=== PATIENT | male | born 1945 | race Caucasian/White ===

== ENCOUNTER 2016-10-08 07:35 | Inpatient (IN) | payer OTHER ==
--- NOTE | 2016-10-08 07:57 | EDPHY ---
H & P Time Seen by Provider: 10/08/16 07:57 HPI/ROS: CHIEF COMPLAINT: Per the patient, I feel helpless, per his he needs somewhere to be HISTORY OF PRESENT ILLNESS: This 71-year-old man has a long history of alcoholism. Apparently he has the admission arranged at [facility] in [place] for detox but starting gait is unclear. The patient presents telling his nurse he feels suicidal and telling me he feels hopeless and tired of living alcohol control my life. Apparently his filed for divorce yesterday. She says that he is leaving burners on and intermittently hallucinating at home. The patient has never had diagnosis of DTs or alcohol withdrawal seizures. His last drink he says was last night. Patient admits to suicidal thoughts but currently denies a plan. Symptoms moderate. REVIEW OF SYSTEMS: Eye: no change in vision ENT: no sore throat Cardiac: no chest pain or syncope Pulmonary: no cough or SOB Abdomen: no vomiting, diarrhea, abdominal pain Musculoskeletal: no back pain or neck pain, old right upper extremity amputation unchanged. Skin: Abrasion on his left elbow and right forehead and both knees from multiple falls over the past week. Neuro: no headache Constitutional: no fever : no urinary symptoms A comprehensive 10 point review of systems is otherwise negative aside from elements mentioned in the history of present illness. 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 Anxiety and alcoholism. Liang history and physical dated 12/19/2015 personally reviewed by myself. Includes hypertension, trigeminal neuralgia, hepatitis-C. Social history: Smoker, uses alcohol. General Appearance: Alert and conversant, cooperative. Eyes: No scleral icterus. ENT, Mouth: Dry mucous membranes. Respiratory: Normal respiratory effort, breath sounds equal, lungs are clear to auscultation. Cardiovascular: Regular rate and rhythm. Tachycardic. Gastrointestinal: Abdomen is soft and non tender. Neurological: Alert and oriented x3. Normally conversant. Face symmetric, normal movement and sensation in all extremities. He is moderately tremulous. He is not confused. He is able to lift each leg off the bed independently and is able to have a logical conversation with me. Skin: Warm and dry, no rashes. Musculoskeletal: Right upper extremity above elbow amputation, stump looks clean dry and intact. Psychiatric: Not agitated. Depressed, admits suicidal ideation, denies plan. Emergency Department course/MDM: Alcohol 106 but patient clinically has evidence of withdrawal. 1 mg Ativan IV. Case management and psychiatric consultations. 1105: additional 2mg IV ativan for continued tremor. 1156: Still tremulous after 3mgIV ativan; 2 additional mg IV ativan. Admit for alcohol withdrawal, 5mg IV ativan in ED. Smoking Status: Current every day smoker Constitutional: Initial Vital Signs Temperature (C) 36.6 C 10/08/16 07:40 Heart Rate 111 H 10/08/16 07:40 Respiratory Rate 22 H 10/08/16 07:40 Blood Pressure 141/94 H 10/08/16 07:40 O2 Sat (%) 97 10/08/16 07:40 O2 Delivery Mode Room Air Allergies/Adverse Reactions: No Known Allergies Allergy (Verified 10/08/16 07:39) Home Medications: Medication Instructions Recorded Herbals/Supplements -Info Only 1 ea PO DAILY 12/18/15 Ibuprofen [Motrin (*)] 200 mg PO Q8 PRN 12/18/15 Lisinopril [Zestril 40 mg (*)] 40 mg PO DAILY 12/18/15 Multivitamins [Multivitamin (*)] 1 each PO DAILY 12/18/15 Naphazoline HCl/Glycerin [Redness 1 drop EACHEYE DAILY PRN 12/18/15 Relief Eye Drops] [place]-3 Fatty Acids [Fish Oil 1000 1,000 mg PO DAILY 12/18/15 mg (*)] Amitriptyline HCl [Elavil 50 mg 25 mg PO HS #30 tab 12/23/15 (*)] Levothyroxine [Synthroid 25 mcg 25 mcg PO DAILY10 #30 tab 12/23/15 (*)] Pregabalin [Lyrica] 25 mg PO TID #90 cap 12/23/15 Tetrahydrozoline 0.05% [Visine (*)] 1 drops OP PRN PRN #0 opht.btl 12/23/15 Medical Decision Making - Diagnostics EKG Interpretation: 12-lead EKG interpreted by me; official reading is in trace master. My interpretation is sinus tachycardia, no acute ischemic changes. Imaging: Negative noncontrast head CT for trauma, reviewed by myself. Differential Diagnosis: Differential for depression considered including but not limited to axis 1 depression, situational reaction, metabolic, drug or alcohol related. Consult/Admit Bed Type: [facility] for Danny 1205 Critical Care Time: Critical care time spent by me, Dr. Patricia, exclusively with the care of this patient was 30 minutes, exclusive of PA or TRUCK DRIVER RUBBISH COLLECTOR time and exclusive of separate procedures. The organ system at risk was neurologic with alcohol withdrawal and I ordered multiple diagnostic studies including labs and imaging, multiple doses of intravenous benzodiazepines, discussion with hospitalist and repeat evaluations, to stabilize the patient and prevent worsening of the patient's condition. - Data Points Laboratory Results: Laboratory Results 10/08/16 08:02 10/08/16 08:02 10/08/16 10/08/16 08:58 08:02 WBC 4.44 10^3/uL (3.80-9.50) RBC 4.20 L 10^6/uL (4.40-6.38) Hgb 15.0 g/dL (13.7-17.5) Hct 42.3 % (40.0-51.0) MCV 100.7 H fL (81.5-99.8) MCH 35.7 H pg (27.9-34.1) MCHC 35.5 g/dL (32.4-36.7) RDW 12.8 % (11.5-15.2) Plt Count 185 10^3/uL (150-400) MPV 9.7 fL (8.7-11.7) Neut % (Auto) 61.9 % (39.3-74.2) Lymph % (Auto) 24.1 % (15.0-45.0) [place] % (Auto) 11.3 % (4.5-13.0) Eos % (Auto) 1.6 % (0.6-7.6) Baso % (Auto) 0.9 % (0.3-1.7) Nucleat RBC Rel Count 0.0 % (0.0-0.2) Absolute Neuts (auto) 2.75 10^3/uL (1.70-6.50) Absolute Lymphs (auto) 1.07 10^3/uL (1.00-3.00) Absolute Monos (auto) 0.50 10^3/uL (0.30-0.80) Absolute Eos (auto) 0.07 10^3/uL (0.03-0.40) Absolute Basos (auto) 0.04 10^3/uL (0.02-0.10) Absolute Nucleated RBC 0.00 10^3/uL (0-0.01) Immature Gran % 0.2 % (0.0-1.1) Immature Gran # 0.01 10^3/uL (0.00-0.10) Sodium 142 mEq/L (134-144) Potassium 3.7 mEq/L (3.5-5.2) Chloride 102 mEq/L (97-110) Carbon Dioxide 23 mEq/l (22-31) Anion Gap 17 mEq/L (8-16) BUN 14 mg/dL (7-23) Creatinine 0.8 mg/dL (0.7-1.3) Estimated GFR > 60 Glucose 126 H mg/dL (70-100) Calcium 8.9 mg/dL (8.5-10.4) Total Bilirubin 1.1 mg/dL (0.1-1.4) AST 181 H IU/L (17-59) ALT 120 H IU/L (21-72) Alkaline Phosphatase 125 IU/L (38-126) Total Protein 6.8 g/dL (6.3-8.2) Albumin 4.4 g/dL (3.5-5.0) TSH 4.150 uIU/mL (0.465-4.680) Salicylates < 1.0 L mg/dL (2.0-20.0) Urine Opiates Screen NEGATIVE (NEGATIVE) Acetaminophen < 10 L mcg/mL (10.0-30.0) Urine Barbiturates NEGATIVE (NEGATIVE) Ur Phencyclidine Scrn NEGATIVE (NEGATIVE) Ur Amphetamine Screen NEGATIVE (NEGATIVE) U Benzodiazepines Scrn NEGATIVE (NEGATIVE) Urine Cocaine Screen NEGATIVE (NEGATIVE) U Marijuana (THC) Screen NEGATIVE (NEGATIVE) Ethyl Alcohol 106 H mg/dL (0-10) Medications Given: Discontinued Medications Chlordiazepoxide HCl (Librium) 50 mg PO ONCE ONE Stop: 10/08/16 13:25 Last Admin: 10/08/16 13:53 Dose: Not Given Sodium Chloride (Ns) 1,000 mls @ 0 mls/hr IV EDNOW ONE PRN Reason: As Directed Stop: 10/08/16 08:09 Last Admin: 10/08/16 08:10 Dose: 1,000 mls Sodium Chloride (Ns) 1,000 mls @ 0 mls/hr IV ONCE ONE PRN Reason: Wide Open Stop: 10/08/16 11:58 Last Admin: 10/08/16 12:00 Dose: 1,000 mls Lorazepam (Ativan Injection) 1 mg IVP EDNOW ONE Stop: 10/08/16 08:36 Last Admin: 10/08/16 08:58 Dose: 1 mg Lorazepam (Ativan Injection) 2 mg IVP EDNOW ONE Stop: 10/08/16 11:16 Last Admin: 10/08/16 11:21 Dose: 2 mg Lorazepam (Ativan Injection) 2 mg IVP EDNOW ONE Stop: 10/08/16 11:57 Last Admin: 10/08/16 12:06 Dose: 2 mg Departure - Departure Disposition: [facility] Acute Clinical Impression: Alcohol withdrawal Qualifiers: Qualifier Code: (F10.230) Alcohol dependence with withdrawal, uncomplicated Condition: Fair
[2016-10-08] MEDS ORDERED: NS 1,000 ML IV ONE ×2 (08:08→11:57)
[2016-10-08 08:11] LABS: % IMMATURE GRANULYOCYTES 0.2 % (0.0-1.1); ABSOLUTE IMMATURE GRANULOCYTES 0.01 10^3/uL (0.00-0.10); ADD DIFF? NO; ADD MORPH? NO; ADD SCAN? NO; ATYPICAL LYMPHOCYTE FLAG 0 (0-99); FRAGMENT RBC FLAG 0 (0-99); HEMATOCRIT 42.3 % (40.0-51.0); LEFT SHIFT FLG 0 (0-99); LIPEMIA HEMOLYSIS FLAG 90 (0-99); MEAN CELL HEMOGLOBIN 35.7 pg (27.9-34.1); MEAN CELL HEMOGLOBIN CONCENTR. 35.5 g/dL (32.4-36.7); MEAN CELL VOLUME 100.7 fL (81.5-99.8); MEAN PLATELET VOLUME 9.7 fL (8.7-11.7); PLATELET CLUMPS FLAG 0 (0-99); PLATELET COUNT 185 10^3/uL (150-400); RED CELL DISTRIBUTION WIDTH 12.8 % (11.5-15.2)
[2016-10-08 08:26] LABS: ALANINE AMINOTRANSFERASE 120 IU/L (21-72); ALBUMIN 4.4 g/dL (3.5-5.0); ALKALINE PHOSPHATASE 125 IU/L (38-126); ANION GAP 17 mEq/L (8-16); ASPARTATE AMINOTRANSFERASE 181 IU/L (17-59); BILIRUBIN,TOTAL 1.1 mg/dL (0.1-1.4); CALCIUM 8.9 mg/dL (8.5-10.4); CARBON DIOXIDE 23 mEq/l (22-31); CHLORIDE 102 mEq/L (97-110); CREATININE 0.8 mg/dL (0.7-1.3); ETHANOL SERUM 106 mg/dL (0-10); GLOMERULAR FILTRATION RATE > 60; GLUCOSE 126 mg/dL (70-100); POTASSIUM 3.7 mEq/L (3.5-5.2); SODIUM 142 mEq/L (134-144); TOTAL PROTEIN 6.8 g/dL (6.3-8.2)
[2016-10-08] MEDS ORDERED: LORazepam 2 MG/ML INJ IVP ONE ×3 (08:35→11:56)
[2016-10-08 09:01] LABS: SALICYLATE < 1.0 mg/dL (2.0-20.0)
--- NOTE | 2016-10-08 11:11 | CPEKG ---
Heart Rate: 102 RR Interval: 588 P-R Interval: 168 QRSD Interval: 84 QT Interval: 344 QTC Interval: 449 P [place]: 69 QRS [place]: 46 T Wave [place]: 69 EKG Severity - OTHERWISE NORMAL ECG - EKG Impression: SINUS TACHYCARDIA Electronically Signed By: Frandy Patricia 08-Oct-2016 11:59:12
[2016-10-08] MEDS ORDERED: LORazepam 2 MG/ML INJ ONE (11:25)
--- NOTE | 2016-10-08 12:06 | CT ---
CT Brain (Without Contrast) at 1131 hours History: Head trauma, altered mental status, EtOH. Fall, hit right for head. Comparison: August 2016. Technique: Axial computed tomographic images of the brain without contrast. Dose reduction technique s were utilized. Findings: Ventricles, cisterns, and sulci are slightly widened consistent mild atrophy. No hydroceph alus, midline shift/herniation, or epidural/subdural hematomas. No acute intraparenchymal hemorrhage, definite infarct, or mass effect. Bone windows demonstrate no displaced fractures. Paranasal sinuses and mastoid air cells are clear. Impression: 1. Mild cerebral atrophy.. 2. No epidural or subdural hematoma. Findings and recommendations discussed with Emergency Department physician, Dr. Frandy Patricia, at 1205 ho ur, today. Final report concurs with initial preliminary interpretation.
[2016-10-08] MEDS ORDERED: THIAMINE HCL 500 MG in NS 100 ML IV ONE (13:24)
[2016-10-08] MEDS ORDERED: NS 1,000 ML IV SCH (13:30)
[2016-10-08] MEDS: chlordiazePOXIDE 25 MG CAP PO ONE ×2 (13:44→13:53)
[2016-10-08] MEDS: LORazepam 2 MG/ML INJ IVP PRN ×3 (13:53→22:05)
[2016-10-08] MEDS ORDERED: ONDANSETRON DISINTEGRATING 4 MG TAB PO PRN (14:13)
[2016-10-08] MEDS ORDERED: ONDANSETRON 4 MG/2 ML VIAL IVP PRN (14:13)
[2016-10-08] MEDS: D5W 1/2 NS W/ 20 KCl/L 1,000 ML IV SCH (14:31)
[2016-10-08] MEDS: DEXMEDETOMIDINE HCL 400 MCG in NS 100 ML IV SCH (15:56)
--- NOTE | 2016-10-08 17:41 | GHP ---
[f rep st] HISTORY AND PHYSICAL DATE OF ADMISSION: 10/08/2016 CHIEF COMPLAINT: Alcohol withdrawal. HISTORY OF PRESENT ILLNESS: This is a 71-year-old male with a history of significant alcoholism. He has been bingeing quite severely for the last several weeks. His apparently filed for divorce yesterday and since then he has been hallucinating and going into DTs. According to the ER physician, he has admitted to suicidal thoughts. The patient is quite confused at this time and not really par ticipating in history. REVIEW OF SYSTEMS: A 10-point review of systems was obtained and was otherwise negative. PAST MEDICAL HISTORY: 1. Alcoholism. 2. Right upper extremity amputation for bone cancer as a child. 3. Hypertension. 4. Trigeminal neuralgia. 5. Hepatitis C. SOCIAL HISTORY: Smoker. Drinks significant amount of alcohol daily. FAMILY HISTORY: Father had alcoholism. PHYSICAL EXAM: VITAL SIGNS: Afebrile. Blood pressure is 137/81, heart rate 95, oxygen saturation 9 6% on room air. GENERAL: Patient is confused but no apparent distress. HEENT: Nonicteric sclerae. Extraocular movements intact. Moist mucous membranes. NECK: Supple. No thyromegaly. LUNGS: Go od effort. Clear to auscultation bilaterally. CARDIOVASCULAR: Regular rate and rhythm. No murmurs , gallops. ABDOMEN: Positive bowel sounds. Soft, nontender, nondistended. No hepatosplenomegaly. EXTREMITIES: No clubbing, cyanosis, or edema. Right arm amputation. NEURO: Confused and tremulou s. LABORATORY DATA: CBC is normal. Chemistry is essentially normal. There are elevated liver function tests. Alcohol level is 106. IMAGING: CT scan head is negative. ASSESSMENT: This is a 71-year-old male presenting with alcohol withdrawal. PLAN: Will place on [facility] protocol. I think the patient's is looking at inpatient types of [facility]. /[id number]/MODL
[2016-10-09 05:07] LABS: % IMMATURE GRANULYOCYTES 0.4 % (0.0-1.1); ABSOLUTE IMMATURE GRANULOCYTES 0.01 10^3/uL (0.00-0.10); ADD DIFF? NO; ADD MORPH? NO; ADD SCAN? NO; ATYPICAL LYMPHOCYTE FLAG 10 (0-99); FRAGMENT RBC FLAG 0 (0-99); HEMATOCRIT 34.7 % (40.0-51.0); HEMOGLOBIN 12.1 g/dL (13.7-17.5); LEFT SHIFT FLG 0 (0-99); LIPEMIA HEMOLYSIS FLAG 90 (0-99); MEAN CELL HEMOGLOBIN 35.6 pg (27.9-34.1); MEAN CELL HEMOGLOBIN CONCENTR. 34.9 g/dL (32.4-36.7); MEAN CELL VOLUME 102.1 fL (81.5-99.8); MEAN PLATELET VOLUME 10.1 fL (8.7-11.7); PLATELET CLUMPS FLAG 0 (0-99); PLATELET COUNT 105 10^3/uL (150-400); RED CELL DISTRIBUTION WIDTH 12.1 % (11.5-15.2)
[2016-10-09 05:24] LABS: ANION GAP 7 mEq/L (8-16); CARBON DIOXIDE 23 mEq/l (22-31); CHLORIDE 107 mEq/L (97-110); CREATININE 0.5 mg/dL (0.7-1.3); GLOMERULAR FILTRATION RATE > 60; GLUCOSE 139 mg/dL (70-100); MAGNESIUM 1.7 mg/dL (1.6-2.3); POTASSIUM 4.3 mEq/L (3.5-5.2); SODIUM 137 mEq/L (134-144)
[2016-10-09] MEDS: ENOXAPARIN 40 MG/0.4 ML SYR SC SCH (08:39)
[2016-10-09] MEDS: chlordiazePOXIDE 25 MG CAP PO PRN ×4 (08:39→21:03)
[2016-10-09] MEDS: THIAMINE HCL 500 MG in NS 100 ML IV SCH (08:39)
[2016-10-09] MEDS ORDERED: MAGNESIUM SULF 2 GM/WATER 50 ML IV ONE (10:47)
--- NOTE | 2016-10-09 10:57 | HOSPPROG ---
Hospitalist Progress Note Assessment/Plan: * alcohol withdrawal * continue Librium/ Ativan/ Precedex * urinary retention * Angel placed * probably due to BPH * start Flomax * hypertension * probable depression Subjective: Confused Objective: Vital Signs Temp Pulse Resp BP Pulse Ox 35 C L 47 L 20 137/83 H 97 10/09/16 08:00 10/09/16 10:06 10/09/16 10:06 10/09/16 10:06 10/09/16 10:06 Laboratory Results 10/09/16 04:55 10/09/16 04:55 10/08/16 10/09/16 10/10/16 05:59 05:59 05:59 Intake Total 4628 Output Total 550 Balance 4078 - Physical Exam Constitutional: no apparent distress, appears nourished, not in pain Eyes: anicteric sclera, EOMI Ears, Nose, Mouth, Throat: moist mucous membranes, hearing normal, ears appear normal Cardiovascular: regular rate and rhythym Respiratory: no respiratory distress Gastrointestinal: normoactive bowel sounds, soft, non-tender abdomen, no palpable masses Neurologic: No AAOx3 Psychiatric: interacting appropriately, not anxious, not encephalopathic, thought process linear ICD10 Worksheet Patient Problems: Problems Problem Status Diagnosed Alcohol withdrawal Acute PTSD (post-traumatic stress disorder) Acute Severe major depression Acute
[2016-10-09] MEDS: TAMSULOSIN HCL 0.4 MG CAP PO SCH ×2 (11:41→21:03)
--- NOTE | 2016-10-09 12:23 | GCON ---
[f rep st] CONSULTATION FUNERAL ASSISTANT CONSULTATION REASON FOR ADMISSION: Alcohol withdrawal. HISTORY OF PRESENT ILLNESS: The patient is a 71-year-old white male with a past medical history of a lcoholism, right upper extremity amputation as a child, hypertension, hepatitis C, trigeminal neuralg ia. He apparently had been binge drinking for the last several weeks. His recently filed for d ivorce. He has been hallucinating, going into DTs. He was also having some suicidal ideation and he was admitted. Currently, he is resting comfortably. He is currently on CIWA protocol. PAST MEDICAL HISTORY: Significant for alcoholism, right upper extremity amputation, hypertension, tr igeminal neuralgia, hepatitis C. ALLERGIES: No known allergies to medications. SOCIAL HISTORY: Excessive alcohol use. He is also a smoker. He is though going through a d ivorce. PHYSICAL EXAM: VITAL SIGNS: Blood pressure is 123/77, pulse 64, respirations 17, temp 35, oxygen sa turation 97% on room air. GENERAL: He is a well-developed, well-nourished 71-year-old male who is c onfused and vaguely arousable. HEENT: Eyes: OPAL. EOMI. Throat shows no erythema or tonsillar hy pertrophy. NECK: Supple. No cervical adenopathy. HEART: Regular rate and rhythm without murmurs, rubs, or gallops. LUNGS: Mild prolongation of expiratory phase but no wheeze. ABDOMEN: Soft, non tender. Bowel sounds present in all 4 quadrants. EXTREMITIES: No clubbing, cyanosis, or edema. LABORATORIES: White count is 2.6, hemoglobin 12, hematocrit 34, platelet count is 105, MCV is elevat ed at 102. Sodium 137, potassium 4.3, chloride 107, CO2 23, BUN 12, creatinine 0.5, glucose is 139. Alcohol level is 106. IMPRESSION: 1. Alcoholism. 2. Acute alcohol withdrawal. 3. History of hypertension. 4. Hepatitis C. RECOMMENDATION: 1. Agree with CIWA protocol. 2. DVT and PE prophylaxis. 3. Stress ulcer prophylaxis. 4. Adequate nutrition. /[id number]/MODL
[2016-10-09] MEDS: LORazepam 2 MG/ML INJ IVP PRN ×5 (12:52→22:57)
[2016-10-09] MEDS: DEXMEDETOMIDINE HCL 400 MCG in NS 100 ML IV SCH (15:34)
[2016-10-09] MEDS: D5W 1/2 NS W/ 20 KCl/L 1,000 ML IV SCH (16:18)
[2016-10-10 05:35] LABS: % IMMATURE GRANULYOCYTES 0.2 % (0.0-1.1); ABSOLUTE IMMATURE GRANULOCYTES 0.01 10^3/uL (0.00-0.10); ADD DIFF? NO; ADD MORPH? NO; ADD SCAN? NO; ATYPICAL LYMPHOCYTE FLAG 0 (0-99); FRAGMENT RBC FLAG 0 (0-99); HEMATOCRIT 36.3 % (40.0-51.0); HEMOGLOBIN 12.8 g/dL (13.7-17.5); LEFT SHIFT FLG 0 (0-99); LIPEMIA HEMOLYSIS FLAG 90 (0-99); MEAN CELL HEMOGLOBIN 36.3 pg (27.9-34.1); MEAN CELL HEMOGLOBIN CONCENTR. 35.3 g/dL (32.4-36.7); MEAN CELL VOLUME 102.8 fL (81.5-99.8); MEAN PLATELET VOLUME 10.6 fL (8.7-11.7); PLATELET CLUMPS FLAG 0 (0-99); PLATELET COUNT 101 10^3/uL (150-400); RED BLOOD CELL COUNT 3.53 10^6/uL (4.40-6.38); RED CELL DISTRIBUTION WIDTH 12.2 % (11.5-15.2)
[2016-10-10 05:46] LABS: ANION GAP 6 mEq/L (8-16); CALCIUM 7.8 mg/dL (8.5-10.4); CARBON DIOXIDE 21 mEq/l (22-31); CHLORIDE 109 mEq/L (97-110); CREATININE 0.5 mg/dL (0.7-1.3); GLOMERULAR FILTRATION RATE > 60; GLUCOSE 139 mg/dL (70-100); MAGNESIUM 1.9 mg/dL (1.6-2.3); POTASSIUM 4.4 mEq/L (3.5-5.2); SODIUM 136 mEq/L (134-144)
[2016-10-10] MEDS: D5W 1/2 NS W/ 20 KCl/L 1,000 ML IV SCH (08:10)
[2016-10-10] MEDS: THIAMINE HCL 500 MG in NS 100 ML IV SCH (08:10)
--- NOTE | 2016-10-10 09:09 | PDINTPN ---
Operational Intelligence Officer Progress Note Assessment/Plan: Assessment/Plan: * ETOH abuse * ETOH withdraw-high CIWA score -continue protocol -continue precedex * HTN * Hep C * VTE proph * Stress ulcer proph Subjective: somnolent, but arousable. Objective: Vital Signs Temp Pulse Resp BP Pulse Ox 36.8 C 60 29 H 111/66 97 10/09/16 20:00 10/10/16 07:39 10/10/16 07:39 10/10/16 07:39 10/10/16 07:39 Laboratory Results 10/10/16 05:00 10/10/16 05:00 10/09/16 10/10/16 10/11/16 05:59 05:59 05:59 Intake Total 4628 3506 Output Total 550 2600 Balance 4078 906 Physical Exam - Physical Exam General Appearance: No alert EENT: PERRL/EOMI, normal ENT inspection, pharynx normal Neck: non-tender, full range of motion, supple, normal inspection Respiratory: decreased breath sounds, prolonged expiration, No respiratory distress Cardiac/Chest: normal peripheral pulses, regular rate, rhythm, systolic murmur Peripheral Pulses: 2+: carotid (R), carotid (L), femoral (R), femoral (L), dorsalis-pedis (R), dorsalis-pedis (L) Abdomen: normal bowel sounds, non-tender, soft Male Genitalia: deferred Rectal: deferred Skin: normal color, warm/dry Extremities: normal range of motion, non-tender, normal inspection, normal capillary refill Neuro/Psych: No alert, No oriented x 3 ICD10 Worksheet Patient Problems: Problems Problem Status Diagnosed Alcohol withdrawal Acute PTSD (post-traumatic stress disorder) Acute Severe major depression Acute
[2016-10-10] MEDS: TAMSULOSIN HCL 0.4 MG CAP PO SCH ×2 (09:44→21:35)
[2016-10-10] MEDS: ENOXAPARIN 40 MG/0.4 ML SYR SC SCH (09:44)
[2016-10-10] MEDS: chlordiazePOXIDE 25 MG CAP PO PRN (10:12)
[2016-10-10] MEDS ORDERED: TETRAHYDROZOLINE 0.05% 15 ML OPHT.BTL OP PRN (10:13)
[2016-10-10] MEDS: DEXMEDETOMIDINE HCL 400 MCG in NS 100 ML IV SCH (12:50)
--- NOTE | 2016-10-10 15:29 | HOSPPROG ---
Hospitalist Progress Note Assessment/Plan: * alcohol withdrawal * continue Librium/ Ativan/ Precedex * urinary retention * Rivas placed * probably due to BPH * start Flomax * hypertension * probable depression Subjective: confused and somewhat agitated at times Objective: Vital Signs Temp Pulse Resp BP Pulse Ox 36.8 C 64 21 H 120/70 97 10/09/16 20:00 10/10/16 12:00 10/10/16 12:00 10/10/16 12:00 10/10/16 12:00 Laboratory Results 10/10/16 05:00 10/10/16 05:00 10/09/16 10/10/16 10/11/16 05:59 05:59 05:59 Intake Total 4644 3506 Output Total 550 2600 Balance 4078 906 - Physical Exam Constitutional: no apparent distress, appears nourished, not in pain Eyes: anicteric sclera, EOMI Ears, Nose, Mouth, Throat: moist mucous membranes Cardiovascular: regular rate and rhythym Respiratory: no respiratory distress, no rales or rhonchi, clear to auscultation Gastrointestinal: normoactive bowel sounds, soft, non-tender abdomen, no palpable masses Genitourinary: rivas in urethra Skin: warm Neurologic: No AAOx3 Psychiatric: encephalopathic ICD10 Worksheet Patient Problems: Problems Problem Status Diagnosed Alcohol withdrawal Acute PTSD (post-traumatic stress disorder) Acute Severe major depression Acute
[2016-10-10] MEDS: chlordiazePOXIDE 25 MG CAP PO SCH ×2 (17:25→21:35)
[2016-10-10] MEDS: GABAPENTIN 100 MG CAP PO SCH ×2 (17:25→21:35)
[2016-10-10] MEDS: LORazepam 2 MG/ML INJ IVP PRN (20:19)
[2016-10-10] MEDS ORDERED: AMITRIPTYLINE HCL 50 MG TAB PO SCH (21:00)
[2016-10-10] MEDS: AMITRIPTYLINE HCL 25 MG TAB PO SCH (21:35)
[2016-10-11] MEDS: LORazepam 2 MG/ML INJ IVP PRN ×4 (01:14→23:37)
[2016-10-11 04:32] LABS: % IMMATURE GRANULYOCYTES 0.6 % (0.0-1.1); ABSOLUTE IMMATURE GRANULOCYTES 0.04 10^3/uL (0.00-0.10); ADD DIFF? NO; ADD MORPH? NO; ADD SCAN? NO; ATYPICAL LYMPHOCYTE FLAG 0 (0-99); FRAGMENT RBC FLAG 0 (0-99); HEMATOCRIT 35.1 % (40.0-51.0); HEMOGLOBIN 12.7 g/dL (13.7-17.5); LEFT SHIFT FLG 0 (0-99); LIPEMIA HEMOLYSIS FLAG 90 (0-99); MEAN CELL HEMOGLOBIN 36.5 pg (27.9-34.1); MEAN CELL HEMOGLOBIN CONCENTR. 36.2 g/dL (32.4-36.7); MEAN CELL VOLUME 100.9 fL (81.5-99.8); MEAN PLATELET VOLUME 10.5 fL (8.7-11.7); PLATELET CLUMPS FLAG 0 (0-99); PLATELET COUNT 100 10^3/uL (150-400); RED BLOOD CELL COUNT 3.48 10^6/uL (4.40-6.38); RED CELL DISTRIBUTION WIDTH 11.9 % (11.5-15.2)
[2016-10-11 04:47] LABS: ANION GAP 4 mEq/L (8-16); CALCIUM 7.7 mg/dL (8.5-10.4); CARBON DIOXIDE 24 mEq/l (22-31); CHLORIDE 108 mEq/L (97-110); CREATININE 0.5 mg/dL (0.7-1.3); GLOMERULAR FILTRATION RATE > 60; GLUCOSE 96 mg/dL (70-100); MAGNESIUM 1.8 mg/dL (1.6-2.3); POTASSIUM 3.7 mEq/L (3.5-5.2); SODIUM 136 mEq/L (134-144)
[2016-10-11] MEDS: THIAMINE HCL 100 MG TAB PO SCH (08:08)
[2016-10-11] MEDS: GABAPENTIN 100 MG CAP PO SCH ×3 (08:08→23:15)
[2016-10-11] MEDS: chlordiazePOXIDE 25 MG CAP PO SCH ×3 (08:09→23:15)
[2016-10-11] MEDS: LISINOPRIL 40 MG TAB PO SCH (08:09)
[2016-10-11] MEDS: LEVOTHYROXINE 25 MCG TAB PO SCH (08:09)
[2016-10-11] MEDS: ENOXAPARIN 40 MG/0.4 ML SYR SC SCH (08:11)
--- NOTE | 2016-10-11 08:57 | PDINTPN ---
Semiconductor Processing Technician Progress Note Assessment/Plan: Assessment/Plan: * ETOH abuse * ETOH withdraw-still with high CIWA score -continue protocol -continue precedex * HTN * Hep C * VTE proph * Stress ulcer proph Subjective: Sedated/somnolent Objective: Vital Signs Temp Pulse Resp BP Pulse Ox 36.4 C 53 L 16 119/93 H 98 10/11/16 07:34 10/11/16 07:34 10/11/16 07:34 10/11/16 08:09 10/11/16 07:34 Laboratory Results 10/11/16 04:21 10/11/16 04:21 10/10/16 10/11/16 10/12/16 05:59 05:59 05:59 Intake Total 3506 2914 Output Total 2600 2500 Balance 906 414 Laboratory Results 10/11/16 04:21 10/11/16 04:21 10/11/16 04:21 Calcium 7.7 L mg/dL (8.5 - 10.4) Phosphorus 4.0 mg/dL (2.5 - 4.5) Magnesium 1.8 mg/dL (1.6 - 2.3) Physical Exam - Physical Exam General Appearance: no apparent distress, No alert EENT: PERRL/EOMI, normal ENT inspection, pharynx normal, TMs normal Neck: non-tender, full range of motion, supple, normal inspection Respiratory: chest non-tender, lungs clear, normal breath sounds Cardiac/Chest: normal peripheral pulses, regular rate, rhythm, systolic murmur Peripheral Pulses: 2+: carotid (R), carotid (L), femoral (R), femoral (L), dorsalis-pedis (R), dorsalis-pedis (L) Abdomen: normal bowel sounds, non-tender, soft Male Genitalia: deferred Rectal: deferred Skin: normal color, warm/dry Extremities: normal range of motion, non-tender, normal inspection, normal capillary refill ICD10 Worksheet Patient Problems: Problems Problem Status Diagnosed Alcohol withdrawal Acute PTSD (post-traumatic stress disorder) Acute Severe major depression Acute
[2016-10-11] MEDS ORDERED: TAMSULOSIN HCL 0.4 MG CAP PO SCH (09:00)
[2016-10-11] MEDS: TAMSULOSIN HCL 0.4 MG CAP PO SCH ×2 (09:04→23:15)
[2016-10-11] MEDS: D5W 1/2 NS W/ 20 KCl/L 1,000 ML IV SCH ×2 (10:03→18:11)
[2016-10-11] MEDS: DEXMEDETOMIDINE HCL 400 MCG in NS 100 ML IV SCH (10:57)
--- NOTE | 2016-10-11 13:48 | HOSPPROG ---
Hospitalist Progress Note Assessment/Plan: * alcohol withdrawal * continue Librium/ Ativan/ Precedex * urinary retention * Rivas placed * probably due to BPH * patient was on Flomax at home. Increase to twice daily * hypertension * probable depression Subjective: no new events Objective: Vital Signs Temp Pulse Resp BP Pulse Ox 36.4 C 56 L 26 H 121/85 H 98 10/11/16 12:00 10/11/16 12:00 10/11/16 12:00 10/11/16 12:00 10/11/16 12:00 Laboratory Results 10/11/16 04:21 10/11/16 04:21 10/10/16 10/11/16 10/12/16 05:59 05:59 05:59 Intake Total 3506 2914 Output Total 2600 2500 Balance 906 414 discussed with Pulmonary - Physical Exam Constitutional: no apparent distress, appears nourished, not in pain Eyes: anicteric sclera, EOMI Ears, Nose, Mouth, Throat: moist mucous membranes Cardiovascular: regular rate and rhythym Respiratory: no respiratory distress Gastrointestinal: normoactive bowel sounds, soft, non-tender abdomen, no palpable masses Genitourinary: rivas in urethra Neurologic: No AAOx3 ICD10 Worksheet Patient Problems: Problems Problem Status Diagnosed Alcohol withdrawal Acute PTSD (post-traumatic stress disorder) Acute Severe major depression Acute
[2016-10-11] MEDS: AMITRIPTYLINE HCL 25 MG TAB PO SCH (23:15)
[2016-10-12] MEDS: DEXMEDETOMIDINE HCL 400 MCG in NS 100 ML IV SCH ×3 (02:29→17:19)
[2016-10-12] MEDS: LORazepam 2 MG/ML INJ IVP PRN ×2 (03:33→07:40)
[2016-10-12 04:07] LABS: % IMMATURE GRANULYOCYTES 0.4 % (0.0-1.1); ABSOLUTE IMMATURE GRANULOCYTES 0.03 10^3/uL (0.00-0.10); ADD DIFF? NO; ADD MORPH? NO; ADD SCAN? NO; ATYPICAL LYMPHOCYTE FLAG 0 (0-99); FRAGMENT RBC FLAG 0 (0-99); HEMATOCRIT 37.2 % (40.0-51.0); HEMOGLOBIN 13.1 g/dL (13.7-17.5); LEFT SHIFT FLG 0 (0-99); LIPEMIA HEMOLYSIS FLAG 90 (0-99); MEAN CELL HEMOGLOBIN 36.3 pg (27.9-34.1); MEAN CELL HEMOGLOBIN CONCENTR. 35.2 g/dL (32.4-36.7); MEAN PLATELET VOLUME 10.6 fL (8.7-11.7); PLATELET CLUMPS FLAG 0 (0-99); PLATELET COUNT 111 10^3/uL (150-400); RED BLOOD CELL COUNT 3.61 10^6/uL (4.40-6.38); RED CELL DISTRIBUTION WIDTH 11.9 % (11.5-15.2)
[2016-10-12 04:23] LABS: ALANINE AMINOTRANSFERASE 64 IU/L (21-72); ALBUMIN 2.5 g/dL (3.5-5.0); ALKALINE PHOSPHATASE 83 IU/L (38-126); ANION GAP 9 mEq/L (8-16); ASPARTATE AMINOTRANSFERASE 59 IU/L (17-59); BILIRUBIN,TOTAL 0.9 mg/dL (0.1-1.4); CARBON DIOXIDE 23 mEq/l (22-31); CHLORIDE 109 mEq/L (97-110); CREATININE 0.5 mg/dL (0.7-1.3); GLOMERULAR FILTRATION RATE > 60; GLUCOSE 78 mg/dL (70-100); MAGNESIUM 1.9 mg/dL (1.6-2.3); POTASSIUM 3.8 mEq/L (3.5-5.2); SODIUM 141 mEq/L (134-144); TOTAL PROTEIN 5.2 g/dL (6.3-8.2)
[2016-10-12] MEDS: D5W 1/2 NS W/ 20 KCl/L 1,000 ML IV SCH ×2 (07:31→15:33)
--- NOTE | 2016-10-12 08:42 | PDINTPN ---
Transcription Typist Progress Note Assessment/Plan: Assessment/Plan: * ETOH abuse * ETOH withdraw-worse. Still with high CIWA score, hallucinations and now restrained -continue protocol -continue precedex * HTN * Hep C * VTE proph * Stress ulcer proph Overall, slow to improve Subjective: Awake, but terrribly confused. Objective: Vital Signs Temp Pulse Resp BP Pulse Ox 36.7 C 65 21 H 144/88 H 99 10/12/16 04:00 10/12/16 07:59 10/12/16 07:59 10/12/16 07:59 10/12/16 07:59 Laboratory Results 10/12/16 03:58 10/12/16 03:58 10/11/16 10/12/16 10/13/16 05:59 05:59 05:59 Intake Total 2914 2797 Output Total 2500 4000 Balance 414 -1203 Laboratory Results 10/12/16 03:58 10/12/16 03:58 10/12/16 03:58 Calcium 8.0 L mg/dL (8.5 - 10.4) Magnesium 1.9 mg/dL (1.6 - 2.3) Total Bilirubin 0.9 mg/dL (0.1 - 1.4) AST 59 IU/L (17 - 59) ALT 64 IU/L (21 - 72) Alkaline Phosphatase 83 IU/L (38 - 126) Total Protein 5.2 L g/dL (6.3 - 8.2) Albumin 2.5 L g/dL (3.5 - 5.0) Physical Exam - Physical Exam General Appearance: other (awake), No alert EENT: PERRL/EOMI, normal ENT inspection, pharynx normal Neck: non-tender, full range of motion, supple, normal inspection Respiratory: chest non-tender, lungs clear, normal breath sounds Cardiac/Chest: normal peripheral pulses, regular rate, rhythm Peripheral Pulses: 2+: carotid (R), carotid (L), femoral (R), femoral (L), dorsalis-pedis (R), dorsalis-pedis (L) Abdomen: normal bowel sounds, non-tender, soft Male Genitalia: deferred Rectal: deferred Skin: normal color, warm/dry Extremities: other (right arm amputation) Neuro/Psych: cognition abnormalities, disoriented to place, disoriented to time , No alert, No oriented x 3 ICD10 Worksheet Patient Problems: Problems Problem Status Diagnosed Alcohol withdrawal Acute PTSD (post-traumatic stress disorder) Acute Severe major depression Acute
[2016-10-12] MEDS: THIAMINE HCL 100 MG TAB PO SCH (12:03)
[2016-10-12] MEDS: ENOXAPARIN 40 MG/0.4 ML SYR SC SCH (12:03)
[2016-10-12] MEDS: chlordiazePOXIDE 25 MG CAP PO SCH ×3 (12:03→21:10)
[2016-10-12] MEDS: GABAPENTIN 100 MG CAP PO SCH ×3 (12:03→21:10)
[2016-10-12] MEDS: LISINOPRIL 40 MG TAB PO SCH (12:03)
[2016-10-12] MEDS: LEVOTHYROXINE 25 MCG TAB PO SCH (12:03)
[2016-10-12] MEDS: TAMSULOSIN HCL 0.4 MG CAP PO SCH ×2 (12:03→20:47)
--- NOTE | 2016-10-12 13:38 | HOSPPROG ---
Hospitalist Progress Note Assessment/Plan: # Acute alcohol withdrawal- patient with agitation overnight requiring IV Precedex oxygen saturations 95% on room air- patient remains very confused this morning telemetry( personally reviewed and interpreted) sinus rhythm - continue Precedex - continue CIWA # acute urinary retention- suspect secondary to BPH- Angel placed - Flomax increased to twice daily # hypertension - systolic blood pressures ranging 120-150 - continue lisinopril # suspected depression- likely contributing # prophylaxis Lovenox # diet regular when protecting airway # disposition greater than 2 midnights as patient requiring IV Precedex and critical care I have discussed the case with Dr. Mckinney - we will work to wean Precedex once safe Subjective: believe sees in [place] Objective: Vital Signs Temp Pulse Resp BP Pulse Ox 36.7 C 60 19 157/77 H 98 10/12/16 04:00 10/12/16 12:09 10/12/16 12:09 10/12/16 12:09 10/12/16 12:09 Laboratory Results 10/12/16 03:58 10/12/16 03:58 10/11/16 10/12/16 10/13/16 05:59 05:59 05:59 Intake Total 2914 2797 Output Total 2500 4000 Balance 414 -1203 - Physical Exam Constitutional: appears nourished Eyes: anicteric sclera Ears, Nose, Mouth, Throat: dry mucous membranes Cardiovascular: regular rate and rhythym Respiratory: no respiratory distress, no rales or rhonchi Gastrointestinal: normoactive bowel sounds, soft, non-tender abdomen Genitourinary: no bladder fullness Skin: warm, normal color Musculoskeletal: No asymmetric calves Neurologic: No AAOx3 Psychiatric: No agitated Lymph, Heme, Immunologic: no cervical LAD ICD10 Worksheet Patient Problems: Problems Problem Status Diagnosed Alcohol withdrawal Acute PTSD (post-traumatic stress disorder) Acute Severe major depression Acute
[2016-10-12] MEDS: AMITRIPTYLINE HCL 25 MG TAB PO SCH (20:47)
[2016-10-13] MEDS: DEXMEDETOMIDINE HCL 400 MCG in NS 100 ML IV SCH ×3 (01:15→19:08)
[2016-10-13] MEDS: LORazepam 2 MG/ML INJ IVP PRN ×2 (01:19→17:05)
[2016-10-13 04:36] LABS: HEMATOCRIT 37.4 % (40.0-51.0); HEMOGLOBIN 13.5 g/dL (13.7-17.5); MEAN CELL HEMOGLOBIN 36.4 pg (27.9-34.1); MEAN CELL HEMOGLOBIN CONCENTR. 36.1 g/dL (32.4-36.7); MEAN CELL VOLUME 100.8 fL (81.5-99.8); RED BLOOD CELL COUNT 3.71 10^6/uL (4.40-6.38); RED CELL DISTRIBUTION WIDTH 11.9 % (11.5-15.2)
[2016-10-13 04:55] LABS: ANION GAP 7 mEq/L (8-16); CALCIUM 8.4 mg/dL (8.5-10.4); CARBON DIOXIDE 21 mEq/l (22-31); CHLORIDE 110 mEq/L (97-110); CREATININE 0.5 mg/dL (0.7-1.3); GLOMERULAR FILTRATION RATE > 60; GLUCOSE 146 mg/dL (70-100); POTASSIUM 4.7 mEq/L (3.5-5.2); SODIUM 138 mEq/L (134-144); SPECIMEN HEMOLYSIS 126
[2016-10-13] MEDS: D5W 1/2 NS W/ 20 KCl/L 1,000 ML IV SCH ×2 (07:36→15:22)
[2016-10-13] MEDS: ENOXAPARIN 40 MG/0.4 ML SYR SC SCH (11:12)
[2016-10-13] MEDS: TAMSULOSIN HCL 0.4 MG CAP PO SCH ×2 (11:12→22:18)
[2016-10-13] MEDS: LISINOPRIL 40 MG TAB PO SCH (11:12)
[2016-10-13] MEDS: GABAPENTIN 100 MG CAP PO SCH ×3 (11:12→22:19)
[2016-10-13] MEDS: THIAMINE HCL 100 MG TAB PO SCH (11:12)
[2016-10-13] MEDS: LEVOTHYROXINE 25 MCG TAB PO SCH (11:12)
[2016-10-13] MEDS: chlordiazePOXIDE 25 MG CAP PO SCH ×3 (11:12→22:19)
--- NOTE | 2016-10-13 12:14 | PDINTPN ---
Supervisor [place] Progress Note Assessment/Plan: Assessment/plan: * Alcohol withdrawal- still with episodes of agitated delerium and remains on precedex drip with CIWA; though scoring less. * Platelets 113 today and slowly drifting down. May be 2/2 splenic sequestration versus HIT, though suspicion is low. follow for now. * HTN- controlled * Hep C * 10/13/16 12:11 Objective: Vital Signs Temp Pulse Resp BP Pulse Ox 36.3 C 62 20 113/70 100 10/13/16 07:29 10/13/16 11:38 10/13/16 11:38 10/13/16 11:38 10/13/16 11:38 Laboratory Results 10/13/16 04:15 10/13/16 04:15 10/12/16 10/13/16 10/14/16 05:59 05:59 05:59 Intake Total 7527 3279 Output Total 4000 4175 Balance -1203 -896 Physical Exam - Physical Exam General Appearance: no apparent distress, other (somnolent but answers questions and follows commands), No alert EENT: PERRL/EOMI, No scleral icterus (R) Neck: non-tender, full range of motion Respiratory: lungs clear, normal breath sounds, No respiratory distress, No rales, No rhonchi, No wheezing Cardiac/Chest: normal peripheral pulses, regular rate, rhythm, No edema, No JVD Abdomen: normal bowel sounds, non-tender, soft Skin: normal color, warm/dry Extremities: No normal inspection, No pedal edema, No swelling Neuro/Psych: no motor/sensory deficits ICD10 Worksheet Patient Problems: Problems Problem Status Diagnosed Alcohol withdrawal Acute PTSD (post-traumatic stress disorder) Acute Severe major depression Acute
--- NOTE | 2016-10-13 20:21 | HOSPPROG ---
Hospitalist Progress Note Assessment/Plan: # Acute alcohol withdrawal- patient with agitation again overnight requiring IV Precedex today oxygen saturations 95% on room air- patient remains very confused this morning telemetry(personally reviewed and interpreted) sinus rhythm - continue Precedex - continue CIWA # acute urinary retention- suspect secondary to BPH- Rivas placed- creatinine 0.5 - Flomax increased to twice daily - cont rivas 2/2 confusion # hypertension - systolic blood pressures ranging 120-150 - continue lisinopril # suspected depression- likely contributing # prophylaxis Lovenox # diet regular when protecting airway # disposition greater than 2 midnights as patient requiring IV Precedex and critical care I have discussed the case with Dr. Mckinney - patient slowly improving continue precedex for now Subjective: denies pain Objective: Vital Signs Temp Pulse Resp BP Pulse Ox 36.3 C 63 20 114/71 100 10/13/16 15:27 10/13/16 15:27 10/13/16 15:27 10/13/16 16:06 10/13/16 15:27 Laboratory Results 10/13/16 04:15 10/13/16 04:15 10/12/16 10/13/16 10/14/16 05:59 05:59 05:59 Intake Total 6370 5841 1928 Output Total 4000 6125 1300 Balance -1203 894 628 - Physical Exam Constitutional: appears nourished Eyes: anicteric sclera Ears, Nose, Mouth, Throat: moist mucous membranes Cardiovascular: regular rate and rhythym Respiratory: no respiratory distress, no rales or rhonchi Gastrointestinal: normoactive bowel sounds, soft, non-tender abdomen Genitourinary: no bladder fullness Skin: normal color Musculoskeletal: No asymmetric calves Neurologic: No AAOx3 Psychiatric: No interacting appropriately Lymph, Heme, Immunologic: no cervical LAD ICD10 Worksheet Patient Problems: Problems Problem Status Diagnosed Alcohol withdrawal Acute PTSD (post-traumatic stress disorder) Acute Severe major depression Acute
[2016-10-13] MEDS: AMITRIPTYLINE HCL 25 MG TAB PO SCH (22:18)
[2016-10-14] MEDS: DEXMEDETOMIDINE HCL 400 MCG in NS 100 ML IV SCH (05:17)
[2016-10-14 07:23] LABS: ANION GAP 7 mEq/L (8-16); CALCIUM 8.4 mg/dL (8.5-10.4); CARBON DIOXIDE 24 mEq/l (22-31); CHLORIDE 110 mEq/L (97-110); CREATININE 0.6 mg/dL (0.7-1.3); GLOMERULAR FILTRATION RATE > 60; GLUCOSE 77 mg/dL (70-100); POTASSIUM 4.2 mEq/L (3.5-5.2); SODIUM 141 mEq/L (134-144)
[2016-10-14] MEDS: LORazepam 2 MG/ML INJ IVP PRN ×2 (07:32→17:45)
[2016-10-14] MEDS: ENOXAPARIN 40 MG/0.4 ML SYR SC SCH (08:17)
[2016-10-14] MEDS: TAMSULOSIN HCL 0.4 MG CAP PO SCH ×2 (08:18→22:08)
[2016-10-14] MEDS: chlordiazePOXIDE 25 MG CAP PO SCH ×2 (08:18→22:00)
[2016-10-14] MEDS: THIAMINE HCL 100 MG TAB PO SCH (08:18)
[2016-10-14] MEDS: GABAPENTIN 100 MG CAP PO SCH ×3 (08:18→21:59)
[2016-10-14] MEDS: LISINOPRIL 40 MG TAB PO SCH (08:18)
[2016-10-14] MEDS: LEVOTHYROXINE 25 MCG TAB PO SCH (08:26)
[2016-10-14] MEDS ORDERED: OLANZapine DISINTEGR 5 MG TAB PO ONE (10:46)
[2016-10-14] MEDS ORDERED: LORazepam 2 MG/ML INJ IVP PRN ×2 (10:46→10:47)
[2016-10-14] MEDS ORDERED: LORazepam 2 MG/ML INJ IVP SCH (12:00)
--- NOTE | 2016-10-14 13:25 | HOSPPROG ---
Hospitalist Progress Note Assessment/Plan: # Acute alcohol withdrawal- patient with agitation again overnight requiring IV Precedex overnight oxygen saturations 100% on room air- patient remains very confused this morning telemetry (personally reviewed and interpreted) sinus rhythm - wean Precedex - stop chlorazepate - lower dose ativan scheduled until off precedex - starting zyprexa # acute urinary retention- suspect secondary to BPH- Rivas placed- creatinine 0.6 - Flomax increased to twice daily - cont rivas 2/2 confusion # hypertension - systolic blood pressures ranging 120-150 - continue lisinopril # suspected depression- likely contributing # prophylaxis Lovenox # diet regular when protecting airway # disposition greater than 2 midnights as patient requiring IV Precedex and critical care I have discussed the case with Dr. Mckinney - will start low-dose zyprexa to wean patient off Precedex today Subjective: denies pain Objective: Vital Signs Temp Pulse Resp BP Pulse Ox 35.7 C L 105 H 19 114/81 H 100 10/14/16 07:51 10/14/16 12:00 10/14/16 12:00 10/14/16 12:00 10/14/16 12:00 Laboratory Results 10/13/16 04:15 10/14/16 06:00 10/13/16 10/14/16 10/15/16 05:59 05:59 05:59 Intake Total 3279 3657 Output Total 4175 3050 Balance -896 607 - Physical Exam Constitutional: chronically ill appearing Eyes: anicteric sclera Ears, Nose, Mouth, Throat: dry mucous membranes Cardiovascular: regular rate and rhythym Respiratory: no respiratory distress, no rales or rhonchi Gastrointestinal: normoactive bowel sounds, soft, non-tender abdomen Genitourinary: no bladder fullness Skin: warm, normal color Musculoskeletal: No asymmetric calves Neurologic: No AAOx3 Psychiatric: No interacting appropriately Lymph, Heme, Immunologic: no cervical LAD ICD10 Worksheet Patient Problems: Problems Problem Status Diagnosed Alcohol withdrawal Acute PTSD (post-traumatic stress disorder) Acute Severe major depression Acute
--- NOTE | 2016-10-14 13:31 | PDINTPN ---
Sand Miller Progress Note Assessment/Plan: Assessment/plan: * Alcohol withdrawal- Improving though still with episodic confusion. He may be clearing his etoh wd and benzos may be actually adding to his delerium. There may be an element of underlying dementia as well, according to his . Trial of alternate agents, eg Zyprexa and try to limit benzos and down-titrate precedex. * Platelets 113 today and slowly drifting down. May be 2/2 splenic sequestration versus HIT, though suspicion is low. Recheck in AM * HTN- controlled * Hep C * Objective: Vital Signs Temp Pulse Resp BP Pulse Ox 35.7 C L 105 H 19 114/81 H 100 10/14/16 07:51 10/14/16 12:00 10/14/16 12:00 10/14/16 12:00 10/14/16 12:00 Laboratory Results 10/13/16 04:15 10/14/16 06:00 10/13/16 10/14/16 10/15/16 05:59 05:59 05:59 Intake Total 3279 3657 Output Total 4172 3050 Balance -896 607 Physical Exam - Physical Exam General Appearance: alert, other (confused, up in chair) EENT: PERRL/EOMI Neck: non-tender, supple Respiratory: lungs clear, normal breath sounds, No respiratory distress, No rales, No wheezing Cardiac/Chest: normal peripheral pulses, regular rate, rhythm Abdomen: normal bowel sounds, non-tender, soft Skin: normal color, warm/dry, No rash Lymphatic: No no adenopathy Extremities: non-tender, No pedal edema Neuro/Psych: alert ICD10 Worksheet Patient Problems: Problems Problem Status Diagnosed Alcohol withdrawal Acute PTSD (post-traumatic stress disorder) Acute Severe major depression Acute
[2016-10-14] MEDS: NS 1,000 ML IV SCH (18:38)
[2016-10-14] MEDS: METOPROLOL TARTRATE 25 MG TAB PO SCH ×2 (18:39→22:00)
--- NOTE | 2016-10-14 19:36 | CPEKG ---
Heart Rate: 96 RR Interval: 625 P-R Interval: 204 QRSD Interval: 98 QT Interval: 388 QTC Interval: 491 P [place]: 65 QRS [place]: 38 T Wave [place]: 67 EKG Severity - ABNORMAL ECG - EKG Impression: SINUS RHYTHM EKG Impression: ISAI, CONSIDER BIATRIAL ABNORMALITIES EKG Impression: PROBABLE POSTERIOR INFARCT EKG Impression: BORDERLINE PROLONGED QT INTERVAL EKG Impression: MODERATE BASELINE ARTIFACT Electronically Signed By: Ry Darby 15-Oct-2016 13:37:49
[2016-10-14 19:51] LABS: ANION GAP 8 mEq/L (8-16); CALCIUM 8.7 mg/dL (8.5-10.4); CARBON DIOXIDE 23 mEq/l (22-31); CHLORIDE 108 mEq/L (97-110); CREATININE 0.6 mg/dL (0.7-1.3); GLOMERULAR FILTRATION RATE > 60; GLUCOSE 109 mg/dL (70-100); MAGNESIUM 1.8 mg/dL (1.6-2.3); POTASSIUM 4.1 mEq/L (3.5-5.2); SODIUM 139 mEq/L (134-144)
[2016-10-14 20:03] LABS: TROPONIN I < 0.012 ng/mL (0-0.034)
[2016-10-14] MEDS ORDERED: IOPAMIDOL (ISOVUE 370) 100 ML BTL IV ONE (20:19)
--- NOTE | 2016-10-14 21:29 | CT ---
CT Pulmonary Angiogram Clinical Indications: Shortness of breath and elevated D-dimer in a 71-year-old male; evaluate for p ulmonary embolic disease. Technique: Thinly collimated multidetector helical CT imaging was performed through the chest while 90 mL of Isovue-370 were injected intravenously, without complication. The images were obtained at 4 -mm thickness and reconstructed at 1.5-mm thickness. Sagittal and coronal reconstructions were perfo rmed. The examination is reviewed on the workstation by the interpreting physician at multiple windo w/level settings. Dose reduction techniques were utilized. Findings Chest: Bilateral pleural effusions are noted, and there is bilateral lower lung consolidation, which is presumably compressive atelectasis rather than pneumonia. There is linear opacity, with associat ed pleural thickening, at the right lung apex. This has not changed significantly compared to the pr evious CT scan of the chest of February 19, 2010. Hilar and mediastinal contours are normal. The heart s ize is normal. Hepatic low-attenuation raises the possibility of steatosis. The upper abdomen is ne gative for acute abnormality on this arterial phase study. CT Pulmonary Angiogram: The pulmonary arterial system is well opacified. No intraluminal filling de fects are seen to suggest acute or chronic pulmonary embolic disease. No vascular malformations are seen. Minimal calcified aortic plaque formation is noted. The thoracic aorta has a normal contour, without evidence of aneurysm or dissection. Impressions 1. No evidence of pulmonary embolic disease. 2. Bilateral pleural effusions and basilar opacities, probably atelectasis rather than pneumonia. 3. Apical scarring on the right side. 4. See above report for additional findings.
[2016-10-14] MEDS: AMITRIPTYLINE HCL 25 MG TAB PO SCH (22:00)
[2016-10-14] MEDS ORDERED: chlordiazePOXIDE 25 MG CAP PO SCH (22:00)
[2016-10-14] MEDS: OLANZapine DISINTEGR 5 MG TAB PO SCH (22:00)
[2016-10-15] MEDS: LORazepam 2 MG/ML INJ IVP PRN (01:03)
[2016-10-15 05:12] LABS: HEMATOCRIT 38.7 % (40.0-51.0); HEMOGLOBIN 13.6 g/dL (13.7-17.5); MEAN CELL HEMOGLOBIN 35.2 pg (27.9-34.1); MEAN CELL HEMOGLOBIN CONCENTR. 35.1 g/dL (32.4-36.7); MEAN CELL VOLUME 100.3 fL (81.5-99.8); RED BLOOD CELL COUNT 3.86 10^6/uL (4.40-6.38); RED CELL DISTRIBUTION WIDTH 12.2 % (11.5-15.2)
[2016-10-15 05:32] LABS: ANION GAP 10 mEq/L (8-16); CALCIUM 8.1 mg/dL (8.5-10.4); CARBON DIOXIDE 24 mEq/l (22-31); CHLORIDE 110 mEq/L (97-110); CREATININE 0.6 mg/dL (0.7-1.3); GLOMERULAR FILTRATION RATE > 60; GLUCOSE 76 mg/dL (70-100); POTASSIUM 3.3 mEq/L (3.5-5.2); SODIUM 144 mEq/L (134-144)
[2016-10-15] MEDS: METOPROLOL TARTRATE 25 MG TAB PO SCH ×2 (08:30→19:25)
[2016-10-15] MEDS: TAMSULOSIN HCL 0.4 MG CAP PO SCH ×2 (08:32→19:27)
[2016-10-15] MEDS: LISINOPRIL 40 MG TAB PO SCH (08:33)
[2016-10-15] MEDS: ENOXAPARIN 40 MG/0.4 ML SYR SC SCH (08:34)
[2016-10-15] MEDS: chlordiazePOXIDE 25 MG CAP PO SCH (08:34)
[2016-10-15] MEDS: GABAPENTIN 100 MG CAP PO SCH ×3 (08:34→21:44)
--- NOTE | 2016-10-15 09:14 | HOSPPROG ---
Hospitalist Progress Note Assessment/Plan: 71 yo M a delirium tremens tachycardia: rates 150-200 regular suspect AF vs SVT currently not tachy PE workup neg no anticoag consider BB await echo Acute alcohol withdrawal- 1. off precedex 2. decrease clorazepate to 5 tid gareth 3. ativan is prn- use sparingly 4. hs zyprexa hypokalemia: replete hypomag: replete acute urinary retention- suspect secondary to BPH- Rivas placed- creatinine 0.6 - Flomax increased to twice daily - cont rivas 2/2 confusion hypertension - systolic blood pressures ranging 120-150 - continue lisinopril suspected depression- likely contributing prophylaxis Lovenox diet regular # disposition greater than 2 midnights as patient requiring IV Precedex and critical care I have discussed the case with Dr. Mckinney - will start low-dose zyprexa to wean patient off Precedex today Subjective: episode of narrow complex tachycardia yesterday afternoon (tele interp by me). PE workup neg. case d/w Dr. Mckinney Objective: Vital Signs Temp Pulse Resp BP Pulse Ox 36.8 C 100 19 164/92 H 98 10/15/16 07:32 10/15/16 07:32 10/15/16 07:32 10/15/16 07:32 10/15/16 07:32 Laboratory Results 10/15/16 04:30 10/15/16 04:30 10/14/16 10/15/16 10/16/16 05:59 05:59 05:59 Intake Total 3657 2078 Output Total 3050 3850 500 Balance 607 -2892 -500 - Physical Exam Constitutional: no apparent distress, other (alert, moderate confusion) Eyes: PERRL, anicteric sclera Ears, Nose, Mouth, Throat: moist mucous membranes, hearing normal Cardiovascular: regular rate and rhythym, no murmur, rub, or gallop, No systolic murmur Respiratory: no respiratory distress, no rales or rhonchi, clear to auscultation Gastrointestinal: normoactive bowel sounds, soft, non-tender abdomen, no palpable masses Genitourinary: rivas in urethra Skin: warm, normal color Musculoskeletal: full muscle strength, no muscle tenderness Neurologic: sensation intact bilaterally, No AAOx3 Psychiatric: interacting appropriately ICD10 Worksheet Patient Problems: Problems Problem Status Diagnosed Alcohol withdrawal Acute PTSD (post-traumatic stress disorder) Acute Severe major depression Acute
[2016-10-15] MEDS ORDERED: MAGNESIUM SULF 2 GM/WATER 50 ML IV ONE (09:15)
[2016-10-15] MEDS: POTASSIUM CL 20 MEQ PKT PO SCH (10:07)
[2016-10-15] MEDS: LEVOTHYROXINE 25 MCG TAB PO SCH (10:23)
[2016-10-15] MEDS: THIAMINE HCL 100 MG TAB PO SCH (10:23)
--- NOTE | 2016-10-15 10:47 | ECHO ---
[id number] + + [address] : : [place] [address] : : [phone] + + Adult Echocardiographic Report + -----+ :Name: MIKE HANSENmac Date: 10/15/2016 07:48 AM BP: 164/92 mmHg : : Hospital Admission Number: [id number] Location : 243: :: 1945 Gender: Male Height: 70 in : :Age: 71 yrs Race: WH Weight: 130 lb : :Reason For Study: HTN SVT : : BSA: 1.7 meters2 : :History: ETOH withdrawal; HTN; SVT : + -----+ MMode/2D Measurements & Calculations IVSd: 1.3 cm LVIDd: 3.8 cm FS: 39.8 % Ao root diam: 3.1 cm LVPWd: 1.00 cm LVIDs: 2.3 cm EDV(Teich): 61.6 ml ESV(Teich): 17.8 ml EF(Teich): 71.1 % LVOT diam: 2.3 cm LVOT area: 4.1 cm2 Normal Measurement Values: + + :LVIDd (3.5-5.7cm) IVSd (0.6-1.1cm) LVPWd (0.6-1.1cm) Aortic Root (2.0-3.7cm)Left Atrium (1.5-4.0cm): :LV Vol(d) (76-115ml) LV Vol(s) (29-48ml) Ejec Fraction (50-65%)PV Jabari (0.6- 1.2m/s) TV Jabari (0.4-1.0m/s) : :MV E Jabari (0.8-1.0m/s)MV A Jabari (0.3-1.0m/s)LVOT Jabari (0.7-1.2m/s) Asc Ao Jabari ( 0.9-1.8m/s) : + + Doppler Measurements & Calculations MV E max jabari: Ao V2 max: LV V1 max: PA V2 max: 44.4 cm/sec 129.9 cm/sec 72.1 cm/sec 84.2 cm/sec MV A max jabari: Ao max P.8 mmHg LV V1 max PG: PA max P.1 cm/sec 2.1 mmHg 2.8 mmHg MV E/A: 0.63 YONG(V,D): 2.3 cm2 Left Ventricle The left ventricle is normal in size and function. There is mild asymmetric left ventricular hypertrophy. Ejection Fraction = 65-70%. There is Doppler evidence for diastolic dysfunction. No obvious regional wall motion abnormalities however it is difficult to rule out due to suboptimal endocardial definition. Right Ventricle Grossly normal RV size and function. Atria The left atrial size is normal. Right atrial size is normal. Mitral Valve The mitral valve is normal in structure and function. There is no mitral valve stenosis. There is no mitral regurgitation noted. Tricuspid Valve The tricuspid valve is not well visualized. There is no tricuspid stenosis. No tricuspid regurgitation. Aortic Valve The aortic valve is trileaflet. Mild Aortic Valve Calcification. There is no aortic stenosis. There is no aortic insufficiency. Pulmonic Valve The pulmonic valve is not well visualized. Great Vessels The aortic root is normal size. Sinus of valvsalva upper limits of normal. Pericardium/Pleural There is no pericardial effusion. Conclusion A two-dimensional transthoracic echocardiogram with M-mode and Doppler was performed. Technically difficult study with suboptimal windows. The left ventricle is normal in size and function. There is mild asymmetric left ventricular hypertrophy. Ejection Fraction = 65-70%. There is Doppler evidence for diastolic dysfunction. No obvious regional wall motion abnormalities however it is difficult to rule out due to suboptimal endocardial definition. Final Reading Physician: Dr Jigna Mendosa electronically signed on 10/15/2016 10:46 AM Ordering Physician: Ry Lemus Performed By: Chanda Sarmiento
--- NOTE | 2016-10-15 12:37 | PDINTPN ---
Primary Health Organisation Manager Progress Note Assessment/Plan: Assessment/plan: * Alcohol withdrawal- More alert but still confused today; off precedex but episode of tachycardia last pm (a flutter?). Librium dose decreased today as well. Continue Zyprexa * Tachy- currently sinus. Possible precedex rebound phenomenon. Observe. * Thrombocytopenia- resolved. * HTN- controlled * Hep C * Objective: Vital Signs Temp Pulse Resp BP Pulse Ox 36.9 C 94 22 H 155/108 H 93 10/15/16 11:34 10/15/16 11:34 10/15/16 11:34 10/15/16 11:34 10/15/16 11:34 Laboratory Results 10/15/16 04:30 10/15/16 04:30 10/14/16 10/15/16 10/16/16 05:59 05:59 05:59 Intake Total 3657 2078 Output Total 3050 3850 500 Balance 607 -6869 -500 Physical Exam - Physical Exam General Appearance: no apparent distress, other (confused but alert and follows commands. Up in chair. ) EENT: PERRL/EOMI, normal ENT inspection Neck: non-tender, supple Respiratory: lungs clear, normal breath sounds, No respiratory distress, No rales, No wheezing Cardiac/Chest: normal peripheral pulses, regular rate, rhythm, No edema, No JVD Abdomen: non-tender, soft Skin: normal color, warm/dry, No rash Lymphatic: no adenopathy Extremities: non-tender, No pedal edema Neuro/Psych: alert, No oriented x 3, No abnormal chemical laboratory technician II-XII ICD10 Worksheet Patient Problems: Problems Problem Status Diagnosed Alcohol withdrawal Acute PTSD (post-traumatic stress disorder) Acute Severe major depression Acute
[2016-10-15] MEDS: NS 1,000 ML IV SCH (16:03)
[2016-10-15] MEDS: AMITRIPTYLINE HCL 25 MG TAB PO SCH (19:27)
[2016-10-15] MEDS: OLANZapine DISINTEGR 5 MG TAB PO SCH (19:27)
[2016-10-16] MEDS: NS 1,000 ML IV SCH (00:04)
--- NOTE | 2016-10-16 00:25 | CPEKG ---
Heart Rate: 156 RR Interval: 385 P-R Interval: 152 QRSD Interval: 80 QT Interval: 228 QTC Interval: 367 P [place]: -72 QRS [place]: 50 EKG Severity - ABNORMAL ECG - EKG Impression: SUPRAVENTRICULAR TACHYCARDIA PSEUDO R PRIME IN LEAD III SUGGESTS AVNRT EKG Impression: REPOLARIZATION ABNORMALITY, PROB RATE RELATED Electronically Signed By: Esvin Fabian 16-Oct-2016 12:09:13
[2016-10-16] MEDS ORDERED: METOPROLOL TARTRATE 5 MG/5 ML INJ ONE (00:27)
[2016-10-16] MEDS ORDERED: METOPROLOL TARTRATE 5 MG/5 ML INJ IVP ONE ×2 (00:28→07:52)
[2016-10-16 04:42] LABS: ANION GAP 6 mEq/L (8-16); CALCIUM 7.6 mg/dL (8.5-10.4); CARBON DIOXIDE 22 mEq/l (22-31); CHLORIDE 115 mEq/L (97-110); CREATININE 0.5 mg/dL (0.7-1.3); GLOMERULAR FILTRATION RATE > 60; GLUCOSE 88 mg/dL (70-100); MAGNESIUM 1.9 mg/dL (1.6-2.3); POTASSIUM 3.3 mEq/L (3.5-5.2); SODIUM 143 mEq/L (134-144)
[2016-10-16] MEDS: METOPROLOL TARTRATE 25 MG TAB PO SCH ×2 (09:04→20:27)
[2016-10-16] MEDS: LISINOPRIL 40 MG TAB PO SCH (09:05)
[2016-10-16] MEDS: ENOXAPARIN 40 MG/0.4 ML SYR SC SCH (09:27)
[2016-10-16] MEDS: GABAPENTIN 100 MG CAP PO SCH ×3 (09:28→20:35)
[2016-10-16] MEDS: THIAMINE HCL 100 MG TAB PO SCH (09:28)
[2016-10-16] MEDS: TAMSULOSIN HCL 0.4 MG CAP PO SCH ×2 (09:28→20:33)
[2016-10-16] MEDS: POTASSIUM CL 20 MEQ PKT PO SCH (10:23)
[2016-10-16] MEDS: LEVOTHYROXINE 25 MCG TAB PO SCH (10:23)
--- NOTE | 2016-10-16 11:37 | HOSPPROG ---
Hospitalist Progress Note Assessment/Plan: 71 yo M a delirium tremens tachycardia: intermittent SVT on po BB echo unremarkable use prn IV bb Acute alcohol withdrawal- 1. off precedex 2. we have dc'd all benzos today- follow response hypokalemia: replete hypomag: replete acute urinary retention- suspect secondary to BPH- Rivas placed- creatinine 0.6 - Flomax increased to twice daily - cont rivas 2/2 confusion hypertension - systolic blood pressures ranging 120-150 - continue lisinopril suspected depression- likely contributing prophylaxis Lovenox diet regular # disposition greater than 2 midnights as patient requiring IV Precedex and critical care I have discussed the case with Dr. Mckinney - will start low-dose zyprexa to wean patient off Precedex today Subjective: case d/w dr mckinney. ekg overnight w SVT (interp by me). recurrent SVT on monitor Objective: Vital Signs Temp Pulse Resp BP Pulse Ox 37 C 101 H 17 140/89 H 97 10/16/16 08:00 10/16/16 09:04 10/16/16 08:00 10/16/16 09:05 10/16/16 08:00 Laboratory Results 10/15/16 04:30 10/16/16 04:20 10/15/16 10/16/16 10/17/16 05:59 05:59 05:59 Intake Total 2078 2711 Output Total 3850 3450 Balance -5511 -038 - Physical Exam Constitutional: no apparent distress, other (obtunded. less alert than yesterday ) Eyes: PERRL, anicteric sclera Ears, Nose, Mouth, Throat: moist mucous membranes, hearing normal Cardiovascular: regular rate and rhythym, no murmur, rub, or gallop, No systolic murmur Respiratory: no respiratory distress, no rales or rhonchi Gastrointestinal: normoactive bowel sounds, soft, non-tender abdomen Genitourinary: No rivas in urethra Skin: warm, normal color Musculoskeletal: full muscle strength, no muscle tenderness Neurologic: No AAOx3, No sensation intact bilaterally Psychiatric: not anxious, No interacting appropriately Lymph, Heme, Immunologic: no cervical LAD ICD10 Worksheet Patient Problems: Problems Problem Status Diagnosed Alcohol withdrawal Acute PTSD (post-traumatic stress disorder) Acute Severe major depression Acute
--- NOTE | 2016-10-16 12:09 | PDINTPN ---
Policy Loan Calculator Progress Note Assessment/Plan: Assessment/plan: 71 M admitted 10/08/16 with acute etoh wd. Long history of binge drinking and recent marital problems. Treated initially with precedex and CIWA protocol with slow improvement. Off Precedex as of 10/14 * Alcohol withdrawal- Remains confused. Agree with plans to minimize medications especially benzos. Librium decreased 10/15 and dc'd 10/16. * Tachy- sinus tachycardia around 110 and BP about 150/x. Monitor closely and holding back on beta david to avoid masking wd symptoms. I would initiate labetolol 10 mg q 6 prn SBP> 160 * Thrombocytopenia- resolved. * HTN- controlled. As above. * Hep C * 10/16/16 12:09 10/16/16 12:10 Objective: Vital Signs Temp Pulse Resp BP Pulse Ox 37 C 101 H 17 140/89 H 97 10/16/16 08:00 10/16/16 09:04 10/16/16 08:00 10/16/16 09:05 10/16/16 08:00 Laboratory Results 10/15/16 04:30 10/16/16 04:20 10/15/16 10/16/16 10/17/16 05:59 05:59 05:59 Intake Total 2484 6311 Output Total 4539 8846 Balance -4187 -045 Physical Exam - Physical Exam General Appearance: no apparent distress, other (confused and oriented x1) EENT: PERRL/EOMI, normal ENT inspection Neck: full range of motion, supple Respiratory: lungs clear, normal breath sounds, No respiratory distress Cardiac/Chest: normal peripheral pulses, regular rate, rhythm Abdomen: normal bowel sounds, non-tender, soft Skin: normal color, warm/dry, No rash Neuro/Psych: cognition abnormalities, other (awake but confused and calm) ICD10 Worksheet Patient Problems: Problems Problem Status Diagnosed Alcohol withdrawal Acute PTSD (post-traumatic stress disorder) Acute Severe major depression Acute
[2016-10-16] MEDS: POTASSIUM Cl (KCl) 100 ML IV SCH ×4 (13:20→16:29)
[2016-10-16] MEDS: AMITRIPTYLINE HCL 25 MG TAB PO SCH (20:26)
[2016-10-16] MEDS: OLANZapine DISINTEGR 5 MG TAB PO SCH (20:29)
[2016-10-16] MEDS: NS W/ 20 KCl/L 1,000 ML IV SCH (23:14)
[2016-10-17 05:53] LABS: ANION GAP 6 mEq/L (8-16); CALCIUM 6.2 mg/dL (8.5-10.4); CARBON DIOXIDE 19 mEq/l (22-31); CHLORIDE 119 mEq/L (97-110); CREATININE 0.5 mg/dL (0.7-1.3); GLOMERULAR FILTRATION RATE > 60; GLUCOSE 64 mg/dL (70-100); MAGNESIUM 1.5 mg/dL (1.6-2.3); POTASSIUM 4.6 mEq/L (3.5-5.2); SODIUM 144 mEq/L (134-144)
[2016-10-17] MEDS ORDERED: PROTOCOL MAGNESIUM 1 DOSE IV PRN (06:33)
[2016-10-17] MEDS ORDERED: PROTOCOL POTASSIUM 1 DOSE MISC PRN (06:33)
[2016-10-17] MEDS ORDERED: MAGNESIUM SULF 1 GM/DEXTROSE 100 ML IV ONE (07:01)
[2016-10-17] MEDS: LISINOPRIL 40 MG TAB PO SCH (07:31)
[2016-10-17] MEDS: POTASSIUM CL 20 MEQ PKT PO SCH (07:31)
[2016-10-17] MEDS: GABAPENTIN 100 MG CAP PO SCH ×3 (07:32→22:13)
[2016-10-17] MEDS: METOPROLOL TARTRATE 25 MG TAB PO SCH ×2 (07:32→22:12)
[2016-10-17] MEDS: ENOXAPARIN 40 MG/0.4 ML SYR SC SCH (07:32)
[2016-10-17] MEDS: TAMSULOSIN HCL 0.4 MG CAP PO SCH ×2 (07:35→22:15)
[2016-10-17] MEDS: THIAMINE HCL 100 MG TAB PO SCH (07:35)
--- NOTE | 2016-10-17 09:21 | HOSPPROG ---
Hospitalist Progress Note Assessment/Plan: 71 yo M a delirium tremens tachycardia: intermittent SVT on po BB echo unremarkable use prn IV bb none overnight; leave BB as is Acute alcohol withdrawal- 1. off precedex 2. we have dc'd all benzos today- follow response hypokalemia: replete hypomag: replete acute urinary retention- suspect secondary to BPH- Rivas placed- creatinine 0.6 - Flomax increased to twice daily - cont rivas / confusion will attempt rivas removal AM 10/18 hypertension - systolic blood pressures ranging 120-150 - continue lisinopril suspected depression- likely contributing prophylaxis Lovenox diet regular disposition: inpatient Subjective: more alert this AM. case d/w dr szymanski. tele: (interp by me) no AF since last night Objective: Vital Signs Temp Pulse Resp BP Pulse Ox 36.8 C 110 H 18 168/114 H 100 10/17/16 07:19 10/17/16 07:19 10/17/16 07:19 10/17/16 07:31 10/17/16 07:19 Laboratory Results 10/15/16 04:30 10/17/16 05:20 10/16/16 10/17/16 10/18/16 05:59 05:59 05:59 Intake Total 2711 2033 200 Output Total 3450 1390 Balance -739 643 200 - Physical Exam Constitutional: no apparent distress, No appears nourished Eyes: PERRL, anicteric sclera Ears, Nose, Mouth, Throat: moist mucous membranes, hearing normal, ears appear normal Cardiovascular: regular rate and rhythym, no murmur, rub, or gallop, No systolic murmur Respiratory: no respiratory distress, no rales or rhonchi Gastrointestinal: normoactive bowel sounds, soft, non-tender abdomen Genitourinary: rivas in urethra Skin: warm, normal color Musculoskeletal: no muscle tenderness, No full muscle strength Neurologic: No AAOx3 ICD10 Worksheet Patient Problems: Problems Problem Status Diagnosed Alcohol withdrawal Acute PTSD (post-traumatic stress disorder) Acute Severe major depression Acute
--- NOTE | 2016-10-17 11:33 | PDINTPN ---
Metal Finish Inspector Progress Note Assessment/Plan: Assessment/plan: 71 M admitted 10/08/16 with acute etoh wd. Long history of binge drinking and recent marital problems. Treated initially with precedex and CIWA protocol with slow improvement. Off Precedex as of 10/14 * Alcohol withdrawal- Improving confusion/delerium. Recieved librium overnight, but dc'd today. Remains on QHS Zyprexa * Tachy- Similar as 10/16. Monitor closely and holding back on beta david to avoid masking wd symptoms. I would initiate labetolol 10 mg q 6 prn SBP> 160 * Thrombocytopenia- resolved. * HTN- controlled. As above. * Hep C * likely PCU/medsurg status soon 10/16/16 12:09 10/16/16 12:10 10/17/16 11:31 Objective: Vital Signs Temp Pulse Resp BP Pulse Ox 36.7 C 72 17 125/77 H 98 10/17/16 11:22 10/17/16 11:22 10/17/16 11:22 10/17/16 11:22 10/17/16 11:22 Laboratory Results 10/15/16 04:30 10/17/16 05:20 10/16/16 10/17/16 10/18/16 05:59 05:59 05:59 Intake Total 2711 2033 200 Output Total 3450 1390 Balance -739 643 200 Physical Exam - Physical Exam General Appearance: alert, no apparent distress, other (less somnolent. Knew [facility]. Wanted to go fishing when he is able) EENT: PERRL/EOMI, pharynx normal Neck: full range of motion, supple Respiratory: lungs clear, normal breath sounds, No respiratory distress, No rales, No wheezing Cardiac/Chest: normal peripheral pulses, regular rate, rhythm Abdomen: non-tender, soft, No organomegaly Skin: warm/dry, No rash Lymphatic: no adenopathy Extremities: non-tender, No pedal edema Neuro/Psych: alert ICD10 Worksheet Patient Problems: Problems Problem Status Diagnosed Alcohol withdrawal Acute PTSD (post-traumatic stress disorder) Acute Severe major depression Acute
[2016-10-17] MEDS ORDERED: LIDOCAINE 1% 30 ML SDV ONE (11:59)
[2016-10-17] MEDS: LEVOTHYROXINE 25 MCG TAB PO SCH (14:22)
[2016-10-17] MEDS: NS W/ 20 KCl/L 1,000 ML IV SCH (16:09)
[2016-10-17 18:56] LABS: POTASSIUM 4.4 mEq/L (3.5-5.2)
[2016-10-17] MEDS: OLANZapine DISINTEGR 5 MG TAB PO SCH (22:11)
[2016-10-17] MEDS: AMITRIPTYLINE HCL 25 MG TAB PO SCH (22:12)
[2016-10-18 05:23] LABS: ANION GAP 11 mEq/L (8-16); CALCIUM 8.8 mg/dL (8.5-10.4); CARBON DIOXIDE 24 mEq/l (22-31); CHLORIDE 107 mEq/L (97-110); CREATININE 0.5 mg/dL (0.7-1.3); GLOMERULAR FILTRATION RATE > 60; GLUCOSE 86 mg/dL (70-100); MAGNESIUM 2.1 mg/dL (1.6-2.3); POTASSIUM 4.2 mEq/L (3.5-5.2); SODIUM 142 mEq/L (134-144)
[2016-10-18] MEDS: ENOXAPARIN 40 MG/0.4 ML SYR SC SCH (07:59)
[2016-10-18] MEDS: METOPROLOL TARTRATE 25 MG TAB PO SCH ×2 (07:59→22:32)
[2016-10-18] MEDS: LISINOPRIL 40 MG TAB PO SCH (08:00)
[2016-10-18] MEDS: POTASSIUM CL 20 MEQ PKT PO SCH (08:01)
[2016-10-18] MEDS: TAMSULOSIN HCL 0.4 MG CAP PO SCH ×2 (08:01→22:33)
[2016-10-18] MEDS: GABAPENTIN 100 MG CAP PO SCH ×3 (08:01→22:33)
[2016-10-18] MEDS: THIAMINE HCL 100 MG TAB PO SCH (08:01)
[2016-10-18] MEDS: LEVOTHYROXINE 25 MCG TAB PO SCH (09:01)
--- NOTE | 2016-10-18 11:19 | HOSPPROG ---
Hospitalist Progress Note Assessment/Plan: 71 yo M a delirium tremens tachycardia: intermittent SVT on po BB echo unremarkable ok to be off tele Acute alcohol withdrawal- 1. off precedex 2. we have dc'd all benzos today- follow response 3. slowly improving hypokalemia: dc electrolyte protocol hypomag: dc electrolyte protocol acute urinary retention- rivas out continue flomax hypertension - systolic blood pressures ranging 120-150 - continue lisinopril suspected depression- likely contributing prophylaxis Lovenox diet regular disposition: inpatient to floor Subjective: more alert. case d/w dr neal. tele: no svt in 2 days (interp by me) Objective: Vital Signs Temp Pulse Resp BP Pulse Ox 36.4 C 84 18 161/96 H 99 10/18/16 08:00 10/18/16 08:00 10/18/16 08:00 10/18/16 08:00 10/18/16 08:00 Laboratory Results 10/15/16 04:30 10/18/16 05:00 10/17/16 10/18/16 10/19/16 05:59 05:59 05:59 Intake Total 2033 1250 200 Output Total 1390 1800 150 Balance 643 -550 50 ICD10 Worksheet Patient Problems: Problems Problem Status Diagnosed Alcohol withdrawal Acute PTSD (post-traumatic stress disorder) Acute Severe major depression Acute
--- NOTE | 2016-10-18 11:38 | PDINTPN ---
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 Long history of binge drinking and recent marital problems. Treated initially with precedex and CIWA protocol with slow improvement. Off Precedex as of 10/14 * Alcohol withdrawal- Improving confusion/delerium. Recieved librium overnight, none since. Remains on QHS Zyprexa * Tachycardia- Improved. On metoprolol low dose * Thrombocytopenia- resolved. * HTN- controlled. As above. * Hep C Plan: Benzodiazepines PRN, but would use sparingly. OK to transfer to /. Begin discharge planning. Subjective: Calm, denies pain, answers inconsistently to other questions. Objective: Vital Signs Temp Pulse Resp BP Pulse Ox 36.4 C 91 17 152/79 H 100 10/18/16 11:20 10/18/16 11:20 10/18/16 11:20 10/18/16 11:20 10/18/16 11:20 Laboratory Results 10/15/16 04:30 10/18/16 05:00 10/17/16 10/18/16 10/19/16 05:59 05:59 05:59 Intake Total 2033 1250 200 Output Total 1390 1800 150 Balance 643 -550 50 Physical Exam - Physical Exam General Appearance: alert, no apparent distress EENT: normal ENT inspection Neck: normal inspection Respiratory: lungs clear, normal breath sounds Cardiac/Chest: regular rate, rhythm, No edema Abdomen: normal bowel sounds, non-tender, soft Skin: normal color, warm/dry Extremities: non-tender, normal inspection, other (RUE amputation.) Neuro/Psych: alert, normal mood/affect, oriented x 3 ICD10 Worksheet Patient Problems: Problems Problem Status Diagnosed Alcohol withdrawal Acute PTSD (post-traumatic stress disorder) Acute Severe major depression Acute
[2016-10-18 18:33] LABS: POTASSIUM 4.3 mEq/L (3.5-5.2)
[2016-10-18] MEDS: AMITRIPTYLINE HCL 25 MG TAB PO SCH (22:32)
[2016-10-18] MEDS: OLANZapine DISINTEGR 5 MG TAB PO SCH (22:33)
[2016-10-19 03:43] LABS: POTASSIUM 4.3 mEq/L (3.5-5.2)
[2016-10-19] MEDS: LISINOPRIL 40 MG TAB PO SCH (08:29)
[2016-10-19] MEDS: LEVOTHYROXINE 25 MCG TAB PO SCH (08:29)
[2016-10-19] MEDS: POTASSIUM CL 20 MEQ PKT PO SCH (08:29)
[2016-10-19] MEDS: TAMSULOSIN HCL 0.4 MG CAP PO SCH ×2 (08:30→21:43)
[2016-10-19] MEDS: ENOXAPARIN 40 MG/0.4 ML SYR SC SCH (08:30)
[2016-10-19] MEDS: METOPROLOL TARTRATE 25 MG TAB PO SCH ×2 (08:30→21:43)
[2016-10-19] MEDS: GABAPENTIN 100 MG CAP PO SCH ×3 (08:30→21:43)
[2016-10-19] MEDS: THIAMINE HCL 100 MG TAB PO SCH (08:30)
--- NOTE | 2016-10-19 09:35 | HOSPPROG ---
Hospitalist Progress Note Assessment/Plan: 71 yo M a delirium tremens tachycardia: intermittent SVT on po BB echo unremarkable ok to be off tele Acute alcohol withdrawal- resolved delirium: severe and prolonged i think his alcohol withdrawal has resolved and he is now just delirious hypokalemia: dc electrolyte protocol hypomag: dc electrolyte protocol acute urinary retention- rivas out continue flomax hypertension - systolic blood pressures ranging 120-150 - continue lisinopril suspected depression- likely contributing constipation: add miralax prophylaxis Lovenox diet regular disposition: inpatient to floor Subjective: urinating (actually incontinent). more alert. constipated Objective: Vital Signs Temp Pulse Resp BP Pulse Ox 36.5 C 89 20 159/88 H 99 10/19/16 08:00 10/19/16 08:30 10/19/16 08:00 10/19/16 08:30 10/19/16 08:00 Laboratory Results 10/15/16 04:30 10/19/16 03:30 10/18/16 10/19/16 10/20/16 05:59 05:59 05:59 Intake Total 1250 554 Output Total 1800 500 Balance -550 54 - Physical Exam Constitutional: no apparent distress, appears nourished Eyes: PERRL, anicteric sclera Ears, Nose, Mouth, Throat: moist mucous membranes, hearing normal Cardiovascular: regular rate and rhythym, no murmur, rub, or gallop Respiratory: no respiratory distress, no rales or rhonchi Gastrointestinal: normoactive bowel sounds, soft, non-tender abdomen Genitourinary: no bladder fullness, No rivas in urethra Skin: warm, normal color Musculoskeletal: full muscle strength Neurologic: sensation intact bilaterally, No AAOx3 Psychiatric: not anxious, No interacting appropriately ICD10 Worksheet Patient Problems: Problems Problem Status Diagnosed Alcohol withdrawal Acute PTSD (post-traumatic stress disorder) Acute Severe major depression Acute
[2016-10-19] MEDS: POLYETHYLENE GLYCOL 3350 17 GM PKT PO SCH (10:23)
[2016-10-19] MEDS: ACETAMINOPHEN 650 MG/20.3 ML UDCUP PO PRN (18:11)
[2016-10-19] MEDS: OLANZapine DISINTEGR 5 MG TAB PO SCH (21:44)
[2016-10-19] MEDS: AMITRIPTYLINE HCL 25 MG TAB PO SCH (21:44)
[2016-10-20] MEDS ORDERED: HALOPERIDOL LACT 5 MG/ML INJ IVP ONE (01:19)
[2016-10-20] MEDS ORDERED: HALOPERIDOL LACT 5 MG/ML INJ ONE (01:27)
[2016-10-20] MEDS: ENOXAPARIN 40 MG/0.4 ML SYR SC SCH (08:07)
[2016-10-20] MEDS: LISINOPRIL 40 MG TAB PO SCH (08:08)
[2016-10-20] MEDS: POLYETHYLENE GLYCOL 3350 17 GM PKT PO SCH (08:08)
[2016-10-20] MEDS: POTASSIUM CL 20 MEQ PKT PO SCH (08:09)
[2016-10-20] MEDS: LEVOTHYROXINE 25 MCG TAB PO SCH (08:10)
[2016-10-20] MEDS: METOPROLOL TARTRATE 25 MG TAB PO SCH (08:10)
[2016-10-20] MEDS: GABAPENTIN 100 MG CAP PO SCH ×2 (08:10→15:42)
[2016-10-20] MEDS: THIAMINE HCL 100 MG TAB PO SCH (08:12)
[2016-10-20] MEDS: TAMSULOSIN HCL 0.4 MG CAP PO SCH (08:12)
--- NOTE | 2016-10-20 08:32 | HOSPPROG ---
Hospitalist Progress Note Assessment/Plan: #Acute alcohol withdrawal: resolved #Acute encephalopathy -possibly Wernicke's get collateral info from . s/p high-dose thiamine #Alcohol abuse: needs counseling on cessation #Tachycardia -improved with BB; TTE WNL #Hypokalemia/hypomagnesium: resolved #Macrocytic anemia: due to Etoh #Accelerated HTN: cont Lisinopril #Deconditioning:PT/OT #BPH: Flomax #Diet: renal #DVT px:Lovenox #Disp: placement will be issue given 2-person assist. SNF vs LTAC. Talk with SW Subjective: agitated overnight. Objective: Vital Signs Temp Pulse Resp BP Pulse Ox 36.6 C 76 14 136/92 H 95 10/20/16 07:56 10/20/16 07:56 10/19/16 16:00 10/20/16 07:56 10/20/16 07:56 Laboratory Results 10/15/16 04:30 10/19/16 03:30 10/19/16 10/20/16 10/21/16 05:59 05:59 05:59 Intake Total 554 943 Output Total 500 350 Balance 54 593 - Physical Exam Constitutional: no apparent distress Eyes: PERRL Ears, Nose, Mouth, Throat: moist mucous membranes, hearing normal Cardiovascular: regular rate and rhythym, no murmur, rub, or gallop Respiratory: no respiratory distress, no rales or rhonchi Gastrointestinal: normoactive bowel sounds Genitourinary: no bladder fullness Skin: warm Musculoskeletal: other (roll belt in place) Neurologic: other (alert to self. Thinks we are in [employer] [facility]) Psychiatric: poor insight, poor judgement ICD10 Worksheet Patient Problems: Problems Problem Status Diagnosed Alcohol withdrawal Acute PTSD (post-traumatic stress disorder) Acute Severe major depression Acute
[2016-10-20] MEDS: OLANZapine DISINTEGR 5 MG TAB PO SCH (22:30)
[2016-10-21] MEDS: GABAPENTIN 100 MG CAP PO SCH ×4 (00:06→20:20)
[2016-10-21] MEDS: AMITRIPTYLINE HCL 25 MG TAB PO SCH ×2 (00:06→20:20)
[2016-10-21] MEDS: METOPROLOL TARTRATE 25 MG TAB PO SCH ×3 (00:06→20:20)
[2016-10-21] MEDS: TAMSULOSIN HCL 0.4 MG CAP PO SCH ×3 (00:07→20:20)
[2016-10-21 05:46] LABS: ANION GAP 7 mEq/L (8-16); CALCIUM 9.1 mg/dL (8.5-10.4); CARBON DIOXIDE 28 mEq/l (22-31); CHLORIDE 104 mEq/L (97-110); CREATININE 0.7 mg/dL (0.7-1.3); GLOMERULAR FILTRATION RATE > 60; GLUCOSE 86 mg/dL (70-100); POTASSIUM 3.9 mEq/L (3.5-5.2); SODIUM 139 mEq/L (134-144)
[2016-10-21] MEDS: ENOXAPARIN 40 MG/0.4 ML SYR SC SCH (08:25)
[2016-10-21] MEDS: LEVOTHYROXINE 25 MCG TAB PO SCH (08:25)
[2016-10-21] MEDS: THIAMINE HCL 100 MG TAB PO SCH (08:25)
[2016-10-21] MEDS: POLYETHYLENE GLYCOL 3350 17 GM PKT PO SCH (08:25)
[2016-10-21] MEDS: POTASSIUM CL 20 MEQ PKT PO SCH (08:26)
[2016-10-21] MEDS: LISINOPRIL 40 MG TAB PO SCH (08:26)
--- NOTE | 2016-10-21 10:26 | HOSPPROG ---
Hospitalist Progress Note Assessment/Plan: #Acute alcohol withdrawal: resolved #Acute encephalopathy -possibly Wernicke's.s/p high-dose thiamine -TSH normal. Check b12. Tried calling for collateral; left message. #Agitation -add Zyprexa 2.5mg daily, 5mg qhs #Alcohol abuse: needs counseling on cessation #Tachycardia -improved with BB; TTE WNL #Hypokalemia/hypomagnesium: resolved #Macrocytic anemia: due to Etoh #Accelerated HTN: cont Lisinopril #Deconditioning:PT/OT #BPH: Flomax #Diet: renal #DVT px:Lovenox #Disp: placement will be issue given 2-person assist. SNF vs LTAC. Objective: Vital Signs Temp Pulse Resp BP Pulse Ox 36.4 C 75 16 165/100 H 92 10/21/16 07:43 10/21/16 07:43 10/21/16 07:43 10/21/16 07:43 10/21/16 07:43 Laboratory Results 10/15/16 04:30 10/21/16 05:10 10/20/16 10/21/16 10/22/16 05:59 05:59 05:59 Intake Total 943 750 Output Total 350 Balance 593 750 - Physical Exam Constitutional: no apparent distress Eyes: PERRL Ears, Nose, Mouth, Throat: moist mucous membranes Cardiovascular: regular rate and rhythym Respiratory: no respiratory distress Gastrointestinal: normoactive bowel sounds Genitourinary: no bladder fullness Musculoskeletal: generalized weakness Neurologic: other (alert to self) Psychiatric: flat affect, other (tangential) ICD10 Worksheet Patient Problems: Problems Problem Status Diagnosed Alcohol withdrawal Acute PTSD (post-traumatic stress disorder) Acute Severe major depression Acute
[2016-10-21] MEDS: OLANZapine 2.5 MG TAB PO SCH (12:46)
[2016-10-21] MEDS: OLANZapine DISINTEGR 5 MG TAB PO SCH (20:21)
[2016-10-22 05:50] LABS: ANION GAP 11 mEq/L (8-16); CALCIUM 9.7 mg/dL (8.5-10.4); CARBON DIOXIDE 29 mEq/l (22-31); CHLORIDE 105 mEq/L (97-110); CREATININE 0.7 mg/dL (0.7-1.3); GLOMERULAR FILTRATION RATE > 60; GLUCOSE 89 mg/dL (70-100); POTASSIUM 4.6 mEq/L (3.5-5.2); SODIUM 145 mEq/L (134-144)
[2016-10-22] MEDS: LISINOPRIL 40 MG TAB PO SCH (09:25)
[2016-10-22] MEDS: THIAMINE HCL 100 MG TAB PO SCH (09:25)
[2016-10-22] MEDS: OLANZapine 2.5 MG TAB PO SCH (09:25)
[2016-10-22] MEDS: METOPROLOL TARTRATE 25 MG TAB PO SCH ×2 (09:25→21:50)
[2016-10-22] MEDS: ENOXAPARIN 40 MG/0.4 ML SYR SC SCH (09:28)
[2016-10-22] MEDS: LEVOTHYROXINE 25 MCG TAB PO SCH (09:28)
[2016-10-22] MEDS: GABAPENTIN 100 MG CAP PO SCH ×3 (09:28→21:50)
[2016-10-22] MEDS: TAMSULOSIN HCL 0.4 MG CAP PO SCH ×2 (09:28→21:51)
[2016-10-22] MEDS: POLYETHYLENE GLYCOL 3350 17 GM PKT PO SCH (09:51)
[2016-10-22] MEDS: POTASSIUM CL 20 MEQ PKT PO SCH (09:51)
--- NOTE | 2016-10-22 12:51 | HOSPPROG ---
Hospitalist Progress Note Assessment/Plan: #Acute alcohol withdrawal: resolved #Acute on suspected chronic encephalopathy -possibly Wernicke's.s/p high-dose thiamine -TSH/B12 normal. -spoke with , he has not been mentally clear since Xmas, but coordination now improved. He has had similar confusion during prior hospitalization #Agitation -improved. Zyprexa 5mg BID #Alcohol abuse: needs counseling on cessation #Tachycardia -improved with BB; TTE WNL #Hypokalemia/hypomagnesium: resolved #Macrocytic anemia: due to Etoh #Accelerated HTN: cont Lisinopril #Deconditioning:PT/OT. Still requiring 24/7 care at this point #BPH: Flomax #Diet: renal #DVT px:Lovenox #Disp: SW is assisting with placement options. Subjective: patient not sleeping at night. Objective: Vital Signs Temp Pulse Resp BP Pulse Ox 36.3 C 78 14 150/99 H 97 10/22/16 07:47 10/22/16 07:47 10/22/16 07:47 10/22/16 07:47 10/22/16 07:47 Laboratory Results 10/15/16 04:30 10/22/16 05:15 10/21/16 10/22/16 10/23/16 05:59 05:59 05:59 Intake Total 750 650 Balance 750 650 - Physical Exam Constitutional: no apparent distress Eyes: PERRL Ears, Nose, Mouth, Throat: moist mucous membranes, hearing normal Cardiovascular: regular rate and rhythym Respiratory: no respiratory distress Gastrointestinal: normoactive bowel sounds Genitourinary: no bladder fullness Neurologic: AAOx3 (alert to self only. Follows commands) ICD10 Worksheet Patient Problems: Problems Problem Status Diagnosed Alcohol withdrawal Acute PTSD (post-traumatic stress disorder) Acute Severe major depression Acute
[2016-10-22 15:42] LABS: COLOR YELLOW; LEUKOCYTE ESTERASE,URINE NEGATIVE (NEGATIVE); NITRITE,URINE NEGATIVE (NEGATIVE)
[2016-10-22] MEDS: OLANZapine DISINTEGR 5 MG TAB PO SCH (21:50)
[2016-10-22] MEDS: AMITRIPTYLINE HCL 25 MG TAB PO SCH (21:51)
[2016-10-23 06:44] LABS: ANION GAP 13 mEq/L (8-16); CALCIUM 9.7 mg/dL (8.5-10.4); CARBON DIOXIDE 27 mEq/l (22-31); CHLORIDE 107 mEq/L (97-110); CREATININE 0.8 mg/dL (0.7-1.3); GLOMERULAR FILTRATION RATE > 60; GLUCOSE 77 mg/dL (70-100); POTASSIUM 4.2 mEq/L (3.5-5.2); SODIUM 147 mEq/L (134-144)
[2016-10-23] MEDS: THIAMINE HCL 100 MG TAB PO SCH (07:59)
[2016-10-23] MEDS: TAMSULOSIN HCL 0.4 MG CAP PO SCH ×2 (07:59→21:54)
[2016-10-23] MEDS: LISINOPRIL 40 MG TAB PO SCH (07:59)
[2016-10-23] MEDS: POTASSIUM CL 20 MEQ PKT PO SCH (07:59)
[2016-10-23] MEDS: ENOXAPARIN 40 MG/0.4 ML SYR SC SCH (07:59)
[2016-10-23] MEDS: GABAPENTIN 100 MG CAP PO SCH ×3 (07:59→21:54)
[2016-10-23] MEDS: OLANZapine DISINTEGR 5 MG TAB PO SCH ×2 (08:01→21:54)
[2016-10-23] MEDS: METOPROLOL TARTRATE 25 MG TAB PO SCH ×2 (08:01→21:54)
[2016-10-23] MEDS: POLYETHYLENE GLYCOL 3350 17 GM PKT PO SCH (08:07)
[2016-10-23] MEDS: LEVOTHYROXINE 25 MCG TAB PO SCH (11:15)
--- NOTE | 2016-10-23 15:33 | HOSPPROG ---
Hospitalist Progress Note Assessment/Plan: #Acute alcohol withdrawal: resolved #Acute on suspected chronic encephalopathy -possibly Wernicke's.s/p high-dose thiamine -TSH/B12 normal. UA negative -spoke with , he has not been mentally clear since Xmas, but coordination now improved. He has had similar confusion during prior hospitalization #Agitation -improved. Zyprexa 5mg BID #Severe protein caloric malnutrition: underweight with BMI 16. Nutrition consult #Alcohol abuse: needs counseling on cessation #Tachycardia -improved with BB; TTE WNL #Hypokalemia/hypomagnesium: resolved #Macrocytic anemia: due to Etoh #Accelerated HTN: cont Lisinopril #Deconditioning:PT/OT. Still requiring 24/7 care at this point #BPH: Flomax #Diet: renal #DVT px:Lovenox #Disp: SW is assisting with placement options. Subjective: no acute events Objective: Vital Signs Temp Pulse Resp BP Pulse Ox 36.5 C 76 18 148/90 H 100 10/23/16 08:14 10/23/16 08:14 10/23/16 08:14 10/23/16 08:14 10/23/16 08:14 Laboratory Results 10/15/16 04:30 10/23/16 06:00 10/22/16 10/23/16 10/24/16 05:59 05:59 05:59 Intake Total 650 450 480 Output Total 575 250 Balance 650 -125 230 - Physical Exam Constitutional: no apparent distress Eyes: PERRL Ears, Nose, Mouth, Throat: moist mucous membranes Cardiovascular: regular rate and rhythym Respiratory: no respiratory distress Gastrointestinal: normoactive bowel sounds, soft, non-tender abdomen Genitourinary: no bladder fullness Musculoskeletal: full muscle strength ICD10 Worksheet Patient Problems: Problems Problem Status Diagnosed Alcohol withdrawal Acute PTSD (post-traumatic stress disorder) Acute Severe major depression Acute
[2016-10-23] MEDS: AMITRIPTYLINE HCL 25 MG TAB PO SCH (21:54)
[2016-10-24] MEDS: POTASSIUM CL 20 MEQ PKT PO SCH (09:30)
[2016-10-24] MEDS: POLYETHYLENE GLYCOL 3350 17 GM PKT PO SCH (09:31)
[2016-10-24] MEDS: METOPROLOL TARTRATE 25 MG TAB PO SCH ×2 (09:32→21:11)
[2016-10-24] MEDS: THIAMINE HCL 100 MG TAB PO SCH (09:32)
[2016-10-24] MEDS: LISINOPRIL 40 MG TAB PO SCH (09:32)
[2016-10-24] MEDS: LEVOTHYROXINE 25 MCG TAB PO SCH (09:32)
[2016-10-24] MEDS: GABAPENTIN 100 MG CAP PO SCH ×3 (09:33→21:11)
[2016-10-24] MEDS: TAMSULOSIN HCL 0.4 MG CAP PO SCH ×2 (09:33→21:11)
[2016-10-24] MEDS: ENOXAPARIN 40 MG/0.4 ML SYR SC SCH (09:34)
[2016-10-24] MEDS: OLANZapine DISINTEGR 5 MG TAB PO SCH ×2 (10:30→21:11)
--- NOTE | 2016-10-24 14:21 | HOSPPROG ---
Hospitalist Progress Note Assessment/Plan: #Acute alcohol withdrawal: resolved #Acute on suspected chronic encephalopathy -possibly Wernicke's.s/p high-dose thiamine -TSH/B12 normal. UA negative -spoke with , he has not been mentally clear since Xmas, but coordination now improved. He has had similar confusion during prior hospitalization -he will very likely be slow to recover or this may be new baseline #Agitation -improved. Zyprexa 5mg BID #Severe protein caloric malnutrition: underweight with BMI 16. Nutrition consult #Alcohol abuse: needs counseling on cessation #Tachycardia -improved with BB; TTE WNL #Hypokalemia/hypomagnesium: resolved #Macrocytic anemia: due to Etoh #Accelerated HTN: cont Lisinopril #Deconditioning:PT/OT. Still requiring 24/7 care at this point #BPH: Flomax #Diet: renal #DVT px:Lovenox #Disp: filing for divorce, but supportive of him and working with for placement options Subjective: no acute events Objective: Vital Signs Temp Pulse Resp BP Pulse Ox 36.3 C 80 16 140/93 H 98 10/24/16 07:30 10/24/16 07:30 10/24/16 07:30 10/24/16 07:30 10/24/16 07:30 Laboratory Results 10/15/16 04:30 10/23/16 06:00 10/23/16 10/24/16 10/25/16 05:59 05:59 05:59 Intake Total 450 1200 200 Output Total 575 450 Balance -125 750 200 - Physical Exam Constitutional: no apparent distress, cachectic Eyes: PERRL Ears, Nose, Mouth, Throat: moist mucous membranes Cardiovascular: regular rate and rhythym Respiratory: no respiratory distress Gastrointestinal: normoactive bowel sounds Genitourinary: no bladder fullness Skin: warm Musculoskeletal: generalized weakness Neurologic: other (alert to self only) ICD10 Worksheet Patient Problems: Problems Problem Status Diagnosed Alcohol withdrawal Acute PTSD (post-traumatic stress disorder) Acute Severe major depression Acute
[2016-10-24] MEDS: AMITRIPTYLINE HCL 25 MG TAB PO SCH (21:11)
[2016-10-25] MEDS: METOPROLOL TARTRATE 25 MG TAB PO SCH ×2 (08:27→23:30)
[2016-10-25] MEDS: OLANZapine DISINTEGR 5 MG TAB PO SCH ×2 (08:28→23:31)
[2016-10-25] MEDS: THIAMINE HCL 100 MG TAB PO SCH (08:28)
[2016-10-25] MEDS: LEVOTHYROXINE 25 MCG TAB PO SCH (08:28)
[2016-10-25] MEDS: GABAPENTIN 100 MG CAP PO SCH ×3 (08:28→23:31)
[2016-10-25] MEDS: TAMSULOSIN HCL 0.4 MG CAP PO SCH ×2 (08:28→23:31)
[2016-10-25] MEDS: LISINOPRIL 40 MG TAB PO SCH (08:28)
[2016-10-25] MEDS: ENOXAPARIN 40 MG/0.4 ML SYR SC SCH (08:28)
[2016-10-25] MEDS: POTASSIUM CL 20 MEQ PKT PO SCH (08:29)
[2016-10-25] MEDS: POLYETHYLENE GLYCOL 3350 17 GM PKT PO SCH (08:29)
--- NOTE | 2016-10-25 09:57 | HOSPPROG ---
Hospitalist Progress Note Assessment/Plan: Patient is 71-year-old male with history significant for alcoholism. Has been bingeing significantly prior to his admission. His has filed for divorce. On admission he was admitted to suicidal thoughts. At that time his placed in the intensive care unit. Today is my 1st encounter with the patient. Chart reviewed. #Acute alcohol withdrawal: resolved #Acute on suspected chronic encephalopathy/concern for dementia -most likely Wernicke's - s/p high-dose thiamine/ Will continue on oral dose thiamine - patient has 2 out of the 3 classic triad for Wernicke's /ataxia with associated encephalopathy (nystagmus is not present) -TSH/B12 normal. UA negative -likely new baseline -check ammonia level #Agitation/frequent pacing -Zyprexa 5mg BID # elevated d dimer -CTA done during hospitalization is negative for a PE #Severe protein caloric malnutrition: underweight with BMI 16. Nutrition consult #Alcohol abuse: -causing the above -patient is too confused to talk about this #Tachycardia -resolved -improved with BB #elevated LFT's -resolved #Hypokalemia/hypomagnesium: resolved #Macrocytic anemia: due to Etoh # HTN: cont Lisinopril #Deconditioning: * PT/OT. Still requiring 24/7 care at this point #BPH: Flomax #Diet: renal #DVT px:Lovenox #Disp:pending/ CM looking into placement #Plan: check chemistry panel and ammonia level Subjective: Volodymyr is pacing, no c/o pain. Objective: Vital Signs Temp Pulse Resp BP Pulse Ox 36.4 C 74 18 113/77 94 10/25/16 07:04 10/25/16 07:04 10/25/16 07:04 10/25/16 07:04 10/25/16 07:04 Microbiology 10/22/16 14:30 Urine Culture - Final Urine,Catheterized Enterococcus Faecalis Laboratory Results 10/15/16 04:30 10/23/16 06:00 10/24/16 10/25/16 10/26/16 05:59 05:59 05:59 Intake Total 1200 794 Output Total 450 Balance 750 794 - Physical Exam Constitutional: not in pain, chronically ill appearing, cachectic Eyes: PERRL Ears, Nose, Mouth, Throat: dry mucous membranes Respiratory: no respiratory distress Skin: warm Musculoskeletal: full muscle strength Neurologic: other (oriented only to himself) Psychiatric: encephalopathic, poor insight, poor judgement, poor memory ICD10 Worksheet Patient Problems: Problems Problem Status Diagnosed Alcohol withdrawal Acute PTSD (post-traumatic stress disorder) Acute Severe major depression Acute
[2016-10-25 11:33] LABS: ANION GAP 17 mEq/L (8-16); CALCIUM 10.8 mg/dL (8.5-10.4); CARBON DIOXIDE 25 mEq/l (22-31); CHLORIDE 107 mEq/L (97-110); GLOMERULAR FILTRATION RATE 46; GLUCOSE 173 mg/dL (70-100); POTASSIUM 5.1 mEq/L (3.5-5.2); SODIUM 149 mEq/L (134-144)
[2016-10-25 11:48] LABS: CREATININE 1.5 mg/dL (0.7-1.3)
[2016-10-25] MEDS ORDERED: NS 500 ML IV ONE (15:20)
[2016-10-25] MEDS ORDERED: 1/2 NS 1,000 ML IV SCH (15:30)
[2016-10-25] MEDS: ACETAMINOPHEN 650 MG/20.3 ML UDCUP PO PRN (23:31)
[2016-10-25] MEDS: AMITRIPTYLINE HCL 25 MG TAB PO SCH (23:31)
[2016-10-26 05:34] LABS: ANION GAP 11 mEq/L (8-16); CALCIUM 9.7 mg/dL (8.5-10.4); CARBON DIOXIDE 23 mEq/l (22-31); CHLORIDE 109 mEq/L (97-110); CREATININE 1.9 mg/dL (0.7-1.3); GLOMERULAR FILTRATION RATE 35; GLUCOSE 75 mg/dL (70-100); POTASSIUM 4.4 mEq/L (3.5-5.2); SODIUM 143 mEq/L (134-144)
[2016-10-26] MEDS: TAMSULOSIN HCL 0.4 MG CAP PO SCH ×2 (08:26→21:03)
[2016-10-26] MEDS: GABAPENTIN 100 MG CAP PO SCH ×3 (08:26→21:03)
[2016-10-26] MEDS: METOPROLOL TARTRATE 25 MG TAB PO SCH ×2 (08:26→21:14)
[2016-10-26] MEDS: THIAMINE HCL 100 MG TAB PO SCH (08:26)
[2016-10-26] MEDS: OLANZapine DISINTEGR 5 MG TAB PO SCH ×2 (08:32→21:03)
[2016-10-26] MEDS: POLYETHYLENE GLYCOL 3350 17 GM PKT PO SCH (08:38)
--- NOTE | 2016-10-26 09:42 | HOSPPROG ---
Hospitalist Progress Note Assessment/Plan: Patient is 71-year-old male with history significant for alcoholism. Had been bingeing significantly prior to his admission. His has filed for divorce. On admission he was admitted to suicidal thoughts. At that time his placed in the intensive care unit. Today is my 1st encounter with the patient. Chart reviewed. #Acute alcohol withdrawal: resolved #Acute on suspected chronic encephalopathy/concern for dementia -most likely Wernicke's -s/p high-dose thiamine/ Will continue on oral dose thiamine - patient has 2 out of the 3 classic triad for Wernicke's /ataxia with associated encephalopathy (nystagmus is not present) -TSH/B12 normal. UA negative. Ammonia level stable. -likely new baseline #acute renal insufficiency -patient appears clinically dry -hold ACEI and any nephrotoxic medications -Normal saline -recheck labs in a.m. #Hypernatremia -resolved with giving fluids yesterday #Agitation/frequent pacing -Zyprexa 5mg BID # elevated d dimer -CTA done during hospitalization is negative for a PE #Severe protein caloric malnutrition: underweight with BMI 16. #Alcohol abuse: -causing the above -patient is too confused to talk about this #Tachycardia -resolved -improved with BB #elevated LFT's -resolved #Hypokalemia/hypomagnesium: resolved #Macrocytic anemia: due to Etoh # HTN: holding Lisinopril due to renal insuff/ will place on Norvasc #Deconditioning: * PT/OT. Still requiring 24/7 care at this point #BPH: Flomax #Diet: renal #DVT px: changed to heparin tid #Disp:pending/ CM looking into placement #Plan: check chemistry panel in a.m. Subjective: Volodymyr has no complaints. Objective: Vital Signs Temp Pulse Resp BP Pulse Ox 36.4 C 80 16 140/78 H 99 10/26/16 08:00 10/26/16 08:26 10/26/16 08:00 10/26/16 08:26 10/26/16 08:00 Microbiology 10/22/16 14:30 Urine Culture - Final Urine,Catheterized Enterococcus Faecalis Laboratory Results 10/15/16 04:30 10/26/16 05:07 10/25/16 10/26/16 10/27/16 05:59 05:59 05:59 Intake Total 794 1700 200 Output Total 250 Balance 794 1700 -50 - Physical Exam Constitutional: not in pain, chronically ill appearing, cachectic Eyes: PERRL Ears, Nose, Mouth, Throat: hearing normal Cardiovascular: no murmur, rub, or gallop Respiratory: no respiratory distress Gastrointestinal: normoactive bowel sounds Skin: warm Musculoskeletal: abnormal gait, generalized weakness Neurologic: other (oriented only to himself and his 's name) Psychiatric: encephalopathic, poor insight, poor judgement, poor memory, No thought process linear ICD10 Worksheet Patient Problems: Problems Problem Status Diagnosed Alcohol withdrawal Acute PTSD (post-traumatic stress disorder) Acute Severe major depression Acute
[2016-10-26] MEDS: LEVOTHYROXINE 25 MCG TAB PO SCH (09:45)
[2016-10-26] MEDS: NS 1,000 ML IV SCH ×2 (09:49→18:11)
[2016-10-26] MEDS: HEPARIN 5,000 UNIT/0.5 ML SYR SC SCH ×2 (15:23→23:49)
[2016-10-26] MEDS: OLANZapine 2.5 MG TAB PO PRN (16:23)
[2016-10-26] MEDS: AMITRIPTYLINE HCL 25 MG TAB PO SCH (21:03)
[2016-10-27] MEDS: HEPARIN 5,000 UNIT/0.5 ML SYR SC SCH ×3 (00:02→15:15)
[2016-10-27 05:51] LABS: ANION GAP 8 mEq/L (8-16); CALCIUM 9.3 mg/dL (8.5-10.4); CARBON DIOXIDE 24 mEq/l (22-31); CHLORIDE 110 mEq/L (97-110); CREATININE 0.9 mg/dL (0.7-1.3); GLOMERULAR FILTRATION RATE > 60; GLUCOSE 78 mg/dL (70-100); POTASSIUM 4.5 mEq/L (3.5-5.2); SODIUM 142 mEq/L (134-144)
[2016-10-27] MEDS: METOPROLOL TARTRATE 25 MG TAB PO SCH ×2 (08:20→20:08)
[2016-10-27] MEDS: TAMSULOSIN HCL 0.4 MG CAP PO SCH ×2 (08:20→20:07)
[2016-10-27] MEDS: OLANZapine DISINTEGR 5 MG TAB PO SCH ×2 (08:22→20:07)
[2016-10-27] MEDS: GABAPENTIN 100 MG CAP PO SCH ×3 (08:22→21:03)
[2016-10-27] MEDS: THIAMINE HCL 100 MG TAB PO SCH (08:22)
[2016-10-27] MEDS: POLYETHYLENE GLYCOL 3350 17 GM PKT PO SCH (08:29)
[2016-10-27] MEDS: LEVOTHYROXINE 25 MCG TAB PO SCH (09:30)
--- NOTE | 2016-10-27 14:34 | HOSPPROG ---
Hospitalist Progress Note Assessment/Plan: Hospitalist Progress Note Assessment/Plan: Patient is 71-year-old male with history significant for alcoholism. Had been bingeing significantly prior to his admission. His has filed for divorce. On admission he was admitted to suicidal thoughts. At that time his placed in the intensive care unit. Today is my 1st encounter with the patient. Chart reviewed. #Acute alcohol withdrawal: resolved #Acute on suspected chronic encephalopathy/concern for dementia -most likely Wernicke's -s/p high-dose thiamine/ Will continue on oral dose thiamine - patient has 2 out of the 3 classic triad for Wernicke's /ataxia with associated encephalopathy (nystagmus is not present) -TSH/B12 normal. UA negative. Ammonia level stable. -likely new baseline -prn Zyprexa 2.5 mg bid/ patient has done well, calms him, but doesn't sedate him too much. -Palliative Care to evaluate him and discuss w his code status #acute renal insufficiency -better -hold ACEI and any nephrotoxic medications #Hypernatremia -resolved with giving fluids yesterday #Agitation/frequent pacing -Zyprexa 5mg BID # elevated d dimer -CTA done during hospitalization is negative for a PE #Severe protein caloric malnutrition: underweight with BMI 16. #Alcohol abuse: -causing the above -patient is too confused to talk about this #Tachycardia -resolved -improved with BB #elevated LFT's -resolved #Hypokalemia/hypomagnesium: resolved #Macrocytic anemia: due to Etoh # HTN: holding Lisinopril due to renal insuff/ will place on Norvasc #Deconditioning: * PT/OT. Still requiring 24/7 care at this point #BPH: Flomax #Diet: renal #DVT px: changed to heparin tid #Disp:pending/ CM looking into placement Subjective: Pt up ambulating in the hallway. COnfused. Wants to leave. Objective: Vital Signs Temp Pulse Resp BP Pulse Ox 36.6 C 79 16 125/99 H 94 10/27/16 07:53 10/27/16 07:53 10/27/16 07:53 10/27/16 07:53 10/27/16 07:53 Laboratory Results 10/15/16 04:30 10/27/16 04:57 10/26/16 10/27/16 10/28/16 05:59 05:59 05:59 Intake Total 1700 1851 Output Total 1450 Balance 1700 401 - Physical Exam Constitutional: not in pain, chronically ill appearing, cachectic Eyes: PERRL, anicteric sclera, EOMI Ears, Nose, Mouth, Throat: moist mucous membranes, hearing normal, ears appear normal Cardiovascular: regular rate and rhythym, No JVD, No edema Respiratory: no respiratory distress, no rales or rhonchi, reduced air movement Gastrointestinal: No tenderness, No ascites, No guarding Skin: warm, normal color, No erythema Musculoskeletal: no joint effusions, abnormal gait, generalized weakness Neurologic: No AAOx3 Psychiatric: poor insight, poor judgement, poor memory, No interacting appropriately, No thought process linear ICD10 Worksheet Patient Problems: Problems Problem Status Diagnosed Alcohol withdrawal Acute PTSD (post-traumatic stress disorder) Acute Severe major depression Acute
[2016-10-27] MEDS: OLANZapine 2.5 MG TAB PO PRN (15:43)
[2016-10-27] MEDS: AMITRIPTYLINE HCL 25 MG TAB PO SCH (20:07)
[2016-10-28 01:08] VITALS: RESP 16
[2016-10-28] MEDS: OLANZapine 2.5 MG TAB PO PRN ×2 (02:50→10:28)
[2016-10-28] MEDS: METOPROLOL TARTRATE 25 MG TAB PO SCH (08:52)
[2016-10-28] MEDS: TAMSULOSIN HCL 0.4 MG CAP PO SCH (08:57)
[2016-10-28] MEDS: OLANZapine DISINTEGR 5 MG TAB PO SCH (08:57)
[2016-10-28] MEDS: GABAPENTIN 100 MG CAP PO SCH ×2 (08:57→15:02)
[2016-10-28] MEDS: THIAMINE HCL 100 MG TAB PO SCH (08:57)
[2016-10-28] MEDS: POLYETHYLENE GLYCOL 3350 17 GM PKT PO SCH (08:58)
[2016-10-28] MEDS: LEVOTHYROXINE 25 MCG TAB PO SCH (08:59)
--- NOTE | 2016-10-28 10:28 | PDIAF ---
- Diagnosis Diagnosis: ams Code Status: Full Code - Medication Management Discharge Medications: Medications to Continue on Transfer Ibuprofen [Motrin (*)] 200 mg PO Q8 PRN 12/18/15 [Last Taken Unknown] Lisinopril [Zestril 40 mg (*)] 40 mg PO DAILY 12/18/15 [Last Taken 12/18/15] Amitriptyline HCl [Elavil 50 mg (*)] 25 mg PO HS #30 tab 12/23/15 [Last Taken Unknown] Levothyroxine [Synthroid 25 mcg (*)] 25 mcg PO DAILY10 #30 tab 12/23/15 [Last Taken Unknown] Tetrahydrozoline 0.05% [Visine (*)] 1 drops OP PRN PRN #0 opht.btl 12/23/15 [ Last Taken Unknown] Docusate Sodium [Colace 100 MG (*)] 100 mg PO DAILY PRN 10/09/16 [Last Taken Unknown] Gabapentin [Neurontin 100 MG (*)] 100 mg PO TID 10/09/16 [Last Taken Unknown] Herbals/Supplements -Info Only 1 ea PO AD 10/09/16 [Last Taken Unknown] Acetaminophen [Tylenol 650/20.3ML Oral Liq (*)] 650 mg PO Q6H PRN #0 udcup 10/28 [Last Taken Unknown] Metoprolol Tartrate [Lopressor 25 mg (*)] 12.5 mg PO BID #0 tab 10/28/16 [Last Taken Unknown] OLANZapine DISINTEGR [ZyPREXA ZYDIS (*)] 5 mg PO DAILY #0 tab 10/28/16 [Last Taken Unknown] OLANZapine DISINTEGR [ZyPREXA ZYDIS (*)] 5 mg PO HS #0 tab 10/28/16 [Last Taken Unknown] OLANZapine [ZyPREXA 2.5 mg (*)] 2.5 mg PO BID PRN #0 tab 10/28/16 [Last Taken Unknown] Polyethylene Glycol 3350 [Miralax 17 gm (*)] 17 gm PO DAILY #0 pkt 10/28/16 [ Last Taken Unknown] Potassium Chloride Po [Klor Packets 20 meq (*)] 20 meq PO DAILY #0 pkt 10/28/16 [Last Taken Unknown] Tamsulosin HCl [Flomax 0.4 MG (*)] 0.4 mg PO BID #0 cap 10/28/16 [Last Taken Unknown] Thiamine HCl [Vitamin B-1] 100 mg PO DAILY #0 tab 10/28/16 [Last Taken Unknown] amLODIPine BESYLATE [Norvasc 2.5 mg (*)] 2.5 mg PO DAILY #0 tab 10/28/16 [Last Taken Unknown] Discharge Medications: Refer to the Discharge Home Medication list for PRN reason. PICC Care - Routine: N/A - Orders Services needed: Registered Nurse, Physical Therapy, Occupational Therapy Diet Texture: Dysphagia 3 - Advanced - Moist, Bite-Size, Thin Liquids, Meds Whole w/Liquids - Follow Up Care Current Providers and Referrals: Prince Vargas DO [Primary Care Provider] - As per Instructions
--- NOTE | 2016-10-28 15:07 | HOSPPROG ---
Hospitalist Progress Note Assessment/Plan: Hospitalist Progress Note Assessment/Plan: Patient is 71-year-old male with history significant for alcoholism. Had been bingeing significantly prior to his admission. His has filed for divorce. On admission he was admitted to suicidal thoughts. At that time his placed in the intensive care unit. #Acute alcohol withdrawal: resolved #Acute on suspected chronic encephalopathy/concern for dementia -most likely Wernicke's -s/p high-dose thiamine/ Will continue on oral dose thiamine - patient has 2 out of the 3 classic triad for Wernicke's /ataxia with associated encephalopathy (nystagmus is not present) -TSH/B12 normal. UA negative. Ammonia level stable. -likely new baseline -prn Zyprexa 2.5 mg bid/ patient has done well, calms him, but doesn't sedate him too much. -Palliative Care to evaluate him and discuss w his code status #acute renal insufficiency -better -hold ACEI and any nephrotoxic medications #Hypernatremia -resolved with giving fluids yesterday #Agitation/frequent pacing -Zyprexa 5mg BID # elevated d dimer -CTA done during hospitalization is negative for a PE #Severe protein caloric malnutrition: underweight with BMI 16. #Alcohol abuse: -causing the above -patient is too confused to talk about this #Tachycardia -resolved -improved with BB #elevated LFT's -resolved #Hypokalemia/hypomagnesium: resolved #Macrocytic anemia: due to Etoh # HTN: holding Lisinopril due to renal insuff/ will place on Norvasc #Deconditioning: * PT/OT. Still requiring 24/7 care at this point #BPH: Flomax #Diet: renal #DVT px: changed to heparin tid #Disp:Pt was discharged. appealing. D/W CM. Await process. Subjective: Up walking. Anxious. No pain. Objective: Vital Signs Temp Pulse Resp BP Pulse Ox 36.3 C 85 16 120/65 94 10/28/16 07:27 10/28/16 08:52 10/28/16 07:27 10/28/16 08:57 10/28/16 07:27 Laboratory Results 10/15/16 04:30 10/27/16 04:57 10/27/16 10/28/16 10/29/16 05:59 05:59 05:59 Intake Total 1851 1350 Output Total 1450 Balance 401 1350 - Physical Exam Constitutional: chronically ill appearing, unkempt Eyes: PERRL, anicteric sclera Ears, Nose, Mouth, Throat: moist mucous membranes, hearing normal Cardiovascular: No JVD, No tachycardia Respiratory: no respiratory distress, reduced air movement Gastrointestinal: No tenderness, No ascites Skin: warm, normal color Musculoskeletal: no joint effusions, generalized weakness Neurologic: No AAOx3 Psychiatric: encephalopathic, poor insight, poor judgement, poor memory, No thought process linear ICD10 Worksheet Patient Problems: Problems Problem Status Diagnosed Alcohol withdrawal Acute PTSD (post-traumatic stress disorder) Acute Severe major depression Acute
[2016-10-28 15:10] VITALS: BP 139/80; PULSE 84; TEMP 98.3; O2SAT 95
--- NOTE | 2016-10-28 17:01 | GDS ---
[f rep st] DISCHARGE SUMMARY DISCHARGE DIAGNOSES: 1. Acute alcohol withdrawal. 2. Acute encephalopathy. 3. Acute renal insufficiency. 4. Hyponatremia. 5. Agitation. 6. Severe calorie malnutrition. 7. Chronic alcohol abuse. 8. Tachycardia. 9. Electrolyte abnormalities. 10. Microcytic anemia. 11. Hypertension. 12. Deconditioning. HOSPITAL COURSE: The patient is a 71-year-old male who [facility] He was evaluated and diagnosed with: 1. Severe alcohol withdrawal. He has been treated with supportive management during this hospitaliz ation, and his withdrawal symptoms have resolved. 2. Acute encephalopathy. This is likely secondary to the patient's excessive alcohol consumption. It is likely that he suffers from Wernicke's and requires significant outpatient management. 3. Acute renal insufficiency. This has improved with hydration and discontinuation of nephrotoxic m edications. 4. Hyponatremia. This has resolved with IV fluids. 5. Agitation. The patient has responded appropriately to Zyprexa and is not agitated currently. 6. Severe protein-calorie malnutrition. We will continue supportive replacement. 7. Chronic alcohol abuse. The patient will be admitted to an inpatient facility. 8. Tachycardia. This has resolved. 9. Electrolyte abnormalities. These have been replaced. 10. Chronic microcytic anemia. This is secondary to the patient's alcohol consumption. DISPOSITION: The patient will be discharged to inpatient correction facility with a locked unit given his complications. His is in agreement with this plan. I have discussed this dispositio n with Case Management. DISCHARGE MEDICATIONS: Please refer to EMR form. I spent greater than 35 minutes in the care, coordination, and management of this patient's dispositi on. /[id number]/MODL
== END 2016-10-28 16:40 | DRG 896 ==
LOC: F2N 12:59 → F3N 10-23 23:00
PROVIDERS: ADMIT Internal Medicine; ATTEND Internal Medicine
DX: F10.230 Alcohol dependence with withdrawal, uncomplicated (principal); G31.2 Degeneration of nervous system due to alcohol; E43 Unspecified severe protein-calorie malnutrition; E87.1 Hypo-osmolality and hyponatremia; Z68.1 Body mass index [BMI] 19.9 or less, adult; E83.42 Hypomagnesemia; K59.00 Constipation, unspecified; N28.9 Disorder of kidney and ureter, unspecified; R00.0 Tachycardia, unspecified; D50.9 Iron deficiency anemia, unspecified; I10 Essential (primary) hypertension; B19.20 Unspecified viral hepatitis C without hepatic coma; N40.1 Benign prostatic hyperplasia with lower urinary tract symptoms; R33.9 Retention of urine, unspecified; Z72.0 Tobacco use
CPT/HCPCS: 80305; 82607-90; 92507-GN; 92523-GN; 92526-GN; 92610-GN; 96374; 97116-GP; 97162-GP; 97166-GO; 97530-GO; 97530-GP; 97535-GO; G0480; G8978-GP-CJ; G8978-GP-CL; G8979-GP-CI; G8980-GP-CI; G8987-GO-CK; G8987-GO-CM; G8988-GO-CJ; G8988-GO-CK; G8996-GN-CL; G8997-GN-CJ; G9162-GN-CL; G9163-GN-CJ; G9164-GN-CL; G9165-GN-CL; G9166-GN-CJ; J1650; J3411; J3475; Q9967

== ENCOUNTER 2016-11-16 12:01 | Emergency (ER) | payer OTHER ==
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
[2016-11-16 12:33] VITALS: TEMP 98.4; O2SAT 94
[2016-11-16 14:46] VITALS: BP 132/79; PULSE 79; RESP 16
== END 2016-11-16 15:23 | disposition home or self-care (01) ==
LOC: EDUNIT#
DX: S09.90XA Unspecified injury of head, initial encounter (principal); S51.012A Laceration without foreign body of left elbow, initial encounter; F17.200 Nicotine dependence, unspecified, uncomplicated; Y08.89XA Assault by other specified means, initial encounter

== ENCOUNTER 2017-09-22 15:10 | Emergency (ER) | payer OTHER ==
[2017-09-22 15:22] VITALS: RESP 18
--- NOTE | 2017-09-22 15:56 | EDPHY ---
H & P Time Seen by Provider: 09/22/17 15:30 HPI/ROS: CHIEF COMPLAINT: Alcoholism, medication request HISTORY OF PRESENT ILLNESS: 72-year-old male presents to the emergency department by private vehicle requesting medications. The patient is a known alcoholic. He last drank this morning. He has not had alcohol withdrawal seizures. He would like to quit drinking. [facility] but apparently Medicare did not cover that. He has also recently from his and is unable to get his medications over last few days. Specifically he is asking for his Zestril, Synthroid, Neurontin, and Zyprexa. Patient denies abdominal pain or chest pain. No vomiting or diarrhea. REVIEW OF SYSTEMS: Constitutional: No fever, no chills. Eyes: No double or blurry vision. ENT: No sore throat. Respiratory: No cough, no shortness of breath. Cardiac: No chest pain. Gastrointestinal: No abdominal pain, vomiting or diarrhea. Genitourinary: No dysuria. Musculoskeletal: No neck or back pain. Skin: No rashes. Neurological: No headache. Past Medical/Surgical History: Alcoholism, throat cancer, chronic nerve pain, anxiety, dementia, encephalopathy Social History: Single Smoking Status: Current every day smoker Physical Exam: General Appearance: Alert, no distress. Eyes: Pupils equal and round. Extraocular motions are all intact. ENT: Mouth: Mucous membranes moist. Respiratory: No wheezing, rhonchi, or rales, lungs are clear to auscultation. Cardiovascular: Regular rate and rhythm. Gastrointestinal: Abdomen is soft and nontender, no masses, no rebound or guarding, bowel sounds normal. Neurological: Alert and oriented x 3, cranial nerves II through XII grossly intact Skin: Warm and dry, no rashes. Musculoskeletal: Nontender to palpate along the cervical, thoracic or lumbar spine. Neck is supple. Extremities: Full range of motion and no peripheral edema. Right above elbow amputation. Psychiatric: Patient is oriented X 3, there is no agitation. Constitutional: Initial Vital Signs Temperature (C) 36.7 C 09/22/17 15:19 Heart Rate 90 09/22/17 15:19 Respiratory Rate 18 09/22/17 15:19 Blood Pressure 147/100 H 09/22/17 15:19 O2 Sat (%) 97 09/22/17 15:19 O2 Delivery Mode Room Air Allergies/Adverse Reactions: No Known Allergies Allergy (Verified 09/22/17 15:18) Home Medications: Medication Instructions Recorded Ibuprofen [Motrin (*)] 200 mg PO Q8 PRN 12/18/15 Lisinopril [Zestril 40 mg (*)] 40 mg PO DAILY 12/18/15 Amitriptyline HCl [Elavil 50 mg 25 mg PO HS #30 tab 12/23/15 (*)] Levothyroxine [Synthroid 25 mcg 25 mcg PO DAILY10 #30 tab 12/23/15 (*)] Gabapentin [Neurontin 100 MG (*)] 100 mg PO TID 10/09/16 Herbals/Supplements -Info Only 1 ea PO AD 10/09/16 OLANZapine DISINTEGR [ZyPREXA 5 mg PO HS #0 tab 10/28/16 ZYDIS (*)] Tamsulosin HCl [Flomax 0.4 MG (*)] 0.4 mg PO BID #0 cap 10/28/16 amLODIPine BESYLATE [Norvasc 2.5 2.5 mg PO DAILY #0 tab 10/28/16 mg (*)] Gabapentin 100 mg PO TID #42 tablet 09/22/17 Levothyroxine Sodium [Synthroid] 25 mcg PO DAILY #14 tablet 09/22/17 Lisinopril [Zestril 40 mg (*)] 40 mg PO DAILY #14 tab 09/22/17 OLANZapine DISINTEGR [ZyPREXA 5 mg PO HS #14 tab 09/22/17 ZYDIS (*)] Medical Decision Making ED Course/Re-evaluation: 72-year-old male presents to the emergency department wanting alcohol detox. The patient is a daily drinker and would like to stop. He states that he tried to go to [facility] [place], however he states that his Medicare would not cover it. He also states that he is benign able to get his medications over last couple of days because he recently from his who has all of his medications. Patient was also seen by case preparer and liner and who has helped to arrange for follow- up appointments with the patient. Patient was given 2 week supply of Zestril, Synthroid, Neurontin, and Zyprexa Zydis. Differential Diagnosis: Including but not limited to alcohol withdrawal, electrolyte abnormality, seizure, Wernicke encephalopathy - Data Points Laboratory Results: Laboratory Results 09/22/17 16:05 09/22/17 16:05 09/22/17 09/22/17 16:05 16:05 WBC 5.75 10^3/uL 10^3/uL (3.80-9.50) RBC 5.02 10^6/uL 10^6/uL (4.40-6.38) Hgb 17.4 g/dL g/dL (13.7-17.5) Hct 48.3 % % (40.0-51.0) MCV 96.2 fL fL (81.5-99.8) MCH 34.7 pg H pg (27.9-34.1) MCHC 36.0 g/dL g/dL (32.4-36.7) RDW 13.3 % % (11.5-15.2) Plt Count 235 10^3/uL 10^3/uL (150-400) MPV 10.0 fL fL (8.7-11.7) Neut % (Auto) 57.1 % % (39.3-74.2) Lymph % (Auto) 33.2 % % (15.0-45.0) Jones % (Auto) 8.3 % % (4.5-13.0) Eos % (Auto) 0.5 % L % (0.6-7.6) Baso % (Auto) 0.7 % % (0.3-1.7) Nucleat RBC Rel Count 0.0 % % (0.0-0.2) Absolute Neuts (auto) 3.28 10^3/uL 10^3/uL (1.70-6.50) Absolute Lymphs (auto) 1.91 10^3/uL 10^3/uL (1.00-3.00) Absolute Monos (auto) 0.48 10^3/uL 10^3/uL (0.30-0.80) Absolute Eos (auto) 0.03 10^3/uL 10^3/uL (0.03-0.40) Absolute Basos (auto) 0.04 10^3/uL 10^3/uL (0.02-0.10) Absolute Nucleated RBC 0.00 10^3/uL 10^3/uL (0-0.01) Immature Gran % 0.2 % % (0.0-1.1) Immature Gran # 0.01 10^3/uL 10^3/uL (0.00-0.10) Sodium 147 mEq/L H mEq/L (134-144) Potassium 4.3 mEq/L mEq/L (3.5-5.2) Chloride 104 mEq/L mEq/L (97-110) Carbon Dioxide 23 mEq/l mEq/l (22-31) Anion Gap 20 mEq/L H mEq/L (8-16) BUN 24 mg/dL H mg/dL (7-23) Creatinine 0.7 mg/dL mg/dL (0.7-1.3) Estimated GFR > 60 Glucose 95 mg/dL mg/dL (70-100) Calcium 10.1 mg/dL mg/dL (8.5-10.4) Ethyl Alcohol 146 mg/dL H mg/dL (0-10) Departure - Departure Disposition: Home, Routine, Self-Care Clinical Impression: Medication refill Alcohol dependence Qualifiers: Substance use status: uncomplicated Qualified Code(s): F10.20 - Alcohol dependence, uncomplicated Condition: Good Instructions: Alcohol Dependence (ED), Medicine Refill (ED) Additional Instructions: Take medications as prescribed. Follow up per case management instructions regarding alcohol detox. 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
[2017-09-22 16:23] LABS: PLATELET COUNT 235 10^3/uL (150-400)
[2017-09-22 17:38] VITALS: BP 166/92; PULSE 89; TEMP 98.2; O2SAT 94
--- NOTE | 2017-09-22 18:15 | ASDISCHSUM ---
Discharge Information Plan Status:Homeless/Assisted Medically Cleared to Leave: Discharge Date:09/22/2017 05:36 PM CM D/C Disposition:Streets (Homeless) ADT D/C Disposition:Home, Routine, Self-Care Projected Discharge Date:09/22/2017 05:36 PM Transportation at D/C:Self Discharge Delay Reason: Follow-Up Date:09/22/2017 05:36 PM Discharge Slot: Final Diagnosis: Placement Information Patient Contact Information Contact Name:IZZY(EX )MARGARITA Relationship: Address:[address] City:[place] Alternate Phone: [facility]/Zip Code:[place] [address] Email: Financial Information Financial Class: Primary Plan Desc:MEDICARE OUTPATIENT Primary Plan Number:[id number] Secondary Plan Desc:DANNY Secondary Plan Number:[id number] Assessment Information [facility] CM Progress Note CM Note CM Note Notes: Patient presented to the ED for "wanting to stop drinking." Patient hasn't been to [facility] since 2016 after he had been admitted for acute encephelopathy related to alcohol abuse. See previous CM notes in [facility]. We discussed outpatient alcohol abuse options, he said he had been to the [facility] a couple days ago but that they just "sent me to the [facility] at the [facility]" and Medicare doesn't cover treatment services. Patient recently had been staying in a hotel for the last 3 days. Patient is , his ex- Izzy lives locally but their relationship is "contentious" and she is not able to provide any help anymore. Spoke with patient and he has difficulty remembering his PCP, etc. Called [facility] and pt's PCP is Teodoro Gay, last visit was 09/16/17. Patient does not remember that visit at all. Patient states that if I make an appointment for him and write it in his discharge paperwork that will be evette to remember the appt. This scheduled an appt on Tuesday09/26/17 at 11am, arrival by 1030. Patient agreeable to this and understands that he can visit with a mental health case manager there to look into additional outpatient treatment, etc. Patient provided prescriptions for four of his home medications (pharmacy provided a med rec today), including Gabapentin. Patient states he gets them filled at [facility] on . This CM suggested he go and get them filled at our [facility]. Patient understands where it is located. Patient was discharged to the [facility], with Rxns and instructions to followup with [facility]. However, patient was discharged before this CM was able to type in the appt time. This CM plans to follow up with PC on Tuesday09/26/17 and see if Rebecca the homeless outreach RN can try to reach out to patient. Date Signed: 09/22/2017 06:14 PM Electronically Signed By:Althea Flores RN Intervention Information
--- NOTE | 2017-09-22 18:15 | ASMTCMCOM ---
CM Note CM Note Notes: Patient presented to the ED for "wanting to stop drinking." Patient hasn't been to [facility] since 2016 after he had been admitted for acute encephelopathy related to alcohol abuse. See previous CM notes in [facility]. We discussed outpatient alcohol abuse options, he said he had been to the [facility] ([facility] a couple days ago but that they just "sent me to the [facility] at the [facility]" and Medicare doesn't cover [facility] treatment services. Patient recently had been staying in a hotel for the last 3 days. Patient is , his ex- Izzy lives locally but their relationship is "contentious" and she is not able to provide any help anymore. Spoke with patient and he has difficulty remembering his PCP, etc. Called [facility] and pt's PCP is Teodoro Gay, last visit was 09/16/17. Patient does not remember that visit at all. Patient states that if I make an appointment for him and write it in his discharge paperwork that will be evette to remember the appt. This CM scheduled an appt on Tuesday09/26/17 at 11am, arrival by 1030. Patient agreeable to this and understands that he can visit with a leather case finisher there to look into additional outpatient treatment, etc. Patient provided prescriptions for four of his home medications (pharmacy provided a med rec today), including Gabapentin. Patient states he gets them filled at [facility] on . This CM suggested he go and get them filled at our [facility]. Patient understands where it is located. Patient was discharged to the [facility], with Rxns and instructions to followup with [facility]. However, patient was discharged before this CM was able to type in the appt time. This CM plans to follow up with PC on Tuesday09/26/17 and see if Rebecca the homeless outreach RN can try to reach out to patient. Date Signed: 09/22/2017 06:14 PM Electronically Signed By:Althea Flores RN
== END 2017-09-22 17:36 | disposition home or self-care (01) ==
DX: F10.20 Alcohol dependence, uncomplicated (principal); F17.200 Nicotine dependence, unspecified, uncomplicated; Z76.0 Encounter for issue of repeat prescription; Z85.818 Personal history of malignant neoplasm of other sites of lip, oral cavity, and pharynx
CPT/HCPCS: G0480

== ENCOUNTER 2017-09-26 16:27 | Emergency (ER) | payer OTHER ==
[2017-09-26] MEDS ORDERED: chlordiazePOXIDE 25 MG CAP PO ONE (18:07)
--- NOTE | 2017-09-26 18:12 | EDPHY ---
H & P Smoking Status: Current every day smoker Time Seen by Provider: 09/26/17 17:57 HPI/ROS: CHIEF COMPLAINT: "I just need to stop drinking " HISTORY OF PRESENT ILLNESS: 72-year-old male, currently living out of his van, had a friend drive him to the ER. Patient is requesting sobriety from alcohol. Last drink of alcohol was approximately 8 hr ago. Denies hallucination. Denies seizure. Denies nausea or vomiting. Denies suicidal or homicidal ideation. Denies complaints of pain or discomfort REVIEW OF SYSTEMS: A ten point review of systems was performed and is negative with the exception of the items mentioned in the HPI PAST MEDICAL & SURGICAL HISTORY: alcoholism history SOCIAL HISTORY:Positive for daily alcohol use PHYSICAL EXAM (Prior to examination, patient consented to physical exam, hands were washed and my usual and customary physical exam procedures followed) 1) GENERAL: Well-developed, well-nourished, alert and oriented. Appears to be in no acute distress. Alert oriented x4. GCS 15. 2) HEAD: Normocephalic, atraumatic 3) HEENT: Pupils equal, round, reactive to light bilaterally. Sclera anicteric. Nasopharynx, oropharynx, clear, no lesions. 4) NECK: Full range of motion, no meningeal signs. 5) LUNGS: Clear auscultation bilaterally, no wheezes, no rhonchi, no retractions. 6) HEART: Regular rate and rhythm, no murmur, no heave, no gallop. 7) ABDOMEN: No guarding, no rebound, no focal tendernessn, 8) MUSCULOSKELETAL: Mild tremor noted. Moving all extremities, no focal areas of tenderness, no obvious trauma. No peripheral edema or discoloration. 9) BACK: No obvious trauma, no visual or palpable abnormality. 10) SKIN: No rash, no petechiae. 11) Psychiatric: Patient is oriented X 3, there is no agitation. DIFFERENTIAL DIAGNOSIS: [ In no particular include but limited to delirium tremens, acute alcohol withdrawal, alcohol withdrawal seizure, encephalopathy (Maggie,Jane Sis) Constitutional: Initial Vital Signs Temperature (C) 36 C 09/26/17 16:35 Heart Rate 92 09/26/17 16:35 Respiratory Rate 18 09/26/17 16:35 Blood Pressure 161/98 H 09/26/17 16:35 O2 Sat (%) 94 09/26/17 16:35 O2 Delivery Mode Room Air Allergies/Adverse Reactions: No Known Allergies Allergy (Verified 09/26/17 16:41) Home Medications: Medication Instructions Recorded Ibuprofen [Motrin (*)] 200 mg PO Q8 PRN 12/18/15 Lisinopril [Zestril 40 mg (*)] 40 mg PO DAILY 12/18/15 Amitriptyline HCl [Elavil 50 mg 25 mg PO HS #30 tab 12/23/15 (*)] Levothyroxine [Synthroid 25 mcg 25 mcg PO DAILY10 #30 tab 12/23/15 (*)] Gabapentin [Neurontin 100 MG (*)] 100 mg PO TID 10/09/16 Herbals/Supplements -Info Only 1 ea PO AD 10/09/16 OLANZapine DISINTEGR [ZyPREXA 5 mg PO HS #0 tab 10/28/16 ZYDIS (*)] Tamsulosin HCl [Flomax 0.4 MG (*)] 0.4 mg PO BID #0 cap 10/28/16 amLODIPine BESYLATE [Norvasc 2.5 2.5 mg PO DAILY #0 tab 10/28/16 mg (*)] Gabapentin 100 mg PO TID #42 tablet 09/22/17 Levothyroxine Sodium [Synthroid] 25 mcg PO DAILY #14 tablet 09/22/17 Lisinopril [Zestril 40 mg (*)] 40 mg PO DAILY #14 tab 09/22/17 OLANZapine DISINTEGR [ZyPREXA 5 mg PO HS #14 tab 09/22/17 ZYDIS (*)] MDM/Departure - MDM Medications Given: Discontinued Medications Chlordiazepoxide (Librium 25 Mg Prepack#6) 1 btl TAKEHOME EDNOW ONE Stop: 09/26/17 18:15 Last Admin: 09/26/17 18:18 Dose: 1 btl Chlordiazepoxide HCl (Librium) 25 mg PO EDNOW ONE Stop: 09/26/17 18:08 Last Admin: 09/26/17 18:12 Dose: 25 mg ED Course/Re-evaluation: Doubt encephalopathy, doubt delirium tremens. [facility] He will be sent via [employer] cab with [employer]. Usual and customary alcohol withdrawal precautions and instructions provided Care of patient under supervision of secondary supervising physician Dr Falcon . (MaggieJane Sis) I did not see this patient while he was in the emergency department. However his care was discussed with the PA while the patient was in the department. I agree with treatment plan and management (Zackary Falcon) - Depart Disposition: Home, Routine, Self-Care Clinical Impression: Alcohol withdrawal Qualifiers: Complication of substance-induced condition: uncomplicated Qualified Code(s): F10.230 - Alcohol dependence with withdrawal, uncomplicated Condition: Good Instructions: Chlordiazepoxide (By mouth), Abuse of Alcohol (ED), Alcohol Withdrawal (ED) Referrals: [facility] [Outside] - 1-2 days without fail
[2017-09-26] MEDS ORDERED: CHLORDIAZEPOXIDE 25MG PREPK#6 BTL TAKEHOME ONE (18:14)
[2017-09-26 18:24] VITALS: BP 159/87; PULSE 89; RESP 19; TEMP 98.2; O2SAT 96
--- NOTE | 2017-09-26 19:36 | ASDISCHSUM ---
Discharge Information Plan Status:Substance Abuse Referrals Medically Cleared to Leave: Discharge Date:09/26/2017 06:26 PM D/C Disposition:[facility] (Homeless) ADT D/C Disposition:Home, Routine, Self-Care Projected Discharge Date:09/26/2017 06:26 PM Transportation at D/C:Cab Voucher Discharge Delay Reason: Follow-Up Date:09/26/2017 06:26 PM Discharge Slot: Final Diagnosis: Placement Information Patient Contact Information Contact Name:VASILIY(EX )MARGARITA Relationship:Other Address:[address] [place] [address] City:[place] Alternate Phone: State/Zip Code:[place] [address] Email: Financial Information Financial Class: Primary Plan Desc:MEDICARE OUTPATIENT Primary Plan Number:[id number] Secondary Plan Desc: Secondary Plan Number:[id number] Assessment Information [facility] CM Progress Note CM Note CM Note Notes: Patient presented to the ED with a friend, Zac Solis" (h:[phone]; c:[phone]) for help with obtaining a Rxn for his Gabapentin. Patient had not initially come to check-in to the ED. This CM worked with patient during his last ED visit 09/22/17 and provided him with Rxns for several of his home meds, including gabapentin. Patient states he lost it. Patient had an appointment at [facility] this morning but he states "I didn't feel up to going." Patient had also been provided information on [facility] locations but patient says he slept in his truck the last two nights. There is definite concern about patient driving while admitting to drinking throughout the day, and also whether patient is experiencing cognitive deficits and memory loss issues in addition to his ETOH abuse. See past admission 10/08/16-10/28/16 and ED visit on 11/16/16 for further history and possible dementia diagnosis. This CM spoke with patient and Agapito regarding the risks of drinking alcohol and taking Gabapentin. This CM called and scheduled another appt for pt with PC tomorrow at 11:20am; Agapito says he will make sure patient gets to appt. We discussed patient going to [facility] for [facility] tonight; predicting that if he were to just show up there, would send him back to the ED for med clearance and Librium; this CM recommended he check into the ED to be med cleared and provided the librium and then we would cab him to . Pt and Agapito agreeable to this plan. Agapito left to drive pt's truck to his house at [address] [place] [address]; Agapito has the keys to pts car. Agapito was able to bring pt's cell phone ([phone]) to him in the ED. Patient d/c'd to with Librium via cab. This CM called [facility] and spoke with Andie and relayed eventual discharge plan: Agapito to pick pt up in the morning from detox and transport to PC appt. CM to follow up w/pt and PC tomorrow. Date Signed: 09/26/2017 07:34 PM Electronically Signed By:Althea Flores RN Intervention Information Intervention Type:Cab Vouchers Date of Service:09/26/2017 07:34 PM Patient Type:Emergency Room Staff Member:ANASTASIA Flores [place] Hours:0.25 Discipline:[employer] Supervisor Severity: Comment:cab to [facility] Intervention Type:Medication Date of Service:09/26/2017 07:34 PM Patient Type:Emergency Room Staff Member:ANASTASIA Flores [place] Hours:0.25 Discipline:[employer] Supervisor Severity: Comment:Librium pre-pack provided and given to fibre optic cable splicer to give to [facility] staff Intervention Type:Health Clinic Date of Service:09/26/2017 07:34 PM Patient Type:Emergency Room Staff Member:ANASTASIA Flores [place] Hours:0.25 Discipline:[employer] Supervisor Severity: Comment:Follow-up apt with [facility]
--- NOTE | 2017-09-27 20:01 | ASMTCMCOM ---
CM Note CM Note Notes: Followed up with [facility] today; patient did make it to his appt this morning and met with a provider, Behavioral Health RN and Circulation Clerk. CM available for further assistance if needed. Date Signed: 09/27/2017 08:01 PM Electronically Signed By:Althea Flores RN
== END 2017-09-26 18:26 | disposition home or self-care (01) ==
DX: F10.230 Alcohol dependence with withdrawal, uncomplicated (principal); F17.200 Nicotine dependence, unspecified, uncomplicated

== ENCOUNTER 2017-10-12 09:46 | Inpatient (IN) | payer OTHER ==
--- NOTE | 2017-10-12 10:09 | EDPHY ---
H & P Stated Complaint: cough/sob exertional hypoxia Time Seen by Provider: 10/12/17 10:01 HPI/ROS: Chief Complaint: Shortness of breath, cough HPI: 72-year-old homeless male presenting with several days of worsening cough and shortness of breath. Cough is nonproductive. No fevers or chills. No body aches. No sore throat or headache. No nausea or vomiting. He does feel quite fatigued. Has a history of pneumonia a year ago and this feels similar. He is currently a smoker. Does not have a diagnosis of COPD. Also has a strong history of alcohol abuse. ROS: 10 point Review of Systems is negative except as noted in the HPI. 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 PMHx: chronic nerve pain in mouth, anxiety, alcoholism, dementia - Social History Smoking Status: Current every day smoker Constitutional: Initial Vital Signs Temperature (C) 36.9 C 10/12/17 09:50 Heart Rate 110 H 10/12/17 09:50 Respiratory Rate 22 H 10/12/17 09:50 Blood Pressure 151/80 H 10/12/17 09:50 O2 Sat (%) 90 L 10/12/17 09:50 O2 Delivery Mode Room Air Allergies/Adverse Reactions: No Known Allergies Allergy (Verified 10/12/17 09:49) Home Medications: Medication Instructions Recorded Ibuprofen [Motrin (*)] 200 mg PO Q8 PRN 12/18/15 Lisinopril [Zestril 40 mg (*)] 40 mg PO DAILY 12/18/15 Amitriptyline HCl [Elavil 50 mg 25 mg PO HS #30 tab 12/23/15 (*)] Levothyroxine [Synthroid 25 mcg 25 mcg PO DAILY10 #30 tab 12/23/15 (*)] Gabapentin [Neurontin 100 MG (*)] 100 mg PO TID 10/09/16 Herbals/Supplements -Info Only 1 ea PO AD 10/09/16 OLANZapine DISINTEGR [ZyPREXA 5 mg PO HS #0 tab 10/28/16 ZYDIS (*)] Tamsulosin HCl [Flomax 0.4 MG (*)] 0.4 mg PO BID #0 cap 10/28/16 amLODIPine BESYLATE [Norvasc 2.5 2.5 mg PO DAILY #0 tab 10/28/16 mg (*)] Gabapentin 100 mg PO TID #42 tablet 09/22/17 Levothyroxine Sodium [Synthroid] 25 mcg PO DAILY #14 tablet 09/22/17 Lisinopril [Zestril 40 mg (*)] 40 mg PO DAILY #14 tab 09/22/17 OLANZapine DISINTEGR [ZyPREXA 5 mg PO HS #14 tab 09/22/17 ZYDIS (*)] Medical Decision Making - Diagnostics Imaging Results: Imaging Impressions Chest X-Ray 10/12/17 10:09 Impression: Bilateral lower lung pneumonia with a small left pleural effusion. ED Course/Re-evaluation: [age] will male with upper respiratory symptoms. He meets SIRS criteria. Will order sepsis screen. Chest x-ray noted for bilateral lower infiltrates. He is positive for both influenza a and rhino virus. Patient's lactate is greater than 2. IV fluid bolus has been ordered. Ceftriaxone has been ordered. His hemodynamics have been appropriate. He is satting 91% on room air. Hospitalist has been paged. - Data Points Laboratory Results: Laboratory Results 10/12/17 10:55 10/12/17 10:55 10/12/17 10/12/17 10/12/17 10:55 10:55 10:55 WBC RBC Hgb Hct MCV MCH MCHC RDW Plt Count MPV Neut % (Auto) Lymph % (Auto) [place] % (Auto) Eos % (Auto) Baso % (Auto) Nucleat RBC Rel Count Absolute Neuts (auto) Absolute Lymphs (auto) Absolute Monos (auto) Absolute Eos (auto) Absolute Basos (auto) Absolute Nucleated RBC Immature Gran % Seg Neutrophils % Band Neutrophils % Lymphocytes % Monocytes % Immature Gran # Absolute Seg Neuts Absolute Band Neuts Absolute Lymphocytes Absolute Monocytes Toxic Vacuolation Platelet Estimate Polychromasia PT 16.9 SEC H SEC (12.0-15.0) INR 1.36 H (0.83-1.16) APTT 27.8 SEC SEC (23.0-38.0) VBG Lactic Acid 2.8 mmol/L H mmol/L (0.7-2.1) Sodium 140 mEq/L mEq/L (135-145) Potassium 3.7 mEq/L mEq/L (3.5-5.2) Chloride 97 mEq/L mEq/L (97-110) Carbon Dioxide 23 mEq/l mEq/l (22-31) Anion Gap 20 mEq/L H mEq/L (8-16) BUN 13 mg/dL mg/dL (7-23) Creatinine 0.6 mg/dL L mg/dL (0.7-1.3) Estimated GFR > 60 Glucose 89 mg/dL mg/dL (70-100) Calcium 8.8 mg/dL mg/dL (8.5-10.4) Total Bilirubin 1.3 mg/dL mg/dL (0.1-1.4) Nasal Influenza A PCR Nasal Influenza B PCR 10/12/17 10/12/17 10:55 10:09 WBC 23.17 10^3/uL H 10^3/uL (3.80-9.50) RBC 4.55 10^6/uL 10^6/uL (4.40-6.38) Hgb 15.2 g/dL g/dL (13.7-17.5) Hct 43.0 % % (40.0-51.0) MCV 94.5 fL fL (81.5-99.8) MCH 33.4 pg pg (27.9-34.1) MCHC 35.3 g/dL g/dL (32.4-36.7) RDW 12.9 % % (11.5-15.2) Plt Count 444 10^3/uL H 10^3/uL (150-400) MPV 9.8 fL fL (8.7-11.7) Neut % (Auto) Not Reported Lymph % (Auto) Not Reported [place] % (Auto) Not Reported Eos % (Auto) Not Reported Baso % (Auto) Not Reported Nucleat RBC Rel Count 0.0 % % (0.0-0.2) Absolute Neuts (auto) Not Reported Absolute Lymphs (auto) Not Reported Absolute Monos (auto) Not Reported Absolute Eos (auto) Not Reported Absolute Basos (auto) Not Reported Absolute Nucleated RBC 0.00 10^3/uL 10^3/uL (0-0.01) Immature Gran % Not Reported Seg Neutrophils % 86 % % Band Neutrophils % 1 % % Lymphocytes % 6 % % Monocytes % 7 % % Immature Gran # Not Reported Absolute Seg Neuts 19.93 10^/uL H 10^/uL (1.70-6.50) Absolute Band Neuts 0.23 10^3/uL 10^3/uL (0.00-0.70) Absolute Lymphocytes 1.39 10^3/uL 10^3/uL (1.00-3.00) Absolute Monocytes 1.62 10^3/uL H 10^3/uL (0.30-0.80) Toxic Vacuolation PRESENT H Platelet Estimate ADEQUATE (ADEQ) Polychromasia 1+ H PT INR APTT VBG Lactic Acid Sodium Potassium Chloride Carbon Dioxide Anion Gap BUN Creatinine Estimated GFR Glucose Calcium Total Bilirubin Nasal Influenza A PCR TNP Nasal Influenza B PCR TNP Microbiology Results: MICROBIOLOGY 10/12/17 10:00 Nasal, Sinus - Swab Respiratory Panel (PCR) - Final Influenza Type A Detected Human Rhinovirus/Enterovirus Departure - Departure Disposition: [facility] Acute Clinical Impression: Pneumonia, Influenza Condition: Fair Referrals: Chel Tatum NP [Primary Care Provider] - As per Instructions
[2017-10-12 11:10] LABS: PLATELET COUNT 444 10^3/uL (150-400)
[2017-10-12 11:16] LABS: INR 1.36 (0.83-1.16); PROTIME(PATIENT) 16.9 SEC (12.0-15.0)
[2017-10-12] MEDS ORDERED: NS 1,700 ML IV ONE (11:46)
[2017-10-12] MEDS ORDERED: cefTRIAXone 1 GM in STERILE WATER INJ 10 ML IV ONE (11:50)
[2017-10-12] MEDS ORDERED: OSELTAMIVIR PHOSPHATE 75 MG CAP PO ONE (12:01)
[2017-10-12] MEDS ORDERED: ONDANSETRON DISINTEGRATING 4 MG TAB PO PRN (12:55)
[2017-10-12] MEDS ORDERED: NS 1,000 ML IV ONE (12:55)
[2017-10-12] MEDS ORDERED: ACETAMINOPHEN 325 MG TAB PO PRN (12:55)
[2017-10-12] MEDS ORDERED: ALBUTEROL 3 ML DEYVIAL IH PRN (12:55)
[2017-10-12] MEDS ORDERED: ONDANSETRON 4 MG/2 ML VIAL IVP PRN (12:55)
[2017-10-12] MEDS ORDERED: Herbals/Supplements -Info Only PO SCH (13:00)
[2017-10-12] MEDS ORDERED: THIAMINE HCL 500 MG in NS 250 ML IV SCH (14:30)
--- NOTE | 2017-10-12 15:03 | GHP ---
[f rep st] HISTORY AND PHYSICAL DATE OF ADMISSION: 10/12/2017 CHIEF COMPLAINT: Cough. HISTORY OF PRESENT ILLNESS: This is a 72-year-old male with a history of alcohol abuse and homelessn ess who presents with 2 weeks of progressing cough productive of non-discolored sputum. The patient denies any associated shortness of breath, but persistence and worsening of his cough. He endorses s ome lightheadedness. No nausea, vomiting. Denies diarrhea. Denies known sick contacts. Denies dys uria, hematuria, rashes, lower extremity edema. PAST MEDICAL HISTORY: 1. BPH. 2. Hypothyroidism. 3. Post-traumatic stress disorder. 4. Depression. 5. Alcohol abuse. 6. Hypertension. SOCIAL HISTORY: Positive for half a pack to a pack per day smoking. The patient drinks a pint plus of alcohol a day. Denies illicit drugs or marijuana. FAMILY HISTORY: Both parents are . No history of diabetes or heart disease. REVIEW OF SYSTEMS: A 10-point review of systems is negative with the exception of that reported in t he HPI. PHYSICAL EXAMINATION: VITAL SIGNS: Blood pressure 151/80, heart rate 110, respiratory rate 22, satu rating 90% on room air. GENERAL: This is a disheveled appearing elderly male in no acute distress. HEENT: Notable for dry mucous membranes. Eye exam is negative for any icterus. CARDIAC: Patient is tachycardic, but regular. PULMONARY: The patient has rhonchi at the bilateral base. GASTROINTES TINAL: Positive bowel sounds. ABDOMEN: Soft and nontender. MUSCULOSKELETAL: Patient is status po st amputation of his right upper extremity. Stump is well healed and normal. No lower extremity wesley ma is appreciated. SKIN: Negative for any rashes. NEUROLOGIC: Patient is tremulous with tongue fa sciculations. PSYCHIATRIC: He is pleasant and cooperative on interview and examination. LABORATORY DATA: White count 23,000, hematocrit 43, which is above previous baselines of 37 to 38, p latelets of 444, above previous baselines that were thrombocytopenic. MCV is 94 today, previously in the 100s. INR 1.36. Lactic acid 2.8. Anion gap of 20. Creatinine 0.6. Respiratory panel PCR shows influenza A, rhinovirus, and enterovirus. IMAGING: Chest x-ray, which I personally reviewed and interpreted, shows bilateral infiltrates in th e lower lobe distributions. ASSESSMENT AND PLAN: This is a 72-year-old male presenting with cough. 1. Sepsis. The patient is presenting with leukocytosis, tachycardia, and elevated lactic acid. Pre sumed source is pulmonary. We will aggressively fluid resuscitate. Blood cultures and sputum cultur es have been sent to the lab. We will empirically treat for community-acquired pneumonia with ceftri axone and azithromycin. 2. community-acquired pneumonia. The patient has had influenza as well as rhinovirus and enteroviru s identified in his respiratory PCR. We will send a procalcitonin to rule in a secondary bacterial p neumonia. Again, blood cultures are pending from the emergency department. We will empirically kayy t with ceftriaxone and azithromycin until procalcitonin is back. 3. Acute alcohol withdrawal. Patient drinks heavily on a daily basis and is presenting with his las t drink approximately 16 hours ago. He has tremors and tongue fasciculation on examination. We will initiate scheduled Librium and CIWA protocol per symptoms as well as IV thiamin today and p.o. ney in and folate thereafter. 4. Anion gap acidosis, presumed secondary to lactic acidosis. We will follow patient's lactic acid, status post fluid resuscitation. 5. Normal MCV. The patient previously with profound macrocytosis. We will send iron studies. 6. Acute encephalopathy, presumed secondary to alcohol withdrawal and acute illness. We will treat both and follow the patient's mental status overnight. 7. Acute leukocytosis, presumed secondary to community-acquired pneumonia. We will empirically kayy t and follow. 8. Coagulopathy, presumed secondary to alcohol abuse. We will give the patient vitamin K and send l iver function tests. 9. Alcohol abuse. The patient does express an interest in alcohol cessation. I have ordered CIWA p rotocol and can provide resources for the community at disposition. 10. Prophylaxis with Lovenox. DIET: Regular. DISPOSITION: I expect greater than 2 midnights as the patient is greater than 71 years of age, homel ess, and presenting with sepsis and pneumonia complicated by acute alcohol withdrawal. I discussed t he case with the floor RN. We will repeat our first lactic acidosis after the third fluid bolus from the emergency department. /[id number]/MODL
[2017-10-12] MEDS: IPRATROPIUM/ALBUTEROL 3 ML DEYVIAL IH SCH ×2 (15:22→20:38)
[2017-10-12] MEDS: FOLIC ACID 1 MG TAB PO SCH (16:11)
[2017-10-12] MEDS: GABAPENTIN 100 MG CAP PO SCH ×2 (16:11→20:53)
[2017-10-12] MEDS: chlordiazePOXIDE 25 MG CAP PO SCH ×2 (16:11→20:52)
[2017-10-12] MEDS: AZITHROMYCIN IV 500 MG in D5W 250 ML IV SCH (16:12)
[2017-10-12] MEDS: LORazepam 1 MG TAB PO PRN (17:11)
[2017-10-12] MEDS: TAMSULOSIN HCL 0.4 MG CAP PO SCH (20:52)
[2017-10-12] MEDS: OLANZapine 2.5 MG TAB PO SCH (20:53)
[2017-10-12] MEDS: guaiFENesin 600 MG TAB.ER PO SCH (20:53)
[2017-10-13] MEDS: LEVOTHYROXINE 25 MCG TAB PO SCH (05:17)
[2017-10-13 05:19] LABS: PLATELET COUNT 341 10^3/uL (150-400)
[2017-10-13] MEDS: IPRATROPIUM/ALBUTEROL 3 ML DEYVIAL IH SCH ×4 (05:40→20:41)
[2017-10-13] MEDS: cefTRIAXone 1 GM in STERILE WATER INJ 10 ML IV SCH (08:38)
[2017-10-13] MEDS: ENOXAPARIN 40 MG/0.4 ML SYR SC SCH (08:41)
[2017-10-13] MEDS: FOLIC ACID 1 MG TAB PO SCH (08:41)
[2017-10-13] MEDS: guaiFENesin 600 MG TAB.ER PO SCH ×2 (08:41→20:19)
[2017-10-13] MEDS: chlordiazePOXIDE 25 MG CAP PO SCH ×3 (08:41→20:20)
[2017-10-13] MEDS: GABAPENTIN 100 MG CAP PO SCH ×3 (08:41→20:20)
[2017-10-13] MEDS: TAMSULOSIN HCL 0.4 MG CAP PO SCH ×2 (08:41→20:20)
[2017-10-13] MEDS ORDERED: THIAMINE HCL 500 MG in NS 100 ML IV SCH (09:00)
[2017-10-13] MEDS ORDERED: LEVOTHYROXINE SODIUM 25 MCG PO SCH (09:00)
[2017-10-13] MEDS: AZITHROMYCIN IV 500 MG in D5W 250 ML IV SCH (09:41)
--- NOTE | 2017-10-13 10:52 | PDMN ---
Medical Necessity Medical necessity: Pt meets IP criteria per MD; est los >2 mn for eval/tx of sepsis & pneumonia complicated by acute alcohol withdrawl; admit for further monitoring, supportive care, IVFs, IV thiamin, IV abx & CIWA protocol; hx BPH, HTN, alcoholism & homelessness; per H&P & order 10/12/17
[2017-10-13] MEDS ORDERED: NS 1,000 ML IV SCH (14:45)
--- NOTE | 2017-10-13 15:12 | HOSPPROG ---
Hospitalist Progress Note Assessment/Plan: # Sepsis- 2/2 pna - leukocytosis and tachycardia improving - s/p fluids and antibiotics overnight Blood cx - NGTD - cont IVF - cont empiric abx # acute hypoxic respiratory failure-secondary to pneumonia- influenza A entero/ rhino virus positive on PCR Oxygen saturations 92% on 2L - chest x-ray(personally reviewed and interpreted) modest bilateral infiltrates Procalcitonin elevated 0.88 - continue empiric treatment for bacterial pneumonia - monitor cultures - continue scheduled duo nebs - continue Mucinex # acute encephalopathy suspect hepatic in etiology patient has positive asterixis on exam - initiate lactulose - will treat underlying sepsis # acute alcohol withdrawal- diminish tremor today on scheduled Librium - continue CIWA - continue IV vitamins - continue Librium # PTSD- continue home meds # prophylaxis Lovenox # diet regular # disposition greater than 2 midnights as the patient is 72 presenting with sepsis secondary to pneumonia And encephalopathy I have discussed case with the RN we will initiate maintenance fluids as the patient's p.o. intake has been poor today Subjective: worn out Objective: Vital Signs Temp Pulse Resp BP Pulse Ox 36.3 C 90 36 H 138/71 H 94 10/13/17 12:00 10/13/17 12:00 10/13/17 12:00 10/13/17 12:00 10/13/17 12:00 Laboratory Results 10/13/17 04:38 10/13/17 04:38 10/12/17 10/13/17 10/14/17 05:59 05:59 05:59 Intake Total 1505 Balance 1505 PT 16.9 SEC (12.0-15.0) H 10/12/17 10:55 INR 1.36 (0.83-1.16) H 10/12/17 10:55 - Physical Exam Constitutional: no apparent distress Eyes: anicteric sclera Ears, Nose, Mouth, Throat: moist mucous membranes Cardiovascular: regular rate and rhythym, systolic murmur Respiratory: no respiratory distress, rhonchi Gastrointestinal: normoactive bowel sounds Genitourinary: no bladder fullness Skin: warm Musculoskeletal: No asymmetric calves Neurologic: No AAOx3 Psychiatric: encephalopathic Lymph, Heme, Immunologic: no cervical LAD ICD10 Worksheet Patient Problems: Problems Problem Status Onset Influenza Acute Pneumonia Acute chronic disease mgmt/transitional care Acute Alcohol withdrawal Acute PTSD (post-traumatic stress disorder) Acute Severe major depression Acute
[2017-10-13] MEDS: LACTULOSE 20 GM/30 ML UDCUP PO SCH ×3 (15:59→20:21)
--- NOTE | 2017-10-13 17:10 | ASMTCMCOM ---
CM Note CM Note Notes: Pt. is a 72-year-old man admitted for sepsis, PNA, encephalopathy and ETOH withdrawal. Hx. BPH, hypothyroidism, PTSD, Depression, excessive alcohol use, HTN, and smoking. Pt. on CIWA protocol. Per notes, states he wants to stop drinking. PT is ordered. Await consult to assist in d/c planning. CM to follow. Date Signed: 10/13/2017 05:09 PM Electronically Signed By:Althea Morris LCSW
[2017-10-13] MEDS: OLANZapine 2.5 MG TAB PO SCH (20:20)
[2017-10-14] MEDS: LORazepam 1 MG TAB PO PRN (04:22)
[2017-10-14] MEDS: LEVOTHYROXINE 25 MCG TAB PO SCH (05:14)
[2017-10-14] MEDS: IPRATROPIUM/ALBUTEROL 3 ML DEYVIAL IH SCH ×4 (05:40→21:27)
[2017-10-14] MEDS ORDERED: THIAMINE HCL 500 MG in NS 250 ML IV SCH (09:00)
[2017-10-14] MEDS: ENOXAPARIN 40 MG/0.4 ML SYR SC SCH (09:30)
[2017-10-14] MEDS: cefTRIAXone 1 GM in STERILE WATER INJ 10 ML IV SCH (09:31)
[2017-10-14] MEDS: AZITHROMYCIN IV 500 MG in D5W 250 ML IV SCH (09:33)
[2017-10-14] MEDS: LACTULOSE 20 GM/30 ML UDCUP PO SCH ×3 (09:35→21:27)
[2017-10-14] MEDS: chlordiazePOXIDE 25 MG CAP PO SCH ×2 (09:36→16:21)
[2017-10-14] MEDS: FOLIC ACID 1 MG TAB PO SCH (09:36)
[2017-10-14] MEDS: TAMSULOSIN HCL 0.4 MG CAP PO SCH ×2 (09:36→21:27)
[2017-10-14] MEDS ORDERED: GABAPENTIN 250 MG/5 ML 30 ML BOTTLE PO SCH (11:00)
[2017-10-14] MEDS ORDERED: GUAIFENESIN 20 MG/ML PO SCH (11:00)
[2017-10-14] MEDS: GABAPENTIN 100 MG CAP PO SCH (11:24)
[2017-10-14] MEDS: guaiFENesin 600 MG TAB.ER PO SCH (11:24)
[2017-10-14] MEDS: GABAPENTIN 250 MG/5 ML 30 ML BOTTLE PO SCH ×3 (11:25→21:26)
[2017-10-14] MEDS: guaiFENesin 200 MG/10 ML UDL PO SCH ×3 (11:30→21:26)
--- NOTE | 2017-10-14 12:02 | ASMTCMCOM ---
CM Note CM Note Notes: Per RN, Pt. still encephalopathic today. PT recommending SNF. SWer made referrals via [employer] today. Await responses. Pt. will need PASRR social work assessment when mentally clears. Hx. depression and PTSD. CM to follow for d/c POC. Date Signed: 10/14/2017 12:02 PM Electronically Signed By:Althea Morris LCSW
--- NOTE | 2017-10-14 15:34 | ASMTCMCOM ---
CM Note CM Note Notes: Today Yuliet from [facility] asked if Pt. had a plan for housing after SNF rehab. Ron found that Pt's Izzy Lynch listed as medical decision maker in electronic chart. No official [facility] paperwork in chart. Due to Pt. not being decisional today, Ron called Izzy to help w/ d/c planning. Izzy grateful for the call. Plans to visit Pt. this evening. Plan to work with SNFs to place Pt. Izzy states that Pt. spent a few months at [facility] last year around this time. Izzy found [facility] to be "acceptable". Interested in options, including [facility]. Izzy states she and Pt. , but she is happy to help with his care decisions. Izzy explained that she and Pt. shared a home at [address] [place] [address] but after divorce she asked him to move out on 09/19/17. Pt's last place to stay was in a hotel per Izzy. Izzy is OK with receiving calls from SNFs. Left Yuliet a msg letting her know she could call Izzy. Izzy states she and their daughter have been looking into a place called "[facility]" in [facility]. They apparently have less expensive rooms. Ron provided CM and Floor phone numbers for Izzy. CM to follow for d/c POC. Date Signed: 10/14/2017 03:33 PM Electronically Signed By:Althea Morris LCSW
--- NOTE | 2017-10-14 18:08 | HOSPPROG ---
Hospitalist Progress Note Assessment/Plan: # CAP - change rocephin to zosyn for nosocomial/aspiration coverage - cont azith # sepsis - d/t pna; improving # encephalopathy - d/t etOH abuse, sepsis, possible bzd's - will follow very closely; protecting airway currently; # AHRF - d/t pna; cont close O2 monitoring - high risk for worsening given encephalopathy # etOH abuse and w/d - cont CIWA very cautiously given his sedation # anemia - likely Fe defic and etOH; follow, consider Fe replacement Subjective: sleeping, arouses to loud voice Objective: Vital Signs Temp Pulse Resp BP Pulse Ox 36.6 C 84 18 145/75 H 93 10/14/17 15:45 10/14/17 15:45 10/14/17 15:45 10/14/17 15:45 10/14/17 15:45 Laboratory Results 10/14/17 04:37 10/13/17 04:38 10/13/17 10/14/17 10/15/17 05:59 05:59 05:59 Intake Total 1505 1000 581 Balance 1505 1000 581 PT 16.9 SEC (12.0-15.0) H 10/12/17 10:55 INR 1.36 (0.83-1.16) H 10/12/17 10:55 - Physical Exam Constitutional: unkempt, cachectic Cardiovascular: regular rate and rhythym, no murmur, rub, or gallop Respiratory: no rales or rhonchi, respiratory distress (mild), other ( protecting airway) Gastrointestinal: normoactive bowel sounds, soft, non-tender abdomen ICD10 Worksheet Patient Problems: Problems Problem Status Onset Influenza Acute Pneumonia Acute chronic disease [facility]/transitional care Acute Alcohol withdrawal Acute PTSD (post-traumatic stress disorder) Acute Severe major depression Acute
[2017-10-14] MEDS: PIPERACILLIN/TAZO 4.5 GM/DEX 100 ML IV SCH ×2 (18:27→23:43)
[2017-10-15] MEDS: guaiFENesin 200 MG/10 ML UDL PO SCH ×4 (05:39→19:53)
[2017-10-15] MEDS: LEVOTHYROXINE 25 MCG TAB PO SCH (05:39)
[2017-10-15] MEDS: PIPERACILLIN/TAZO 4.5 GM/DEX 100 ML IV SCH ×4 (05:42→23:33)
[2017-10-15] MEDS: IPRATROPIUM/ALBUTEROL 3 ML DEYVIAL IH SCH ×4 (05:47→21:07)
[2017-10-15] MEDS: OSELTAMIVIR 6 MG/ML UDSYR PO SCH ×2 (09:23→15:53)
[2017-10-15] MEDS: FOLIC ACID 1 MG TAB PO SCH (09:24)
[2017-10-15] MEDS: GABAPENTIN 250 MG/5 ML 30 ML BOTTLE PO SCH ×3 (09:24→19:53)
[2017-10-15] MEDS: ENOXAPARIN 40 MG/0.4 ML SYR SC SCH (09:24)
[2017-10-15] MEDS: LACTULOSE 20 GM/30 ML UDCUP PO SCH ×3 (09:24→19:53)
[2017-10-15] MEDS: AZITHROMYCIN IV 500 MG in D5W 250 ML IV SCH (09:24)
[2017-10-15] MEDS: THIAMINE HCL 100 MG TAB PO SCH (09:25)
[2017-10-15] MEDS: TAMSULOSIN HCL 0.4 MG CAP PO SCH ×2 (09:25→19:53)
--- NOTE | 2017-10-15 16:16 | ASMTCMCOM ---
CM Note CM Note Notes: CM spoke with pt's exwife Izzy regarding pt's d/c plan. Izzy is getting pressured by her family to disengage herself from pt because of the stress she has experienced due to pt's alcoholism. Izzy said he has a daugthter in [facility] named Leticia [phone] and she and Leticia are in contact discussing pt's situation. Moving forward, it would be advisable for Leticia to make decisions regarding pt's medical care. He and Izzy are and there is no legal documentation appointing her proxy or MDPOA. Izzy thinks this will be a more positive way to go as it allows pt's daughter to participate and reduces Izzy's stress. She and Izzy will continue to discuss pt's options together. The [facility] in [place] has accepted pt, Izzy Pedraza and Jennifer are interested but will need more information over the next few days before making a decision. Date Signed: 10/15/2017 04:15 PM Electronically Signed By:KENNETH Jacob
--- NOTE | 2017-10-15 17:06 | HOSPPROG ---
Hospitalist Progress Note Assessment/Plan: # CAP - change rocephin to zosyn for nosocomial/aspiration coverage - cont azith # influenza A, rhinovirus/enterovirus + - tamiflu # sepsis - d/t pna; improving # encephalopathy, acute on chronic - daughter tells me his functional status has significantly declined over the last year - d/t etOH abuse, sepsis, possible bzd's # AHRF - d/t pna; cont close O2 monitoring - high risk for worsening given encephalopathy # chronic dysphagia d/t XRT in setting of tongue cancer # etOH abuse and w/d - cont CIWA very cautiously given his sedation # anemia - likely Fe defic and etOH; follow, consider Fe replacement Subjective: still very somnolent today; discussed with daughter on the phone Objective: Vital Signs Temp Pulse Resp BP Pulse Ox 36.8 C 78 28 H 149/80 H 100 10/15/17 15:00 10/15/17 16:15 10/15/17 16:15 10/15/17 15:00 10/15/17 16:15 Laboratory Results 10/14/17 04:37 10/13/17 04:38 10/14/17 10/15/17 10/16/17 05:59 05:59 05:59 Intake Total 1000 581 Balance 1000 581 PT 16.9 SEC (12.0-15.0) H 10/12/17 10:55 INR 1.36 (0.83-1.16) H 10/12/17 10:55 - Time Spent With Patient Time Spent with Patient: greater than 35 minutes Time Spent with Patient: Greater than 35 minutes spent on this patients care, greater than 50% of time spent counseling, educating, and coordinating care regarding the above mentioned plan. - Physical Exam Constitutional: other (sleeping, awakes to voice) Cardiovascular: regular rate and rhythym, no murmur, rub, or gallop Respiratory: no respiratory distress, inspiratory crackles, No clear to auscultation, No reduced air movement Gastrointestinal: soft, non-tender abdomen, no palpable masses Neurologic: other (moves all extr) ICD10 Worksheet Patient Problems: Problems Problem Status Onset chronic disease mgmt/transitional care Acute PTSD (post-traumatic stress disorder) Acute Severe major depression Acute Alcohol withdrawal Acute Pneumonia Acute Influenza Acute
[2017-10-16] MEDS: NS 1,000 ML IV SCH ×2 (01:44→16:59)
[2017-10-16] MEDS: guaiFENesin 200 MG/10 ML UDL PO SCH ×4 (05:19→20:18)
[2017-10-16] MEDS: LEVOTHYROXINE 25 MCG TAB PO SCH (05:20)
[2017-10-16] MEDS: PIPERACILLIN/TAZO 4.5 GM/DEX 100 ML IV SCH ×4 (05:20→23:06)
[2017-10-16] MEDS: IPRATROPIUM/ALBUTEROL 3 ML DEYVIAL IH SCH ×4 (05:57→21:37)
--- NOTE | 2017-10-16 08:41 | HOSPPROG ---
Hospitalist Progress Note Assessment/Plan: # encephalopathy, acute on chronic - actually more alert today (AOx1) - daughter tells me his functional status has significantly declined over the last year; not clear exactly how aggressive care he would want - d/t etOH abuse, sepsis, possible bzd's # CAP - cont azith/zosyn # influenza A, rhinovirus/enterovirus + - tamiflu # sepsis - d/t pna; improving # AHRF - d/t pna; cont close O2 monitoring - high risk for worsening given encephalopathy # chronic dysphagia d/t XRT in setting of tongue cancer # etOH abuse and w/d - cont CIWA very cautiously given his sedation # anemia - likely Fe defic and etOH; follow, consider Fe replacement Subjective: stiing in chair; more alert today but tried to drink from urinal Objective: Vital Signs Temp Pulse Resp BP Pulse Ox 36.5 C 80 16 139/88 H 96 10/16/17 08:00 10/16/17 08:00 10/16/17 08:00 10/16/17 08:00 10/16/17 08:00 Laboratory Results 10/14/17 04:37 10/16/17 05:32 10/15/17 10/16/17 10/17/17 05:59 05:59 05:59 Intake Total 581 1050 Balance 581 1050 PT 16.9 SEC (12.0-15.0) H 10/12/17 10:55 INR 1.36 (0.83-1.16) H 10/12/17 10:55 - Physical Exam Constitutional: no apparent distress, appears nourished Cardiovascular: regular rate and rhythym, no murmur, rub, or gallop Respiratory: no respiratory distress, no rales or rhonchi, clear to auscultation Gastrointestinal: normoactive bowel sounds, soft, non-tender abdomen, no palpable masses ICD10 Worksheet Patient Problems: Problems Problem Status Onset chronic disease mgmt/transitional care Acute PTSD (post-traumatic stress disorder) Acute Severe major depression Acute Alcohol withdrawal Acute Pneumonia Acute Influenza Acute
[2017-10-16 09:04] LABS: PLATELET COUNT 456 10^3/uL (150-400)
[2017-10-16] MEDS: ENOXAPARIN 40 MG/0.4 ML SYR SC SCH (09:22)
[2017-10-16] MEDS: AZITHROMYCIN IV 500 MG in D5W 250 ML IV SCH (09:22)
[2017-10-16] MEDS: FOLIC ACID 1 MG TAB PO SCH (09:23)
[2017-10-16] MEDS: THIAMINE HCL 100 MG TAB PO SCH (09:23)
[2017-10-16] MEDS: TAMSULOSIN HCL 0.4 MG CAP PO SCH ×2 (09:23→20:18)
[2017-10-16] MEDS: OSELTAMIVIR 6 MG/ML UDSYR PO SCH ×2 (09:23→18:01)
[2017-10-16] MEDS: GABAPENTIN 250 MG/5 ML 30 ML BOTTLE PO SCH ×3 (09:23→20:18)
[2017-10-16] MEDS: LACTULOSE 20 GM/30 ML UDCUP PO SCH ×3 (09:23→20:19)
[2017-10-17] MEDS: NS 1,000 ML IV SCH (04:17)
[2017-10-17] MEDS: PIPERACILLIN/TAZO 4.5 GM/DEX 100 ML IV SCH ×3 (05:08→17:59)
[2017-10-17] MEDS: LEVOTHYROXINE 25 MCG TAB PO SCH (05:09)
[2017-10-17] MEDS: guaiFENesin 200 MG/10 ML UDL PO SCH ×4 (05:09→22:33)
[2017-10-17] MEDS: IPRATROPIUM/ALBUTEROL 3 ML DEYVIAL IH SCH ×4 (05:13→20:40)
[2017-10-17 05:23] LABS: PLATELET COUNT 464 10^3/uL (150-400)
[2017-10-17] MEDS: AZITHROMYCIN IV 500 MG in D5W 250 ML IV SCH (08:34)
[2017-10-17] MEDS: ENOXAPARIN 40 MG/0.4 ML SYR SC SCH (08:34)
[2017-10-17] MEDS: LACTULOSE 20 GM/30 ML UDCUP PO SCH ×3 (09:15→22:34)
[2017-10-17] MEDS: FOLIC ACID 1 MG TAB PO SCH (09:15)
[2017-10-17] MEDS: GABAPENTIN 250 MG/5 ML 30 ML BOTTLE PO SCH ×3 (09:15→22:34)
[2017-10-17] MEDS: TAMSULOSIN HCL 0.4 MG CAP PO SCH ×2 (09:15→22:33)
[2017-10-17] MEDS: THIAMINE HCL 100 MG TAB PO SCH (09:15)
[2017-10-17] MEDS: OSELTAMIVIR 6 MG/ML UDSYR PO SCH ×2 (09:15→14:17)
--- NOTE | 2017-10-17 15:17 | ASMTCMCOM ---
CM Note CM Note Notes: CM consulted Nirmal, the acidity tester to assist on assigning someone to be power of on site coordinator. Nirmal spoke to daughter, ex and a friend to charisma out who is interested in taking on the role. Pts daughter has been idenitifed to be power of on site coordinator. Ex does not want to take on that role. CM spoke w/ daughter regarding d/c POC. The [facility] has accepted this far. Daughter would like pt to go to [facility] when medically stable. CM to follow. Plan: [facility] Date Signed: 10/17/2017 03:16 PM Electronically Signed By:SILVIO Cole
--- NOTE | 2017-10-17 16:19 | HOSPPROG ---
Hospitalist Progress Note Assessment/Plan: # encephalopathy, acute on chronic - he continues to slowly improve - not clear exactly his baseline, but he has declined over the past year - advancing diet today # CAP - s/p azith - cont zosyn for now abx D#6 - check CXR tomorrow # influenza A, rhinovirus/enterovirus + - tamiflu # sepsis - d/t pna; resolved # AHRF - d/t pna; # chronic dysphagia d/t XRT in setting of tongue cancer # etOH abuse and w/d - no withdrawal currently # anemia - likely Fe defic and etOH; follow, consider Fe replacement # dispo - to [facility], approx 2 more days based on his mental status; daughter Leticia now [place], ex- also involved Subjective: more alert; says he feels better Objective: Vital Signs Temp Pulse Resp BP Pulse Ox 36.8 C 65 24 H 166/80 H 99 10/17/17 15:31 10/17/17 15:31 10/17/17 15:31 10/17/17 15:31 10/17/17 15:31 Laboratory Results 10/17/17 05:05 10/17/17 05:05 10/16/17 10/17/17 10/18/17 05:59 05:59 05:59 Intake Total 1050 3077 Output Total 154 125 Balance 1050 2923 -125 PT 16.9 SEC (12.0-15.0) H 10/12/17 10:55 INR 1.36 (0.83-1.16) H 10/12/17 10:55 - Physical Exam Constitutional: unkempt Cardiovascular: regular rate and rhythym, no murmur, rub, or gallop Respiratory: no respiratory distress, other (L sided bronchial sounds), No clear to auscultation, No reduced air movement Gastrointestinal: soft, non-tender abdomen, no palpable masses ICD10 Worksheet Patient Problems: Problems Problem Status Onset chronic disease mgmt/transitional care Acute PTSD (post-traumatic stress disorder) Acute Severe major depression Acute Alcohol withdrawal Acute Pneumonia Acute Influenza Acute
[2017-10-18] MEDS: PIPERACILLIN/TAZO 4.5 GM/DEX 100 ML IV SCH ×4 (00:14→17:33)
[2017-10-18] MEDS: guaiFENesin 200 MG/10 ML UDL PO SCH ×4 (04:49→21:38)
[2017-10-18] MEDS: LEVOTHYROXINE 25 MCG TAB PO SCH (04:49)
[2017-10-18] MEDS: IPRATROPIUM/ALBUTEROL 3 ML DEYVIAL IH SCH ×4 (06:01→21:51)
[2017-10-18] MEDS: ENOXAPARIN 40 MG/0.4 ML SYR SC SCH (09:00)
[2017-10-18] MEDS: FOLIC ACID 1 MG TAB PO SCH (09:01)
[2017-10-18] MEDS: THIAMINE HCL 100 MG TAB PO SCH (09:01)
[2017-10-18] MEDS: TAMSULOSIN HCL 0.4 MG CAP PO SCH ×2 (09:01→21:48)
[2017-10-18] MEDS: LACTULOSE 20 GM/30 ML UDCUP PO SCH ×3 (09:02→21:48)
[2017-10-18] MEDS: OSELTAMIVIR 6 MG/ML UDSYR PO SCH (09:03)
--- NOTE | 2017-10-18 09:04 | HOSPPROG ---
Hospitalist Progress Note Assessment/Plan: # encephalopathy, acute on chronic - suspect related to acute infection, unclear baseline. he continues to slowly improve, still a bit somnolent, found on floor yesterday # CAP - s/p azith - cont zosyn for now D#7, can probably d/c tomorrow - repeat CXR this am personally reviewed / interpreted- persistent bibasilar infiltrates, ?atelectasis # influenza A, rhinovirus/enterovirus + - tamiflu # sepsis - d/t pna; resolved # AHRF - d/t pna; # chronic dysphagia d/t XRT in setting of tongue cancer -modified diet, speech following # etOH abuse and w/d - no withdrawal currently # anemia - likely Fe defic and etOH; follow, consider Fe replacement # dispo - to [facility], defer tx today due to ongoing encephalopathy and fall yesterday, daughter Leticia now LEXIE, ex- also involved Subjective: Pt a bit somnolent, though awakens to verbal stimuli, answers questions. Denies CP or SOB, coughing a little. No fevers. Objective: Vital Signs Temp Pulse Resp BP Pulse Ox 36.4 C 72 18 136/75 H 94 10/18/17 07:18 10/18/17 07:18 10/18/17 07:18 10/18/17 07:18 10/18/17 07:18 Laboratory Results 10/17/17 05:05 10/17/17 05:05 10/17/17 10/18/17 10/19/17 05:59 05:59 05:59 Intake Total 3077 1255 Output Total 154 225 Balance 2923 1030 PT 16.9 SEC (12.0-15.0) H 10/12/17 10:55 INR 1.36 (0.83-1.16) H 10/12/17 10:55 - Physical Exam Constitutional: no apparent distress Eyes: PERRL Ears, Nose, Mouth, Throat: moist mucous membranes Cardiovascular: regular rate and rhythym Respiratory: no respiratory distress, inspiratory crackles Gastrointestinal: normoactive bowel sounds, soft, non-tender abdomen Skin: warm Musculoskeletal: full muscle strength Psychiatric: encephalopathic ICD10 Worksheet Patient Problems: Problems Problem Status Onset Influenza Acute Pneumonia Acute chronic disease mgmt/transitional care Acute Alcohol withdrawal Acute PTSD (post-traumatic stress disorder) Acute Severe major depression Acute
[2017-10-18] MEDS: GABAPENTIN 250 MG/5 ML 30 ML BOTTLE PO SCH ×3 (10:04→21:38)
[2017-10-18] MEDS: NS 1,000 ML IV SCH ×2 (11:33→17:33)
--- NOTE | 2017-10-18 14:57 | WOCRNPDOC ---
WOCRN Advanced Assessment Note - Skin Integrity Problem, Advanced Assess Lower Coccyx Dressing Type: Allevyn Life Dressing Description: Soiled (removed after patient stooled) Exudate Amount: None Integumentary Issue Intervention: Barrier Cream Applied (Calazime) Daya Wound Tissue: Blanching, Intact Daya Wound Swelling: None Wound Bed Color: [place] (pale) Wound Bed Constitution: Red/[place] - Non Granular Tissue Site Odor: None Site Measurement - Head-to-Toe Length X Width X Depth (cm): 1cmx0.4cmx0.1cm Skin Integrity Problem Comment: Linear wound noted directly over coccyx w/ partial-thickness tissue loss. Possible combination of moisture-associated skin damage and pressure injury, though wound is blanching throughout. Daya-wound skin is intact and blanching. Because patient is incontinent of stool, and there is also a component of moisture-rleated injury to this tissue, recommend applying Calazime cream BID and with pericare. Nursing initiated a specialty pressure-relieving bed, and this is fine to continue.
--- NOTE | 2017-10-18 15:04 | ASMTLACE ---
MEDARDOE Length of stay for Answers: 7-13 days current admission Acuity / Level of Answers: Yes Care: Did the patient have an inpatient admission? Comorbidities - select Answers: Other all that apply # of Emergency department Answers: 9-12 visits in the last 6 months Social determinants Answers: History of substance abuse (ETHO, street drugs, prescription drugs, etc.) Homelessness (street, retirement) Mental health diagnosis (anxiety, depression, pers onality disorders, etc.) Score: 23 Date Signed: 10/18/2017 03:03 PM Electronically Signed By:SILVIO Cole
[2017-10-19] MEDS: PIPERACILLIN/TAZO 4.5 GM/DEX 100 ML IV SCH ×2 (00:43→05:46)
[2017-10-19] MEDS: guaiFENesin 200 MG/10 ML UDL PO SCH ×4 (05:45→21:27)
[2017-10-19] MEDS: LEVOTHYROXINE 25 MCG TAB PO SCH (05:46)
[2017-10-19] MEDS: IPRATROPIUM/ALBUTEROL 3 ML DEYVIAL IH SCH ×4 (06:01→20:09)
[2017-10-19] MEDS: ENOXAPARIN 40 MG/0.4 ML SYR SC SCH (09:31)
[2017-10-19] MEDS: TAMSULOSIN HCL 0.4 MG CAP PO SCH ×2 (09:31→21:27)
[2017-10-19] MEDS: THIAMINE HCL 100 MG TAB PO SCH (09:31)
[2017-10-19] MEDS: FOLIC ACID 1 MG TAB PO SCH (09:31)
[2017-10-19] MEDS: LACTULOSE 20 GM/30 ML UDCUP PO SCH ×3 (09:32→21:28)
[2017-10-19] MEDS: GABAPENTIN 250 MG/5 ML 30 ML BOTTLE PO SCH ×3 (09:33→21:27)
[2017-10-19 09:57] LABS: PLATELET COUNT 496 10^3/uL (150-400)
--- NOTE | 2017-10-19 15:30 | ASMTCMCOM ---
CM Note CM Note Notes: Pt is requesting CM to call ex Izzy to inquire about his car and his multi-colored jacket. CM left Izzy a message and requested that Izzy touch base w/ pt or call CM back. The plan remains the same. Pt will d/c to [facility] when medically stable. [facility] to follow[facility] Date Signed: 10/19/2017 03:29 PM Electronically Signed By:SILVIO Cole
--- NOTE | 2017-10-19 16:25 | HOSPPROG ---
Hospitalist Progress Note Assessment/Plan: Assessment: 72 yo M p/w community acquired pneumonia c/b acute encephalopathy Plan: # Encephalopathy, acute on chronic. Evidenced by global brain dysfunction characterized by somnolence, confusion, disorientation, all of which are acute decline from baseline - slow improvements, no more falls, cont to monitor # CAP. POA, likely multifactoral (bacterial and viral) w/ positive flu but CXR more suggestive of bacterial process w/ LLL air space disease (personally interpreted) - s/p azith, and 7 days of zosyn # Atelectasis and pleural effusions. Acute, likely 2/2 PNA and immobility - IS # influenza A, rhinovirus/enterovirus. 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 High risk, lovenox 40 Code. Leticia MDPOA, Full Dispo. ADD uncertain, cognitively remains below baseline, [place] when stable Subjective: patient unable to recall why he is here, denies pain Objective: Vital Signs Temp Pulse Resp BP Pulse Ox 36.6 C 75 16 155/99 H 94 10/19/17 15:25 10/19/17 15:50 10/19/17 15:50 10/19/17 15:25 10/19/17 15:50 Laboratory Results 10/19/17 09:49 10/19/17 09:49 10/18/17 10/19/17 10/20/17 05:59 05:59 05:59 Intake Total 1255 2600 Output Total 225 Balance 1030 2600 PT 16.9 SEC (12.0-15.0) H 10/12/17 10:55 INR 1.36 (0.83-1.16) H 10/12/17 10:55 - Physical Exam Constitutional: no apparent distress, not in pain, chronically ill appearing, cachectic, No uncomfortable Cardiovascular: regular rate and rhythym, no murmur, rub, or gallop, No tachycardia, No edema Respiratory: reduced air movement (bilat bases), inspiratory crackles, No expiratory wheeze, No bronchial breath sounds, No respiratory distress Gastrointestinal: normoactive bowel sounds, soft, non-tender abdomen, no palpable masses Neurologic: sensation intact bilaterally, other (AAOx1 only), No weakness ( motor 5/5 bilat LE), No facial droop Psychiatric: not anxious, encephalopathic, poor insight, poor judgement, poor memory, No agitated ICD10 Worksheet Patient Problems: Problems Problem Status Onset chronic disease mgmt/transitional care Acute PTSD (post-traumatic stress disorder) Acute Severe major depression Acute Alcohol withdrawal Acute Pneumonia Acute Influenza Acute
[2017-10-20 05:46] LABS: PLATELET COUNT 541 10^3/uL (150-400)
[2017-10-20] MEDS: IPRATROPIUM/ALBUTEROL 3 ML DEYVIAL IH SCH ×4 (05:46→21:40)
[2017-10-20] MEDS: guaiFENesin 200 MG/10 ML UDL PO SCH ×4 (05:47→22:25)
[2017-10-20] MEDS: LEVOTHYROXINE 25 MCG TAB PO SCH (05:47)
[2017-10-20] MEDS: LACTULOSE 20 GM/30 ML UDCUP PO SCH (08:38)
[2017-10-20] MEDS: GABAPENTIN 250 MG/5 ML 30 ML BOTTLE PO SCH ×3 (08:38→22:25)
[2017-10-20] MEDS: ENOXAPARIN 40 MG/0.4 ML SYR SC SCH (08:38)
[2017-10-20] MEDS: THIAMINE HCL 100 MG TAB PO SCH (08:39)
[2017-10-20] MEDS: FOLIC ACID 1 MG TAB PO SCH (08:39)
[2017-10-20] MEDS: TAMSULOSIN HCL 0.4 MG CAP PO SCH ×2 (08:39→22:25)
--- NOTE | 2017-10-20 13:12 | ASMTCMCOM ---
CM Note CM Note Notes: Izzy patient's states patient's car is at her house. She does not know where his multicolored jacket is but thinks it is at the hospital with the things he came in with. Patient's d/c plan remains [facility] when he is ready for d/c. Patient's cognitive function is below baseline at the current time. Dr. Lemus giving patient another day for recovery with d/c likely in the next couple of days. CM will follow. Date Signed: 10/20/2017 01:12 PM Electronically Signed By:Salena Jones LCSW
[2017-10-20] MEDS ORDERED: LOPERAMIDE HCL 2 MG CAP PO PRN (15:32)
--- NOTE | 2017-10-20 16:34 | HOSPPROG ---
Hospitalist Progress Note Assessment/Plan: Assessment: 72 yo M p/w community acquired pneumonia c/b acute encephalopathy Plan: # Encephalopathy, acute on chronic. Evidenced by global brain dysfunction characterized by somnolence, confusion, disorientation, all of which are acute decline from baseline - slow improvements, no more falls but patient w/ an episode of bowel incontinence today # Diarrhea. Acute, new problem, further w/u indicated. Given recent Abx, at risk for CDiff - get CDiff PCR - if neg, can give imodium - would not recommend discharge today until this has been addressed/resolved # CAP. POA, likely multifactoral (bacterial and viral) w/ positive flu but CXR more suggestive of bacterial process w/ LLL air space disease (personally interpreted) - s/p azith, and 7 days of zosyn # Atelectasis and pleural effusions. Acute, likely 2/2 PNA and immobility - IS # influenza A, rhinovirus/enterovirus. Likely contributing to above - s/p tamiflu # sepsis - POA, evidenced by qSOFA 2 (encephalopathy + tachypnea) w/ autonomic dysregulation and end-organ failure (resp failure, encephalopathy, metabolic acidosis/ischemia) in setting of infxn, resolved # AHRF - POA, evidenced by SpO2 85% on RA, objective tachypnea (RR 40+), struggled/labored breathing, d/t pna and requiring up to 5LPM high flow - ongoing 2LPM o2 requirement # Acute metabolic acidosis - 2/2 lactic acid, resolved w/ IVF # chronic dysphagia d/t XRT in setting of tongue cancer # etOH abuse and acute alcohol withdraw - resolved # anemia - likely Fe defic and etOH, stable 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 High risk, lovenox 40 Code. Leticia MDPOA, Full Dispo. ADD 2/2 vs. 2/3, cognitively remains below baseline, [place] when stable Subjective: patient w/ diarrhea, standing naked from waist down and lost bowel control Objective: Vital Signs Temp Pulse Resp BP Pulse Ox 36.8 C 81 18 162/95 H 93 10/20/17 16:00 10/20/17 16:00 10/20/17 16:00 10/20/17 16:00 10/20/17 16:00 Laboratory Results 10/20/17 04:41 10/20/17 04:41 10/19/17 10/20/17 10/21/17 05:59 05:59 05:59 Intake Total 2600 340 Balance 2600 340 PT 16.9 SEC (12.0-15.0) H 10/12/17 10:55 INR 1.36 (0.83-1.16) H 10/12/17 10:55 - Physical Exam Constitutional: no apparent distress, not in pain, chronically ill appearing, No uncomfortable Cardiovascular: regular rate and rhythym, no murmur, rub, or gallop, No edema Respiratory: inspiratory crackles (bilat bases), No reduced air movement, No expiratory wheeze, No bronchial breath sounds, No respiratory distress Gastrointestinal: normoactive bowel sounds, soft, non-tender abdomen, no palpable masses, No guarding, No distension Musculoskeletal: other (RUE amputation) Neurologic: AAOx3, No facial droop Psychiatric: not anxious, encephalopathic, poor memory, other (concentration 0/7 ), No agitated ICD10 Worksheet Patient Problems: Problems Problem Status Onset Influenza Acute Pneumonia Acute chronic disease [facility]/transitional care Acute Alcohol withdrawal Acute PTSD (post-traumatic stress disorder) Acute Severe major depression Acute
[2017-10-20] MEDS ORDERED: hydrALAZINE 20 MG/ML VIAL IVP PRN (22:16)
[2017-10-21] MEDS: MELATONIN 3 MG TAB PO PRN (02:30)
[2017-10-21 05:24] LABS: PLATELET COUNT 504 10^3/uL (150-400)
[2017-10-21] MEDS: IPRATROPIUM/ALBUTEROL 3 ML DEYVIAL IH SCH ×4 (05:57→21:28)
[2017-10-21] MEDS: guaiFENesin 200 MG/10 ML UDL PO SCH ×4 (06:04→22:12)
[2017-10-21] MEDS: LEVOTHYROXINE 25 MCG TAB PO SCH (06:04)
[2017-10-21] MEDS: ENOXAPARIN 40 MG/0.4 ML SYR SC SCH (08:42)
[2017-10-21] MEDS: FOLIC ACID 1 MG TAB PO SCH (08:43)
[2017-10-21] MEDS: GABAPENTIN 250 MG/5 ML 30 ML BOTTLE PO SCH ×3 (08:43→22:12)
[2017-10-21] MEDS: THIAMINE HCL 100 MG TAB PO SCH (08:43)
[2017-10-21] MEDS: TAMSULOSIN HCL 0.4 MG CAP PO SCH ×2 (08:43→22:13)
[2017-10-21] MEDS: LISINOPRIL 40 MG TAB PO SCH (08:45)
--- NOTE | 2017-10-21 16:45 | HOSPPROG ---
Hospitalist Progress Note Assessment/Plan: Assessment: 72 yo M p/w community acquired pneumonia c/b acute encephalopathy Plan: # Encephalopathy, acute on chronic. Evidenced by global brain dysfunction characterized by somnolence, confusion, disorientation, all of which are acute decline from baseline - slow improvements, no more falls but patient remains disoriented today # Diarrhea. Acute, new problem, further w/u indicated. Given recent Abx, at risk for CDiff - CDiff PCR neg - would not recommend discharge today until this is ongoing # CAP. POA, likely multifactoral (bacterial and viral) w/ positive flu but CXR more suggestive of bacterial process w/ LLL air space disease (personally interpreted) - s/p azith, and 7 days of zosyn # Atelectasis and pleural effusions. Acute, likely 2/2 PNA and immobility - IS # influenza A, rhinovirus/enterovirus. Likely contributing to above - s/p tamiflu # sepsis - POA, evidenced by qSOFA 2 (encephalopathy + tachypnea) w/ autonomic dysregulation and end-organ failure (resp failure, encephalopathy, metabolic acidosis/ischemia) in setting of infxn, resolved # AHRF - POA, evidenced by SpO2 85% on RA, objective tachypnea (RR 40+), struggled/labored breathing, d/t pna and requiring up to 5LPM high flow - ongoing 2LPM o2 requirement # Acute metabolic acidosis - 2/2 lactic acid, resolved w/ IVF # chronic dysphagia d/t XRT in setting of tongue cancer - I think patient is confusing oral discomfort for a perioral infxn, as there are no abnl on exam # etOH abuse and acute alcohol withdraw - resolved # anemia - likely Fe defic and etOH, stable 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 High risk, lovenox 40 Code. Leticia MDPOA, Full Dispo. ADD 2/3, cognitively remains below baseline, [place] when stable Subjective: patient thinks he might have a R mandible infxn, ongoing diarrhea Objective: Vital Signs Temp Pulse Resp BP Pulse Ox 36.7 C 86 12 132/83 H 94 10/21/17 14:45 10/21/17 16:11 10/21/17 16:11 10/21/17 14:45 10/21/17 16:11 Laboratory Results 10/21/17 04:26 10/21/17 04:26 10/20/17 10/21/17 10/22/17 05:59 05:59 05:59 Intake Total 340 0 Output Total 350 Balance 340 -350 PT 16.9 SEC (12.0-15.0) H 10/12/17 10:55 INR 1.36 (0.83-1.16) H 10/12/17 10:55 - Physical Exam Constitutional: no apparent distress, not in pain, chronically ill appearing, No uncomfortable Ears, Nose, Mouth, Throat: other (poor dentition but no oral tenderness/erythema /ulceration, no mandibular tenderness/swelling) Cardiovascular: regular rate and rhythym, no murmur, rub, or gallop, No edema Respiratory: no respiratory distress, inspiratory crackles, No expiratory wheeze , No bronchial breath sounds, No respiratory distress Gastrointestinal: normoactive bowel sounds, soft, non-tender abdomen, no palpable masses, No distension Musculoskeletal: other (RUE amp) Neurologic: other (AAOx1 (person only) ), No facial droop Psychiatric: not anxious, flat affect, poor memory, No agitated ICD10 Worksheet Patient Problems: Problems Problem Status Onset chronic disease mgmt/transitional care Acute PTSD (post-traumatic stress disorder) Acute Severe major depression Acute Alcohol withdrawal Acute Pneumonia Acute Influenza Acute
[2017-10-22] MEDS: IPRATROPIUM/ALBUTEROL 3 ML DEYVIAL IH SCH ×4 (05:09→21:49)
[2017-10-22] MEDS: LEVOTHYROXINE 25 MCG TAB PO SCH (05:27)
[2017-10-22] MEDS: guaiFENesin 200 MG/10 ML UDL PO SCH ×4 (05:28→20:19)
[2017-10-22] MEDS: GABAPENTIN 250 MG/5 ML 30 ML BOTTLE PO SCH ×3 (07:51→20:19)
[2017-10-22] MEDS: LISINOPRIL 40 MG TAB PO SCH ×2 (07:53→11:44)
[2017-10-22] MEDS: TAMSULOSIN HCL 0.4 MG CAP PO SCH ×2 (07:55→20:19)
[2017-10-22] MEDS: THIAMINE HCL 100 MG TAB PO SCH (07:55)
[2017-10-22] MEDS: FOLIC ACID 1 MG TAB PO SCH (07:56)
[2017-10-22] MEDS: ENOXAPARIN 40 MG/0.4 ML SYR SC SCH (08:01)
--- NOTE | 2017-10-22 09:33 | PDIAF ---
- Diagnosis Diagnosis: Pneumonia, Flu, Resp Failure, Sepsis Code Status: Full Code - Medication Management Discharge Medications: Medications to Continue on Transfer Herbals/Supplements -Info Only 1 ea PO AD 10/09/16 [Last Taken Unknown] Tamsulosin HCl [Flomax 0.4 MG (*)] 0.4 mg PO BID #0 cap 10/28/16 [Last Taken Unknown] Levothyroxine Sodium [Synthroid] 25 mcg PO DAILY #14 tablet 09/22/17 [Last Taken Unknown] Lisinopril [Zestril 40 mg (*)] 40 mg PO DAILY #14 tab 09/22/17 [Last Taken Unknown] OLANZapine [ZyPREXA 2.5 mg (*)] 5 mg PO HS 10/12/17 [Last Taken Unknown] Acetaminophen [Tylenol 325mg (*)] 650 mg PO Q4HRS PRN tab 10/22/17 [Last Taken Unknown] Folic Acid [Folic Acid 1 MG (*)] 1 mg PO DAILY tab 10/22/17 [Last Taken Unknown ] Gabapentin [Neurontin Oral Liquid] 100 mg PO TID bottle 10/22/17 [Last Taken Unknown] Loperamide HCl [Imodium 2 mg (*)] 2 mg PO QID PRN cap 10/22/17 [Last Taken Unknown] Melatonin [Melatonin 3 MG (*)] 3 mg PO HS tab 10/22/17 [Last Taken Unknown] Thiamine HCl [Vitamin B-1] 100 mg PO DAILY tab 10/22/17 [Last Taken Unknown] Detention Antibiotics: NA Discharge Medications: Refer to the Discharge Home Medication list for PRN reason. PICC Care - Routine: N/A - Orders Services needed: Registered Nurse, Certified Project Scheduler, Master Glass Handler , Physical Therapy, Occupational Therapy, Speech Language Pathologist (HEALTH CLUB MANAGER and Cog therapy) Isolation Type: Droplet Isolation Oxygen: NA Diet Texture: Dysphagia 2 - Mechanically Altered - Chopped, Ground, Thin Liquids , Meds Crushed in Puree Angel: Not applicable - Follow Up Care Current Providers and Referrals: Chel Tatum NP [Primary Care Provider] - 3 days of d/c SNF/Rehab
--- NOTE | 2017-10-22 09:47 | PDDCSUM ---
Discharge Summary Discharge Summary: DISCHARGE SUMMARY FOLLOW-UP ITEMS: Reestablish primary care after discharge from half-way facility Outpatient psychiatry referral DATE OF ADMISSION: 10/12/2017 DATE OF DISCHARGE: 10/22/2017 DISCHARGE DIAGNOSES: 1. Sepsis present on admission 2. Influenza A, enterovirus, rhinovirus, present on admission 3. Possible aspiration pneumonia present on admission 4. Acute hypoxic respiratory failure 5. Acute metabolic acidosis 6. Acute on chronic encephalopathy 7. Acute diarrhea 8. Acute atelectasis and pleural effusions 9. Chronic alcohol abuse and acute alcohol withdrawal 10. Anemia, multifactorial 11. Chronic dysphagia with history of tongue cancer 12. Chronic hypertension CONSULTATIONS: Pulmonary critical care PROCEDURES / IMAGIN10/18/2017 left greater than right consolidations on chest x-ray 10/15/[address] demonstrating sinusitis, cerebral atrophy CHIEF COMPLAINT: Cough, lightheadedness SUBJECTIVE: Patient is feeling well at time discharge, he continues to be concerned about his dysphagia PHYSICAL EXAM ON DISCHARGE: Systolic blood pressure 140-160, heart rate 80, room air, afebrile, alert awake oriented x1, cooperative and follows commands, dyskinetic movements of his mouth , no inspiratory crackles or expiratory wheezes in the anterior lung mar, some faint inspiratory crackles in the bilateral bases laterally, heart rhythm is regular, right upper extremity amputation comma motor strength 5/5 bilateral lower extremities, left upper extremity, facial symmetry, abdomen is soft nontender nondistended with bowel sounds present, no oral lesions, tacky mucous membranes, no swelling or erythema or tenderness of the right cheek or jaw LABS ON DISCHARGE: White blood cell count 5900, hemoglobin 12.2, platelets 178757, creatinine 0.6, potassium 3.9, glucose 85, liver panel unremarkable, B12 is greater than a 1000 , TSH 2.1 HOSPITAL COURSE BY PROBLEM: 1. Sepsis. Present on admission, evidenced by Q sofa score of 2 with encephalopathy and tachypnea, with autonomic dysregulation end-organ failure in the setting of infection, notably respiratory failure, encephalopathy, metabolic acidosis/ischemia. He was treated empirically with IV fluids and antibiotics comma in the step-down unit. He stabilizes transfer to the med surge unit. 2. Possible aspiration Pneumonia. Present on admission, evidenced by bibasilar infiltrates, potentially multifactorial in the setting of numerous viral infections as well as possible bacterial component resulting in his consolidations, patient has extensive history of dysphagia and was encephalopathic from severe illness, and is certainly possible that he may have aspirated resulting in his bacterial component of pneumonia. He received 7 days of Zosyn as well as azithromycin and does not require further antibiotics. His leukocytosis has resolved. He has been afebrile. The patient was seen extensively by speech therapy, he was placed on swallow precautions, he will continue on these at discharge. The patient has chronic dysphagia secondary to radiation treatment to his mouth comma for history of tongue cancer. The patient has limited insight into his dysphagia, and requires monitoring and assistance with all oral intake. He consistently reports that he has paresthesias on the right side of his mouth and once he is evaluated comma evaluation on the day of discharge demonstrated no lesions, no swelling or erythema, and no tenderness. I do not believe that he needs a formal outpatient dental exam at this time. 3. Influenza a, rhinovirus, enterovirus. Patient had respiratory viral panel which was positive for all 3 of these viruses, patient has heavy exposure given his homeless situation, he was treated supportively as well as with Tamiflu. 4. Acute hypoxic respiratory failure. Present on admission, evidenced by SpO2 of 85% on room air, objective tachypnea with respiratory rate of greater than 40 , struggled and labored breathing, all of which was due to pneumonia requiring up to 5 liters/minute high-flow oxygen, and was eventually weaned as his pneumonia resolved. He is on room air time discharge. 5. Acute atelectasis and pleural effusions. Most likely secondary to pneumonia with parapneumonic effusions as well as immobility with atelectasis. He was placed on incentive spirometer. Respiratory status was stable at discharge. Encourage mobility. 6. Acute metabolic acidosis. Secondary to lactic acid in the setting of sepsis , resolved with IV fluids and treatment of sepsis. 7. Acute on chronic encephalopathy. Evidenced by global brain dysfunction characterized as somnolence, confusion, disorientation, all of which are reportedly acute changes from his baseline, although I suspect the patient has an impaired baseline with his history of homelessness, and a questionable baseline functional status. The patient does have an ex and a daughter who can be contacted locally and his daughter is MD OWEN. There good resources to gauge how close the patient is to his baseline. At the time of discharge, the patient is oriented times person only, but this has remained fairly stable for the past several days prior to discharge. He is cooperative and follows commands, and he has not had any falls or any misbehavior over the past 24 hr prior to discharge. I recommend ongoing use of his home dosage of Zyprexa at bedtime, as well as scheduled melatonin at night. Recommend avoiding other mind -altering substances. We recommended continuing use of folic acid and thiamine given his history of poor nutrition and chronic alcoholism. It is unclear as to why the patient has an element of tardive dyskinesia, although he is on Zyprexa at baseline. I recommend that he be established with an outpatient psychiatrist to further evaluate the indication for Zyprexa, as well as consider the use of Cogentin or changing to a different agent for the stability of the patient's mental health. I placed a referral in the patient's discharge paperwork. 8. Chronic alcohol abuse and acute alcohol withdrawal. The patient experienced acute alcohol withdrawal on presentation, and this was treated with [facility] protocol. The patient is no longer experiencing any alcohol withdrawal time discharge and he is not requesting any alcohol. 9. Chronic anemia. There is most likely an iron deficient component as well as alcohol marrow suppression, the hemoglobin remained stable at discharge, can be followed up again as an outpatient. 10. Chronic hypertension. The patient is chronically on lisinopril, this was held early in his hospitalization in the setting of sepsis, is been re- initiated with good affect. DISCHARGE MEDICATIONS: Please see official discharge medication reconciliation sheet in chart , continue all home medications with the addition of at bedtime melatonin, as needed Tylenol, folic acid, thiamine, adjustment of gabapentin to liquid. DISCHARGE INSTRUCTIONS: Please schedule follow-up with Dr. Schmitz for psychiatry as an outpatient. TIME SPENT: Greater than 30 minutes were spent on direct patient care, as well as discharge planning and preparation.
--- NOTE | 2017-10-22 11:09 | ASMTCMCOM ---
CM Note CM Note Notes: Spoke w/Belle at [facility] re; dc poc. Belle states they were not aware pt was coming today and pt's dtr Leticia who is MDPOA as pt is not decisional, has not yet signed the paperwork. Belle tells CM that Leticia is out of town and furthermore that since they did not know he was coming, they do not have a bed for him until Tuesday. CM notified MD and called pt's dtr to leave her a message. DC Plan: [facility] Date Signed: 10/22/2017 11:09 AM Electronically Signed By:Carolyn Flanagan RN
[2017-10-22] MEDS: MELATONIN 3 MG TAB PO PRN (20:19)
[2017-10-23] MEDS: IPRATROPIUM/ALBUTEROL 3 ML DEYVIAL IH SCH ×4 (06:15→23:06)
[2017-10-23] MEDS: guaiFENesin 200 MG/10 ML UDL PO SCH (06:43)
[2017-10-23] MEDS: LEVOTHYROXINE 25 MCG TAB PO SCH (06:43)
[2017-10-23] MEDS: TAMSULOSIN HCL 0.4 MG CAP PO SCH ×2 (08:11→21:26)
[2017-10-23] MEDS: GABAPENTIN 250 MG/5 ML 30 ML BOTTLE PO SCH ×3 (08:11→21:26)
[2017-10-23] MEDS: LISINOPRIL 40 MG TAB PO SCH (08:11)
[2017-10-23] MEDS: FOLIC ACID 1 MG TAB PO SCH (08:12)
[2017-10-23] MEDS: THIAMINE HCL 100 MG TAB PO SCH (08:12)
[2017-10-23] MEDS: ENOXAPARIN 40 MG/0.4 ML SYR SC SCH (08:14)
[2017-10-23] MEDS ORDERED: guaiFENesin 200 MG/10 ML UDL PO PRN (12:00)
--- NOTE | 2017-10-23 16:24 | HOSPPROG ---
Hospitalist Progress Note Assessment/Plan: Assessment: 72 yo M p/w community acquired pneumonia c/b acute on chronic encephalopathy Plan: # Encephalopathy, acute on chronic. Evidenced by global brain dysfunction characterized by somnolence, confusion, disorientation, all of which are acute decline from baseline - slow improvements, no more falls but patient remains disoriented today and given his lengthy hx of alcoholism and underlying mental health disorder, I am not optimistic that his cognition will substantially improve # Diarrhea. Resolved, now constipated, avoid further immodium # CAP. POA, likely multifactoral (bacterial and viral) w/ positive flu but CXR more suggestive of bacterial process w/ LLL air space disease - s/p azith, and 7 days of zosyn # Atelectasis and pleural effusions. Acute, likely 2/2 PNA and immobility - IS # influenza A, rhinovirus/enterovirus. Likely contributing to above - s/p tamiflu # sepsis - POA, evidenced by qSOFA 2 (encephalopathy + tachypnea) w/ autonomic dysregulation and end-organ failure (resp failure, encephalopathy, metabolic acidosis/ischemia) in setting of infxn, resolved # AHRF - POA, evidenced by SpO2 85% on RA, objective tachypnea (RR 40+), struggled/labored breathing, d/t pna and requiring up to 5LPM high flow - ongoing 2LPM o2 requirement # Acute metabolic acidosis - 2/2 lactic acid, resolved w/ IVF # chronic dysphagia d/t XRT in setting of tongue cancer - I think patient is confusing oral discomfort for a perioral infxn, as there are no abnl on exam # etOH abuse and acute alcohol withdraw - resolved - cont folate/thiamine at discharge # mental health disorder - specific disease process unclear, on zyprexa scheduled, patient is able to communicate that he has had contact with P in past, but the rest of his explanation about his underlying mental health issues is so scattered that it seems unreliable - has some e/o tardive dyskinesia, would rec holding off on cogentin due to his otherwise slowed cognitive and physical exam, but rec outpt mental health eval [facility] after discharge - Dr. Karolina Schmitz could be good initial contact for him since she sees patients at SNF, and patient will need to establish while he is at [facility] # anemia - likely Fe defic and etOH, stable Diet. MONKEY BREEDER modified PPx. High risk, lovenox 40 Code. [facility], Full Dispo. ADD uncertain, cognitively remains below baseline, [facility] does not have necessary signature for transfer from [facility] b/c she is out of town, I have asked case mgmt to determine whether they can fax her papers to sign, [facility] also does not have a bed this weekend Subjective: patient cooperative with wearing pants today, no bowel movements Objective: Vital Signs Temp Pulse Resp BP Pulse Ox 36.6 C 72 18 171/94 H 91 L 10/23/17 08:00 10/23/17 12:38 10/23/17 12:38 10/23/17 08:00 10/23/17 12:38 Laboratory Results 10/21/17 04:26 10/21/17 04:26 10/22/17 10/23/17 10/24/17 05:59 05:59 05:59 Intake Total 400 900 Balance 400 900 PT 16.9 SEC (12.0-15.0) H 10/12/17 10:55 INR 1.36 (0.83-1.16) H 10/12/17 10:55 - Pending Discharge Pending Discharge Within 48 Hours: Yes Pending Discharge Date: 10/25/17 Pending Discharge Time: 11:00 - Physical Exam Constitutional: no apparent distress, not in pain, chronically ill appearing, No uncomfortable Ears, Nose, Mouth, Throat: other (tardive movements of lips, tongue, no oral lesions) Cardiovascular: regular rate and rhythym, no murmur, rub, or gallop, No edema Respiratory: inspiratory crackles (bilat bases), No expiratory wheeze, No bronchial breath sounds, No respiratory distress Gastrointestinal: normoactive bowel sounds, soft, non-tender abdomen, no palpable masses, No distension Musculoskeletal: other (RUE amp) Neurologic: sensation intact bilaterally, other (AAOx2 (person and place)), No weakness Psychiatric: not anxious, encephalopathic, flat affect, poor insight, poor memory, No agitated ICD10 Worksheet Patient Problems: Problems Problem Status Onset chronic disease mgmt/transitional care Acute PTSD (post-traumatic stress disorder) Acute Severe major depression Acute Alcohol withdrawal Acute Pneumonia Acute Influenza Acute
[2017-10-24] MEDS: LEVOTHYROXINE 25 MCG TAB PO SCH (05:49)
[2017-10-24] MEDS: IPRATROPIUM/ALBUTEROL 3 ML DEYVIAL IH SCH ×4 (06:23→20:16)
[2017-10-24] MEDS: THIAMINE HCL 100 MG TAB PO SCH (09:11)
[2017-10-24] MEDS: TAMSULOSIN HCL 0.4 MG CAP PO SCH ×2 (09:11→21:38)
[2017-10-24] MEDS: LISINOPRIL 40 MG TAB PO SCH (09:11)
[2017-10-24] MEDS: ENOXAPARIN 40 MG/0.4 ML SYR SC SCH (09:12)
[2017-10-24] MEDS: FOLIC ACID 1 MG TAB PO SCH (09:13)
[2017-10-24] MEDS: GABAPENTIN 250 MG/5 ML 30 ML BOTTLE PO SCH ×3 (09:34→21:38)
--- NOTE | 2017-10-24 12:13 | ASMTCMCOM ---
CM Note CM Note Notes: Spoke with [facility] about patient being ready for d/c. Chucky states they have to have someone to sign all the paperwork for patient and patient's daughter, Leticia is the named proxy for him. Leticia is out of the country and will not return until Tuesday of this week. In addition, they will need a new PASRR which was completed and submitted today. [facility] has accepted him pending the final steps. CM will follow. Date Signed: 10/24/2017 12:13 PM Electronically Signed By:Salena Jones LCSW
--- NOTE | 2017-10-24 16:35 | ASMTCMCOM ---
CM Note CM Note Notes: Received notice from OBRA coordinator Althea Lezama that patient's PASRR is approved for 60 days. Information faxed to [facility]. We will await patient's daughter's return so she can sign necessary paperwork for patient to transfer to [facility] for rehab. CM will follow. Date Signed: 10/24/2017 03:29 PM Electronically Signed By:Salena Jones LCSW
--- NOTE | 2017-10-24 17:10 | HOSPPROG ---
Hospitalist Progress Note Assessment/Plan: # encephalopathy, acute on chronic - may be at baseline # CAP - s/p abx x 7 days # influenza A, rhinovirus/enterovirus + - s/p tamiflu # sepsis - d/t pna; resolved # AHRF - d/t pna; resolved, on RA # chronic dysphagia d/t XRT in setting of tongue cancer # etOH abuse # anemia - likely Fe defic and etOH # diarrhea - resolved # lactic acidosis - resolved # mental health disorder - hold zyprexa # htn - lisinopril # dispo - to [facility] when possible Subjective: no acute overnight events; Objective: Vital Signs Temp Pulse Resp BP Pulse Ox 36.7 C 72 18 129/88 H 92 10/24/17 15:35 10/24/17 16:00 10/24/17 16:00 10/24/17 15:35 10/24/17 16:00 Laboratory Results 10/21/17 04:26 10/21/17 04:26 10/23/17 10/24/17 10/25/17 05:59 05:59 05:59 Intake Total 900 150 Balance 900 150 PT 16.9 SEC (12.0-15.0) H 10/12/17 10:55 INR 1.36 (0.83-1.16) H 10/12/17 10:55 - Physical Exam Constitutional: no apparent distress, appears nourished Cardiovascular: regular rate and rhythym, no murmur, rub, or gallop Respiratory: no respiratory distress, no rales or rhonchi Gastrointestinal: soft, non-tender abdomen, no palpable masses ICD10 Worksheet Patient Problems: Problems Problem Status Onset chronic disease mgmt/transitional care Acute PTSD (post-traumatic stress disorder) Acute Severe major depression Acute Alcohol withdrawal Acute Pneumonia Acute Influenza Acute
[2017-10-25] MEDS: LEVOTHYROXINE 25 MCG TAB PO SCH (03:52)
[2017-10-25] MEDS: IPRATROPIUM/ALBUTEROL 3 ML DEYVIAL IH SCH ×4 (05:03→21:03)
[2017-10-25] MEDS: ENOXAPARIN 40 MG/0.4 ML SYR SC SCH (08:26)
[2017-10-25] MEDS: LISINOPRIL 40 MG TAB PO SCH (08:26)
[2017-10-25] MEDS: TAMSULOSIN HCL 0.4 MG CAP PO SCH ×2 (08:26→21:22)
[2017-10-25] MEDS: FOLIC ACID 1 MG TAB PO SCH (08:26)
[2017-10-25] MEDS: THIAMINE HCL 100 MG TAB PO SCH (08:26)
[2017-10-25] MEDS: GABAPENTIN 250 MG/5 ML 30 ML BOTTLE PO SCH ×3 (08:27→21:22)
--- NOTE | 2017-10-25 09:09 | HOSPPROG ---
Hospitalist Progress Note Assessment/Plan: # encephalopathy, acute on chronic - may be at baseline # CAP - s/p abx x 7 days # influenza A, rhinovirus/enterovirus + - s/p tamiflu # sepsis - d/t pna; resolved # AHRF - d/t pna; resolved, on RA # chronic dysphagia d/t XRT in setting of tongue cancer # etOH abuse # anemia - likely Fe defic and etOH # diarrhea - resolved # lactic acidosis - resolved # mental health disorder - hold zyprexa # htn - lisinopril # dispo - to [facility] when possible Subjective: no complaints Objective: Vital Signs Temp Pulse Resp BP Pulse Ox 36.6 C 80 16 147/76 H 92 10/25/17 07:03 10/25/17 07:03 10/25/17 07:03 10/25/17 07:03 10/25/17 07:03 Laboratory Results 10/21/17 04:26 10/21/17 04:26 10/24/17 10/25/17 10/26/17 05:59 05:59 05:59 Intake Total 150 1500 Balance 150 1500 PT 16.9 SEC (12.0-15.0) H 10/12/17 10:55 INR 1.36 (0.83-1.16) H 10/12/17 10:55 - Physical Exam Constitutional: no apparent distress, appears nourished Eyes: anicteric sclera Cardiovascular: No edema Respiratory: no respiratory distress Gastrointestinal: No distension Genitourinary: No rivas in urethra Skin: warm Neurologic: No facial droop Psychiatric: not anxious ICD10 Worksheet Patient Problems: Problems Problem Status Onset chronic disease mgmt/transitional care Acute PTSD (post-traumatic stress disorder) Acute Severe major depression Acute Alcohol withdrawal Acute Pneumonia Acute Influenza Acute
--- NOTE | 2017-10-25 11:32 | ASMTCMCOM ---
CM Note CM Note Notes: Spoke with Belle at [facility] to confirm she had a copy of the 60 day approval from Althea Lezama. Belle tells me she has already sent papers to patient's daughter who is out of the country so she can sign them and fax them back. Belle will let me know as soon as she gets them back. Hopefully this may expedite the process and we won't have to wait until her return to the country. CM will follow. Date Signed: 10/25/2017 11:32 AM Electronically Signed By:Salena Jones LCSW
--- NOTE | 2017-10-25 12:48 | ASMTCMCOM ---
RONALDO Note RONALDO Note Notes: Belle from [facility] stopped by to visit with patient. She states patient will have to out of the roll belt and any restraints for 24 hours before she can take him. Will notify patient's nurse and dr. HIGGINS will follow. Date Signed: 10/25/2017 12:47 PM Electronically Signed By:Salena Jones LCSW
[2017-10-26] MEDS: IPRATROPIUM/ALBUTEROL 3 ML DEYVIAL IH SCH ×2 (05:20→11:54)
[2017-10-26] MEDS: LEVOTHYROXINE 25 MCG TAB PO SCH (05:44)
[2017-10-26] MEDS: LISINOPRIL 40 MG TAB PO SCH (07:50)
[2017-10-26] MEDS: GABAPENTIN 250 MG/5 ML 30 ML BOTTLE PO SCH (07:50)
[2017-10-26] MEDS: THIAMINE HCL 100 MG TAB PO SCH (07:52)
[2017-10-26] MEDS: TAMSULOSIN HCL 0.4 MG CAP PO SCH (07:52)
[2017-10-26] MEDS: FOLIC ACID 1 MG TAB PO SCH (07:52)
[2017-10-26] MEDS: ENOXAPARIN 40 MG/0.4 ML SYR SC SCH (07:52)
[2017-10-26 07:53] VITALS: BP 141/78
[2017-10-26 08:05] VITALS: PULSE 78; RESP 14; TEMP 93.3; O2SAT 95
--- NOTE | 2017-10-26 10:45 | PDIAF ---
- Diagnosis Diagnosis: Pneumonia, Flu, Resp Failure, Sepsis Code Status: Full Code - Medication Management Discharge Medications: Medications to Continue on Transfer Herbals/Supplements -Info Only 1 ea PO AD 10/09/16 [Last Taken Unknown] Tamsulosin HCl [Flomax 0.4 MG (*)] 0.4 mg PO BID #0 cap 10/28/16 [Last Taken Unknown] Levothyroxine Sodium [Synthroid] 25 mcg PO DAILY #14 tablet 09/22/17 [Last Taken Unknown] Lisinopril [Zestril 40 mg (*)] 40 mg PO DAILY #14 tab 09/22/17 [Last Taken Unknown] Acetaminophen [Tylenol 325mg (*)] 650 mg PO Q4HRS PRN tab 10/22/17 [Last Taken Unknown] Folic Acid [Folic Acid 1 MG (*)] 1 mg PO DAILY tab 10/22/17 [Last Taken Unknown ] Gabapentin [Neurontin Oral Liquid] 100 mg PO TID bottle 10/22/17 [Last Taken Unknown] Loperamide HCl [Imodium 2 mg (*)] 2 mg PO QID PRN cap 10/22/17 [Last Taken Unknown] Melatonin [Melatonin 3 MG (*)] 3 mg PO HS tab 10/22/17 [Last Taken Unknown] Thiamine HCl [Vitamin B-1] 100 mg PO DAILY tab 10/22/17 [Last Taken Unknown] Penitentiary Antibiotics: NA Discharge Medications: Refer to the Discharge Home Medication list for PRN reason. PICC Care - Routine: N/A - Orders Services needed: Registered Nurse, Certified Vp [employer] Marketing [employer], Master Doll Repairer , Physical Therapy, Occupational Therapy, Speech Language Pathologist Isolation Type: Droplet Isolation Oxygen: NA Diet Texture: Dysphagia 2 - Mechanically Altered - Chopped, Ground, Thin Liquids , Meds Whole in Puree Angel: Not applicable - Follow Up Care Current Providers and Referrals: Chel Tatum NP [Primary Care Provider] - 3 days of d/c SNF/Rehab
--- NOTE | 2017-10-26 12:27 | GDS ---
[f rep st] DISCHARGE SUMMARY ALL DIAGNOSES: 1. Mrlhp-ee-wvfhzix encephalopathy. 2. Community-acquired pneumonia. 3. Influenza A-positive. 4. Rhinovirus/enterovirus-positive. 5. Sepsis due to pneumonia, which has resolved. 6. Acute hypoxic respiratory failure. 7. Chronic dysphagia. 8. Alcohol abuse. 9. Anemia. 10. Diarrhea. 11. Lactic acidosis. 12. Hypertension. HOSPITAL COURSE: A 72-year-old man admitted with cough. Found to have a pneumonia. Course has been c omplicated by his ongoing encephalopathy. Per his daughter, he has had some worsening mental status o guzman the past year. I suspect that this is due to Alzheimer dementia in the setting of alcohol abuse. He has likely reached his baseline, and will not improve much further. He is not safe to be discharge d to independent living at this point. His daughter is his MDPOA, and agrees with him going to [facility]. He is discharged in stable condition. He completed a full course of antibiotics for communit y-acquired pneumonia. Is on room air, with no cough on the day of discharge. BILLING: I spent more than 30 minutes on the day of discharge coordinating care. /[id number]/MODL
--- NOTE | 2017-10-26 12:48 | ASMTCMCOM ---
CM Note CM Note Notes: Patient's daughter did sign the paperwork for [facility] and faxed it back to them. Patient has been without a sitter or roll belt now since 2:00 PM yesterday. Belle has approved discharge to their facility today. Transport will pecan picker patient at 2:00 (14:00) today. Nurse was notified and will do report. Transfer of Care summary was faxed to [facility]. No further discharge needs. Date Signed: 10/26/2017 12:47 PM Electronically Signed By:Salena Jones LCSW
--- NOTE | 2017-10-27 15:47 | ASDISCHSUM ---
Discharge Information Plan Status:SNF Medically Cleared to Leave: Discharge Date:10/26/2017 02:19 PM D/C Disposition:Custodial Facility ADT D/C Disposition:Custodial Facility Projected Discharge Date:10/26/2017 12:55 PM Transportation at D/C:Wheelchair Van Discharge Delay Reason: Follow-Up Date:10/26/2017 12:55 PM Discharge Slot: Final Diagnosis: Placement Information Referral Type:*Group Home/SNF Referral ID:[facility]-[id number] Provider Name: Address 1: Phone Number: Address 2: Fax Number: City: Selection Factors: State: Referral Type:*Group Home/SNF Referral ID:[facility]-[id number] Provider Name:Lexii Del Cid/Medialive Address 1:[address] [facility] Phone Number: Address 2: Fax Number: [facility]:[place] Selection Factors: State:[place] Patient Contact Information Contact Name:IZZY(EX )MARGARITA Relationship:Other Address:[address] [place] [address] City:[place] Alternate Phone: State/Zip Code:[place] [address] Email: Financial Information Financial Class:Medicare Primary Plan Desc:MEDICARE INPATIENT Primary Plan Number:[id number] Secondary Plan Desc: Secondary Plan Number:[id number] Assessment Information [facility] CM Progress Note CM Note CM Note Notes: Pt. is a 72-year-old man admitted for sepsis, PNA, encephalopathy and ETOH withdrawal. Hx. BPH, hypothyroidism, PTSD, Depression, excessive alcohol use, HTN, and smoking. Pt. on CIWA protocol. Per notes, states he wants to stop drinking. PT is ordered. Await consult to assist in d/c planning. CM to follow. Date Signed: 10/13/2017 05:09 PM Electronically Signed By:Althea Morris LCSW [facility] CM Progress Note CM Note CM Note Notes: Per RN, Pt. still encephalopathic today. PT recommending SNF. Ron made referrals via [employer] today. Await responses. Pt. will need PASRR social work assessment when mentally clears. Hx. depression and PTSD. CM to follow for d/c POC. Date Signed: 10/14/2017 12:02 PM Electronically Signed By:Althea Morris LCSW [facility] Progress Note CM Note CM Note Notes: Today Yuliet from [facility] asked if Pt. had a plan for housing after SNF rehab. Ron found that Pt's Izzy Lynch listed as medical decision maker in electronic chart. No official [facility] paperwork in chart. Due to Pt. not being decisional today, Ron called Izzy to help w/ d/c planning. Izzy grateful for the call. Plans to visit Pt. this evening. Plan to work with SNFs to place Pt. Izzy states that Pt. spent a few months at [facility] last year around this time. Izzy found [facility] to be "acceptable". Interested in options, including [facility]. Izzy states she and Pt. , but she is happy to help with his care decisions. Izzy explained that she and Pt. shared a home at [address] [place] [address] but after divorce she asked him to move out on 09/19/17. Pt's last place to stay was in a hotel per Izzy. Izzy is OK with receiving calls from SNFs. Left Yuliet a msg letting her know she could call Izzy. Izzy states she and their daughter have been looking into a place called "[facility]" in [facility]. They apparently have less expensive rooms. [facility] provided CM and Floor phone numbers for Izzy. RONALDO to follow for d/c POC. Date Signed: 10/14/2017 03:33 PM Electronically Signed By:Althea Morris LCSW [facility] RONALDO Progress Note CM Note CM Note Notes: CM spoke with pt's exwife Izzy regarding pt's d/c plan. Izzy is getting pressured by her family to disengage herself from pt because of the stress she has experienced due to pt's alcoholism. Izzy said he has a daugthter in [facility] named Leticia [phone] and she and Leticia are in contact discussing pt's situation. Moving forward, it would be advisable for Leticia to make decisions regarding pt's medical care. He and Izzy are and there is no legal documentation appointing her proxy or MDPOA. Izzy thinks this will be a more positive way to go as it allows pt's daughter to participate and reduces Izzy's stress. She and Izzy will continue to discuss pt's options together. [facility] in [place] has accepted pt, Izzy Pedraza and Jennifer are interested but will need more information over the next few days before making a decision. Date Signed: 10/15/2017 04:15 PM Electronically Signed By:KENNETH Jacob [facility] RONALDO Progress Note CM Note CM Note Notes: CM consulted Nirmal the wide area network engineer to assist on assigning someone to be power of workers compensation attorney. Nirmal spoke to daughter, ex and a friend to charisma andrea who is interested in taking on the role. Pts daughter has been idenitifed to be power of workers compensation attorney. Ex does not want to take on that role. CM spoke w/ daughter regarding d/c POC. The [facility] and [facility] has accepted this far. Daughter would like pt to go to [facility] when medically stable. CM to follow. Plan: [facility] Date Signed: 10/17/2017 03:16 PM Electronically Signed By:SILVIO Cole LACE ENEDINA Length of stay for Answers: 7-13 days current admission Acuity / Level of Answers: Yes Care: Did the patient have an inpatient admission? Comorbidities - select Answers: Other all that apply # of Emergency department Answers: 9-12 visits in the last 6 months Social determinants Answers: History of substance abuse (ETHO, street drugs, prescription drugs, etc.) Homelessness (street, nursing home) Mental health diagnosis (anxiety, depression, pers onality disorders, etc.) Score: 23 Date Signed: 10/18/2017 03:03 PM Electronically Signed By:SILVIO Cole [facility] RONALDO Progress Note CM Note CM Note Notes: Pt is requesting CM to call ex Izzy to inquire about his car and his multi-colored jacket. CM left Izzy a message and requested that Izzy touch base w/ pt or call CM back. The plan remains the same. Pt will d/c to [facility] when medically stable. CM to follow. Plan: [facility] Date Signed: 10/19/2017 03:29 PM Electronically Signed By:SILVIO Cole [facility] Progress Note CM Note CM Note Notes: Izzy patient's states patient's car is at her house. She does not know where his multicolored jacket is but thinks it is at the hospital with the things he came in with. Patient's d/c plan remains [facility] when he is ready for d/c. Patient's cognitive function is below baseline at the current time. Dr. Lemus giving patient another day for recovery with d/c likely in the next couple of days. CM will follow. Date Signed: 10/20/2017 01:12 PM Electronically Signed By:Salena Jones LCSW [facility] Progress Note CM Note CM Note Notes: Spoke w/Belle at [facility] re; dc poc. Belle states they were not aware pt was coming today and pt's dtr Leticia who is MDPOA as pt is not decisional, has not yet signed the paperwork. Belle tells CM that Leticia is out of town and furthermore that since they did not know he was coming, they do not have a bed for him until Tuesday. CM notified MD and called pt's dtr to leave her a message. DC Plan: [facility] Date Signed: 10/22/2017 11:09 AM Electronically Signed By:Carolyn Flanagan RN [facility] CM Progress Note CM Note CM Note Notes: Spoke with [facility] about patient being ready for d/c. Chucky states they have to have someone to sign all the paperwork for patient and patient's daughter, Leticia is the named proxy for him. Leticia is out of the country and will not return until Tuesday of this week. In addition, they will need a new PASRR which was completed and submitted today. [facility] has accepted him pending the final steps. CM will follow. Date Signed: 10/24/2017 12:13 PM Electronically Signed By:Salena Jones LCSW [facility] RONALDO Progress Note CM Note CM Note Notes: Received notice from OBRA coordinator Althea Lezama that patient's PASRR is approved for 60 days. Information faxed to [facility]. We will await patient's daughter's return so she can sign necessary paperwork for patient to transfer to [facility] for rehab. CM will follow. Date Signed: 10/24/2017 03:29 PM Electronically Signed By:Salena Jones LCSW [facility] Progress Note CM Eleanor HIGGINS Note Notes: Spoke with Belle at [facility] to confirm she had a copy of the 60 day approval from Althea Lezama. Belle tells me she has already sent papers to patient's daughter who is out of the country so she can sign them and fax them back. Belle will let me know as soon as she gets them back. Hopefully this may expedite the process and we won't have to wait until her return to the country. RONALDO will follow. Date Signed: 10/25/2017 11:32 AM Electronically Signed By:Salena Jones LCSW [facility] RONALDO Progress Note RONALDO Webster CM Note Notes: Belle from [facility] stopped by to visit with patient. She states patient will have to out of the roll belt and any restraints for 24 hours before she can take him. Will notify patient's nurse and dr. HIGGINS will follow. Date Signed: 10/25/2017 12:47 PM Electronically Signed By:Salena Jones LCSW [facility] RONALDO Progress Note RONALDO Webster CM Note Notes: Patient's daughter did sign the paperwork for [facility] and faxed it back to them. Patient has been without a sitter or roll belt now since 2:00 PM yesterday. Belle has approved discharge to their facility today. 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 Nurse was notified and will do report. Transfer of Care summary was faxed to [facility]. No further discharge needs. Date Signed: 10/26/2017 12:47 PM Electronically Signed By:Salena Jones LCSW Case Management Discharge Plan Note Case Management Discharge Discharge Order Complete? Answers: Yes Patient to Obtain Answers: Other Notes: [facility] Medications Transportation Arranged Answers: Other Notes: [facility] will transport Transport will Pick (Date 10/26/2017 12:00 AM & Time) Case Management Transport Answers: Yes Form Complete Faxed Final Orders Answers: Yes Notes: [facility] Agency/Facility Transfer Answers: Yes Notes: [facility] Report Printed & Faxed to Receiving Agency Family Notified Answers: Yes Notes: Daughter has been notified Discharge Comments Notes: Patient to d/c to [facility] today. Transport arranged by [facility]. Nurse given number for report. Date Signed: 10/26/2017 12:52 PM Electronically Signed By:Salena Jones LCSW Intervention Information Intervention Type:*IM-Signed Date of Service:10/26/2017 11:07 AM Patient Type:Inpatient Staff Member:Digna Nunez Hours: Discipline: Severity: Comment:
== END 2017-10-26 14:19 | DRG 871 ==
LOC: OBSVTOIN 11:57 → F3E 12:58
PROVIDERS: ADMIT Hospitalist; ATTEND Internal Medicine
PROC: HZ2ZZZZ Detoxification Services for Substance Abuse Treatment (ICD-10-PCS; principal; 2017-10-12)
DX: A41.9 Sepsis, unspecified organism (principal); E87.2 Acidosis; J15.9 Unspecified bacterial pneumonia; J10.08 Influenza due to other identified influenza virus with other specified pneumonia; B97.19 Other enterovirus as the cause of diseases classified elsewhere; B97.89 Other viral agents as the cause of diseases classified elsewhere; J96.01 Acute respiratory failure with hypoxia; F10.231 Alcohol dependence with withdrawal delirium; G30.9 Alzheimer's disease, unspecified; F02.80 Dementia in other diseases classified elsewhere, unspecified severity, without behavioral disturbance, psychotic disturbance, mood disturbance, and anxiety; R13.10 Dysphagia, unspecified; D50.9 Iron deficiency anemia, unspecified; D63.8 Anemia in other chronic diseases classified elsewhere; R19.7 Diarrhea, unspecified; E03.9 Hypothyroidism, unspecified; N40.0 Benign prostatic hyperplasia without lower urinary tract symptoms; I10 Essential (primary) hypertension; F43.12 Post-traumatic stress disorder, chronic; Z85.810 Personal history of malignant neoplasm of tongue; Z92.3 Personal history of irradiation; F17.210 Nicotine dependence, cigarettes, uncomplicated; Z59.0 Homelessness
CPT/HCPCS: 82607-90; 92526-GN; 92610-GN; 97110-GP; 97116-GP; 97162-GP; 97166-GO; 97530-GO; 97530-GP; 97535-GO; G8978-GP-CI; G8978-GP-CM; G8979-GP-CI; G8987-GO-CL; G8988-GO-CI; G8996-GN-CM; G8997-GN-CJ; J0456; J0696; J1650; J2543; J3411

== ENCOUNTER → 2018-02-22 | Outpatient (CLI) | payer OTHER | LOC: FIMAGING 10:00 | PROVIDERS: ATTEND Physician Assistant | DX: K82.4 Cholesterolosis of gallbladder (principal); B18.2 Chronic viral hepatitis C ==